=== PATIENT | female | born 1950 | race Caucasian/White ===

== ENCOUNTER 2017-06-18 09:59 | Day surgery (SDC) | payer MEDICARE, MEDICAID ==
[~2017-06-18 09:59] MED LIST: Acetaminophen TAB* 325 MG PO PRN; Buffered Lidocaine 0.9% SYRIN* 5 ML/SYR SYRINGE INTRADERM ONE
[2017-06-18] MEDS ORDERED: Metoprolol Tartrate TAB* 25 MG ONE (10:41)
[2017-06-18] MEDS ORDERED: Buffered Lidocaine 0.9% SYRIN* 5 ML/SYR SYRINGE ONE (10:52)
[2017-06-18] MEDS ORDERED: Midazolam* 1 MG/ML 2 ML VIAL (2 MG) ONE (11:06)
[2017-06-18 11:38] VITALS: BP 106/79
--- NOTE | 2017-06-18 12:00 | OP ---
DATE OF OPERATION/DATE OF DICTATION: 06/18/2017 - [facility] DATE OF : 1950. SURGEON: Dr. Ang Weber. DIETARY MANAGER: None. ANESTHESIA: Topical with intravenous sedation. PRE-OP DIAGNOSIS: Cataract, right eye. POST-OP DIAGNOSIS: Cataract, right eye. OPERATIVE PROCEDURE: Phacoemulsification and cataract extraction with posterior chamber intraocular lens implant, right eye. COMPLICATIONS: None. BLOOD LOSS: None. DESCRIPTION OF PROCEDURE: The patient was brought to the operating room and received a small amount of intra-venous sedation. A drop of Tetracaine was placed in her right eye. She was prepped and draped in the usual sterile fashion for ophthalmic surgery and attention was directed to the right eye where a speculum was placed. A paracentesis was created at the 11 o'clock position and 0.1 cc of 1 percent preservative-free Lidocaine was injected into the anterior chamber followed by DisCoVisc. The eye was digitally stabilized while a 2.75 mm keratome was used to create a triplanar clear corneal incision at the 9 o'clock position. A continuous curvilinear capsulorrhexis was created with a cystotome and Utrata forceps. BSS on a cannula was used to hydrodissect the lens from the capsule. Phacoemulsification was performed in a divide-and- conquer technique to create four fragments which were removed. Residual cortical material was removed with irrigation and aspiration. DisCoVisc was used to inflate the capsular bag and an AUOOTO 23.0 diopter lens was folded and inserted into the capsular bag. DisCoVisc was removed using irrigation and aspiration. BSS on a cannula was used to hydrate the corneal stroma and seal the wound. At the end of the case the pupil was round and the lens was centered. The eye was of normal pressure and the wound was water tight. The speculum was removed and topical Maxitrol ointment was placed on the surface of the eye. The eye was closed, patched and shielded and the patient was sent to the recovery room in stable condition with post operative instructions and follow-up appointment given. [id number]/CPS #: [id number] MTDD
[2017-06-18] MEDS ORDERED: Neomycin/Polymy/Dex OPHTH.OIN* 3.5 GM ONE (12:09)
[2017-06-18] MEDS ORDERED: Lidocaine 1% MPF* 2 ML VIAL ONE (12:09)
[2017-06-18] MEDS ORDERED: Cyclopentolate 1% OPTH.SOL* 2 ML BTL ONE (12:09)
[2017-06-18] MEDS ORDERED: Ketorolac 0.5% OPHTH (NF) 0.5 % 5 ML BTL ONE (12:09)
[2017-06-18] MEDS ORDERED: Phenylephrine 2.5% OPTH.SOL* 2 ML BTL ONE (12:09)
[2017-06-18] MEDS ORDERED: Tetracaine 0.5% OPTH.SOL 4 ML* 1 DROP BTL ONE (12:09)
[2017-06-18] MEDS ORDERED: Tropicamide 1% OPTH.SOL* BTL ONE (12:09)
== END 2017-06-18 11:39 | disposition home or self-care (01) ==
LOC: OREAST 09:59
PROVIDERS: ATTEND Ophthalmology
DX: H25.041 Posterior subcapsular polar age-related cataract, right eye (principal); E11.9 Type 2 diabetes mellitus without complications; Z79.84 Long term (current) use of oral hypoglycemic drugs; J45.909 Unspecified asthma, uncomplicated; J44.9 Chronic obstructive pulmonary disease, unspecified; F32.9 Major depressive disorder, single episode, unspecified; Z86.73 Personal history of transient ischemic attack (TIA), and cerebral infarction without residual deficits
CPT/HCPCS: A9270-GY; J2250; V2632

== ENCOUNTER 2017-06-25 09:24 | Day surgery (SDC) | payer MEDICARE, MEDICAID ==
[2017-06-25] MEDS ORDERED: fentaNYL* 50 MCG/ML 2 ML VIAL (100 MCG VIAL) ONE (09:33)
[2017-06-25] MEDS ORDERED: Midazolam* 1 MG/ML 2 ML VIAL (2 MG) ONE (09:33)
[2017-06-25] MEDS ORDERED: Insulin LISPRO* 1 UNITS UNIT SUBCUT ONE ×3 (09:57→10:02)
[2017-06-25] MEDS ORDERED: Dextrose 50% Syringe 50 ML* 25 GM/50 ML SYRINGE IV PUSH PRN (09:57)
[2017-06-25 10:44] VITALS: BP 158/90
--- NOTE | 2017-06-25 13:10 | OP ---
DATE OF OPERATION/DATE OF DICTATION: 06/25/2017 - [facility] DATE OF : 1950. SURGEON: Dr. Ang Weber. BEHAVIORAL HEALTH CARE COORDINATOR: None. ANESTHESIA: Topical with intravenous sedation. PRE-OP DIAGNOSIS: Cataract, left eye. POST-OP DIAGNOSIS: Cataract, left eye. OPERATIVE PROCEDURE: Phacoemulsification and cataract extraction with posterior chamber intraocular lens implant, left eye. COMPLICATIONS: None. BLOOD LOSS: None. DESCRIPTION OF PROCEDURE: The patient was brought to the operating room and received a small amount of intravenous sedation. A drop of Tetracaine was placed in her left eye. She was prepped and draped in the usual sterile fashion for ophthalmic surgery and attention was directed to the left eye where a speculum was placed. A paracentesis was created at the 5 o'clock position and 0.1 cc of 1 percent preservative-free Lidocaine was injected into the anterior chamber followed by DisCoVisc. The eye was digitally stabilized while a 2.75 mm keratome was used to create a triplanar clear corneal incision at the 3 o'clock position. A continuous curvilinear capsulorrhexis was created with a cystotome and Utrata forceps. BSS on a cannula was used to hydrodissect the lens from the capsule. Phacoemulsification was performed in a divide-and- conquer technique to create four fragments which were removed. Residual cortical material was removed with irrigation and aspiration. DisCoVisc was used to inflate the capsular bag and an AUOOTO 23.5 diopter lens was folded and inserted into the capsular bag. DisCoVisc was removed using irrigation and aspiration. BSS on a cannula was used to hydrate the corneal stroma and seal the wound. At the end of the case the pupil was round and the lens was centered. The eye was of normal pressure and the wound was water tight. The speculum was removed and topical Maxitrol ointment was placed on the surface of the eye. The eye was closed, patched and shielded and the patient was sent to the recovery room in stable condition with post operative instructions and follow-up appointment given. [id number]/CPS #: [id number] MTDD
[2017-06-25] MEDS ORDERED: Lidocaine 1% MPF* 2 ML VIAL ONE (13:55)
[2017-06-25] MEDS ORDERED: Tropicamide 1% OPTH.SOL* BTL ONE (13:55)
[2017-06-25] MEDS ORDERED: Cyclopentolate 1% OPTH.SOL* 2 ML BTL ONE (13:55)
[2017-06-25] MEDS ORDERED: Ketorolac 0.5% OPHTH (NF) 0.5 % 5 ML BTL ONE (13:55)
[2017-06-25] MEDS ORDERED: Neomycin/Polymy/Dex OPHTH.OIN* 3.5 GM ONE (13:55)
[2017-06-25] MEDS ORDERED: Phenylephrine 2.5% OPTH.SOL* 2 ML BTL ONE (13:55)
[2017-06-25] MEDS ORDERED: Tetracaine 0.5% OPTH.SOL 4 ML* 1 DROP BTL ONE (13:55)
== END 2017-06-25 11:05 | disposition home or self-care (01) ==
LOC: OREAST 09:24
PROVIDERS: ATTEND Ophthalmology
DX: H25.12 Age-related nuclear cataract, left eye (principal); E11.9 Type 2 diabetes mellitus without complications; Z79.84 Long term (current) use of oral hypoglycemic drugs; J44.9 Chronic obstructive pulmonary disease, unspecified; I10 Essential (primary) hypertension; E78.00 Pure hypercholesterolemia, unspecified; D50.9 Iron deficiency anemia, unspecified; E87.5 Hyperkalemia; Z87.891 Personal history of nicotine dependence; Z79.4 Long term (current) use of insulin
CPT/HCPCS: A9270-GY; J2250; J3010; V2632

== ENCOUNTER 2018-03-27 15:41 | Inpatient (IN) | payer MEDICARE, MEDICAID ==
[2018-03-27] MEDS ORDERED: Albuterol/Ipratropium NEB.SOL* Albuterol 2.5 MG/Ipratropium 0.5 MG 3 ML INH ONE (16:12)
[2018-03-27] MEDS ORDERED: Dexamethasone IV* 4 MG/ML 5 ML VIAL (20 MG) IVPB ONE (16:12)
[2018-03-27] MEDS ORDERED: NS 0.9% 1000 ML* 1,000 ML IV ONE (16:14)
--- NOTE | 2018-03-27 16:54 | ED ---
Shortness of Breath - HPI Summary HPI Summary: A 67 y/o female presents to the ED c/o dyspnea since 03/13/2018. She has a Hx of osteoporosis and COPD. She usually wears O2 at home when sleeping. She states that Ambien is not helping her anymore. She states that she feels like she is not breathing. Pt complains of chronic pain "from head to toe". - History of Current Complaint Chief Complaint: EDShortnessOfBreath Time Seen by Provider: 03/27/18 15:48 Hx Obtained From: Patient Onset/Duration: Gradual Onset, Lasting Weeks, Still Present Current Severity: Moderate - Allergy/Home Medications Allergies/Adverse Reactions: Allergies Allergy/AdvReac Type Severity Reaction Status Date / Time Adhesive Tape [Plastic Tape] Allergy Mild Rash Verified 06/25/17 09:47 theophylline Allergy Palpitation Verified 03/27/18 17:20 s [employer] baby products Allergy Mild Rash Uncoded 06/25/17 09:47 All Contrasts Allergy Unknown Uncoded 06/25/17 09:47 Reaction Details Home Medications: Home Medications Atorvastatin* [Lipitor*] 10 mg PO DAILY 03/27/18 [History Confirmed 03/27/18] Ergocalciferol (Vitamin D2) [Vitamin D2] 50,000 unit PO WEEKLY 03/27/18 [ History Confirmed 03/27/18] Torsemide TAB* [Demadex*] 20 mg PO DAILY 03/27/18 [History Confirmed 03/27/18] oxyCODONE/Acetamin 10/325(NF) [Percocet 10/325 (NF)] 1 tab PO Q6HR PRN 03/27/18 [History Confirmed 03/27/18] PMH/Surg Hx/FS Hx/Imm Hx Endocrine/Hematology History: Reports: Hx Diabetes - Type 2 diabetes, ON ORAL MEDS & INSULI AT BEDTIME, Hx Anemia - ON DAILY Denies: Hx Thyroid Disease Cardiovascular History: Reports: Hx Congestive Heart Failure, Hx Hypotension, Hx Hypertension - ON DAILY MEDS, Other Cardiovascular Problems/Disorders - Cardiomyopathy /c EF of 15% Denies: Hx Pacemaker/ICD Respiratory History: Reports: Hx Asthma - HAS PRN INHALER, USES ONLY WHEN COLD, ANXIOUS, Hx Chronic Bronchitis, Hx Chronic Obstructive Pulmonary Disease (COPD) , Hx Pneumonia, Hx Seasonal Allergies, Hx Sleep Apnea, Other Respiratory Problems/Disorders - USES OXYGEN AT NIGHT Denies: Hx Lung Cancer GI History: Reports: Hx Gastroesophageal Reflux Disease - ON DAILY MEDS, STATES NO Sx IN LONG TIME Musculoskeletal History: Reports: Hx Arthritis - OA, Hx Back Problems - Pain ( arthropyosis), Hx Bursitis - SCHOULDERS, Hx Congenital Bone Abnormalities - Club foot, Hx Osteoporosis, Other Musculoskeletal History - CLUB FOOT, WEARS LEG BRACES UP TO KNEES Sensory History: Reports: Hx Cataracts - BILATERAL, Hx Contacts or Glasses - GLASSES Denies: Hx Hearing Aid Opthamlomology History: Reports: Hx Cataracts - BILATERAL, Hx Contacts or Glasses - GLASSES Psychiatric History: Reports: Hx Anxiety - HAS MEDS AVAILABLE, Hx Depression, Hx Panic Disorder - CLAUSTROPHOBIA Denies: Hx Bipolar Disorder, Hx of Violent Episodes Against Others - Surgical History Surgery Procedure, Year, and Place: MANY ON KNEES AND FEET,. C SECTIONS x3,. Cardiac cath in 2009. multiple orthopedic surgeries. 1988 HYSTERECTOMY, STATES THIS WAS HER LAST SURGERY. 2013 COLONOSCCOPY/ENDOSCOPY Hx Anesthesia Reactions: No - Immunization History Date of Tetanus Vaccine: Unk Date of Influenza Vaccine: Fall 2014 Infectious Disease History: No Infectious Disease History: Denies: Hx Tuberculosis, Traveled Outside the [place] in Last 30 Days - Family History Known Family History: Positive: Cardiac Disease, Hypertension, Diabetes - Social History Alcohol Use: None Substance Use Type: Reports: None Smoking Status (MU): Former Smoker Type: Cigarettes Amount Used/How Often: 1.5 PPD Length of Time of Smoking/Using Tobacco: Since age 15, except quit once for 5years and once for 2years. Have You Smoked in the Last Year: No Review of Systems Negative: Fever Positive: Other - Positive: dyspnea All Other Systems Reviewed And Are Negative: Yes Physical Exam - Summary Physical Exam Summary: GENERAL: Patient is a well-developed and nourished Female who is lying comfortable in the stretcher. Patient is not in any acute respiratory distress. HEAD AND FACE: Normocephalic EYES: PERRLA, EOMI x 2. EARS: Hearing grossly intact. MOUTH: Dry mucous membranes NECK: Supple, trachea is midline, no adenopathy, no JVD, no carotid bruit. CHEST: Symmetric, no tenderness at palpation LUNGS: Very poor air entry bilaterally. CVS: Regular rate and rhythm, S1 and S2 present, no murmurs or gallops appreciated. ABDOMEN: Soft, non-tender. Bowel sounds are normal. No abdominal abnormal pulsations. EXTREMITIES: Full ROM in all major joints, no edema, no cyanosis or clubbing. NEURO: Alert and oriented x 3. No acute neurological deficits. Speech is normal and follows commands. SKIN: Dry and warm Triage Information Reviewed: Yes Vital Signs On Initial Exam: Initial Vitals Temp Pulse Resp BP Pulse Ox 98.0 F 57 25 153/59 99 03/27/18 15:45 03/27/18 15:45 03/27/18 15:45 03/27/18 15:45 03/27/18 15:45 Vital Signs Reviewed: Yes Diagnostics - Vital Signs Vital Signs Temp Pulse Resp BP Pulse Ox 03/27/18 16:04 55 16 161/94 97 03/27/18 16:00 15 03/27/18 15:51 53 16 98 03/27/18 15:45 98.0 F 57 25 153/59 99 - Laboratory Result Diagrams: 03/28/18 04:23 03/28/18 04:23 Lab Statement: Any lab studies that have been ordered have been reviewed, and results considered in the medical decision making process. - Radiology CXR Radiology Interpretation Completed By: Radiologist Summary of Radiographic Findings: 1. CARDIOMEGALY INCREASED IN SIZE. 2. SMALL LEFT PLEURAL EFFUSION. This report has been reviewed by the ED physician. - EKG 1617 Cardiac Rate: NL - 51 bpm Summary of EKG Findings: Junctional rhythm, LVH, incomplete LBBB on EKG. Course/Dx - Course Course Of Treatment: A 67 y/o female presents to the ED c/o dyspnea since 2017. Remarkable for a chest x-ray that shows cardiomegaly and pleural effusion , BNP elevated. Patient treated with steroids, breathing treatments, Lasix and will be admitted to the hospital for COPD and CHF exacerbation. Case Discussed with hospitalist. Results discussed with patient. - Diagnoses Provider Diagnoses: COPD with exacerbation, CHF (congestive heart failure) - Physician Notifications Discussed Care of Patient With: Joe Up - hospitalist Time Discussed With Above Provider: 17:30 Instructed by Provider To: Admit As Inpatient Discharge - Sign-Out/Discharge Documenting (check all that apply): Patient Departure - ADM - Discharge Plan Condition: Improved Disposition: ADMITTED TO [facility] - Billing Disposition and Condition Condition: IMPROVED Disposition: Admitted to [facility] - Attestation Statements Document Initiated by Scribe: Yes Documenting Scribe: Aleksandr Palomo Provider For Whom Scribe is Documenting (Include Credential): Fiordaliza Colon MD Scribe Attestation: IAleksandr, scribed for Fiordaliza Colon MD on 03/28/18 at 2001. Scribe Documentation Reviewed: Yes Provider Attestation: The documentation as recorded by the Aleksandr booker accurately reflects the service I personally performed and the decisions made by me, Julia Colon MD
[2018-03-27] MEDS ORDERED: Ondansetron INJ* 2 MG/ML VIAL IV ONE (17:04)
--- NOTE | 2018-03-27 17:05 | RAD ---
INDICATION: Cough. COMPARISON: Comparison is made with a prior study from August 01, 2015. TECHNIQUE: AP and lateral views of the chest were obtained. FINDINGS: The heart is moderately enlarged and appears to have increased in size from the prior study. The lungs appear clear. There is a small left pleural effusion. IMPRESSION: 1. CARDIOMEGALY INCREASED IN SIZE. 2. SMALL LEFT PLEURAL EFFUSION.
[2018-03-27 17:57] LABS: ABS Basophils 0.1 10^3/ul (0-0.2); ABS Eosinophils 0.1 10^3/ul (0-0.6); ABS Lymphocytes 0.9 10^3/ul (1.0-4.8); ABS Monocytes 0.6 10^3/ul (0-0.8); ABS Neutrophils 4.9 10^3/ul (1.5-7.7); ABS Nucleated RBC 0 10^3/ul; Eosinophil % 1.9 % (0-6); Hematocrit 32 % (35-47); Hemoglobin 9.9 g/dl (12.0-16.0); Lymphocyte % 13.7 % (25-47); Mean Corpuscular HGB Conc 31 g/dl (31-36); Mean Corpuscular Hemoglobin 25 pg (27-31); Mean Corpuscular Volume 81 fL (80-97); Nucleated Red Blood Cells % 0.1; Platelet Count 193 10^3/ul (150-450); Red Blood Count 3.95 10^6/ul (4.00-5.40); Red Cell Distribution Width 16 % (10.5-15); White Blood Count 6.5 10^3/ul (3.5-10.8)
[2018-03-27 18:07] LABS: INR 1.17 (0.77-1.02)
[2018-03-27 18:11] LABS: EGFR Non-African American 46.3 (>60)
[2018-03-27] MEDS ORDERED: Furosemide IV* 10 MG/ML VIAL (40 MG) IV ONE (18:17)
[2018-03-27] MEDS ORDERED: oxyCODONE/Acetamin 10/325(NF) TAB PO PRN (18:18)
[2018-03-27] MEDS ORDERED: oxyCODONE/Acetamin 5/325 MG* TAB PO ONE (18:31)
--- NOTE | 2018-03-27 19:32 | ADMNOTE ---
Subjective Date of Service: 03/27/18 Interval History: pt is full code this is admission h/p this blog writer spent 60 min to eval pt for admission hpi this is a 67 yr old wf with multiple medical comorbidities presented to er with increase sob for 2-3 weeks ago ---> came in today because she could bear with this sob. initial chest x ray showed small lll pleural effusion + cardiomegaly. initial bnp was 3100 ( baseline bnp since 2015 was around 2000). pt was given lasix in the er. pt has hx of chf with clean coronary ---> echo done 2013 showed ef 20 percent ---> more of non ischemic cardiomyopathy. no recent echo in chart ordered for am. intial ekg showed junctional rthyhm at rate of 51 with neg trop pt was given a sandwich and was found choking afterwards phx type ii dm morbid obesity bedbound can walk to commode with walker at home hx of leginellla/strep pna bacteremia 06/2015 hx of cva with left hemiparesis chronic leg edema miladis on nocturnal oxygen noncompliance prob copd depression vit d def pxhs s/p knee surgery with pins s/p hysterectomy s/p sewing needle trauma in the r leg since age 9 social hx quit cig smoking 7 yrs ago no etoh bedbound could only walk with a walker for distance to commode lives with son fhx mom + ra dm htn Family History: Findings - as above Social History: Findings - as above Past Medical History: Findings - as above Review of Systems - Measurements Intake and Output: Intake and Output Last 24 Hours 03/25/18 03/26/18 03/27/18 03/28/18 06:59 06:59 06:59 06:59 Intake Total 1000 Balance 1000 Weight 285 lb Intake: IV Fluids 1000 Objective Vital Signs - 8 hr 03/27/18 03/27/18 03/27/18 15:45 15:51 16:00 Temperature 98.0 F Pulse Rate 57 53 Respiratory 25 16 15 Rate Blood Pressure 153/59 (mmHg) O2 Sat by Pulse 99 98 Oximetry 03/27/18 03/27/18 03/27/18 16:04 17:00 17:03 Temperature Pulse Rate 55 53 55 Respiratory 16 19 16 Rate Blood Pressure 161/94 (mmHg) O2 Sat by Pulse 97 100 98 Oximetry 03/27/18 03/27/18 03/27/18 18:01 18:18 18:33 Temperature Pulse Rate 97 85 Respiratory 14 32 16 Rate Blood Pressure 164/124 (mmHg) O2 Sat by Pulse 94 89 Oximetry 03/27/18 03/27/18 03/27/18 18:35 19:03 19:07 Temperature Pulse Rate 87 89 86 Respiratory 20 13 23 Rate Blood Pressure 159/102 165/112 (mmHg) O2 Sat by Pulse 86 93 97 Oximetry Oxygen Devices in Use Now: Nasal Cannula Appearance: nad Eyes: No Scleral Icterus, PERRLA Ears/Nose/Mouth/Throat: - - + denture no oral thrush oral mucosa dry Neck: NL Appearance and Movements; NL JVP, Trachea Midline, No Thyroid Enlargement, Masses Respiratory: Symmetrical Chest Expansion and Respiratory Effort Cardiovascular: NL Sounds; No Murmurs; No JVD, RRR Abdominal: NL Sounds; No Tenderness; No Distention Extremities: - - + 3 pedal edema unable to raise le aginst gravity at all Skin: - - venous stasis scar Neurological: Alert and Oriented x 3, - - cranial n 2-12 wnl motor upper 5/5 le 3/5 sensory b/l ue 2/2 le 1/2 plantar reflex downards Result Diagrams: 03/28/18 04:23 03/28/18 04:23 Diagnostic Imaging: chest x ray small pleural effusion cardiomegaly EKG Data: ekg junctional rhytym at rate 51 Assess/Plan/Problems-Billing Assessment: 67 yr old wf with hx of cva bed bound copd nonischemic cardiomyopathy with ef 20 percent 2013 ( clean coronary 2009 ) presented to er with c/o worsening sob for 2 weeks pt's bnp is elevated compared to her baseline bnp back in --> dx acute systolic hf as a cause of sob - Patient Problems (1) Acute systolic HF (heart failure) Current Visit: Yes Status: Acute Code(s): I50.21 - ACUTE SYSTOLIC ( CONGESTIVE) HEART FAILURE SNOMED Code(s): 132697356 Comment: tele with sharon echo in am since last echo was 2013 lasix given from er lung sounds clear when ausculated ---> very low dose lasix may be needed to go home with (2) Type II diabetes mellitus Current Visit: Yes Status: Acute Comment: -Continue ISS -Hold PO meds -Check HBA1c in AM (3) MILADIS (obstructive sleep apnea) Current Visit: Yes Status: Acute Code(s): G47.33 - OBSTRUCTIVE SLEEP APNEA ( ADULT) (PEDIATRIC) SNOMED Code(s): 37211950 Comment: noncompliant with cpap group captain oxygen support at night when sleep (4) Noncompliance Current Visit: Yes Status: Acute Code(s): Z91.19 - PATIENT'S NONCOMPLIANCE W OTH MEDICAL TREATMENT AND REGIMEN SNOMED Code(s): 1487982 Comment: supportive care (5) Nonischemic cardiomyopathy Current Visit: Yes Status: Acute Code(s): I42.8 - OTHER CARDIOMYOPATHIES SNOMED Code(s): 46004489 Comment: -Continue Metoprolol and statins (6) Debility, unspecified Current Visit: Yes Status: Acute Code(s): R53.81 - OTHER MALAISE SNOMED Code(s): 53864067 Comment: unable to move leg against gravity --->? pt vs placement since pt says it is a chronic problem (7) Depression Current Visit: Yes Status: Acute Code(s): F32.9 - MAJOR DEPRESSIVE DISORDER , SINGLE EPISODE, UNSPECIFIED SNOMED Code(s): 68639439 Comment: continue outpt meds (8) Vitamin D deficiency Current Visit: Yes Status: Acute Code(s): E55.9 - VITAMIN D DEFICIENCY, UNSPECIFIED SNOMED Code(s): 94371978 Comment: continue outpt meds (9) Cerebrovascular accident (CVA) with left hemiparesis Current Visit: Yes Status: Acute Code(s): IPT3934 - SNOMED Code(s): 494600007 Comment: ? placement pt is unable to lift her lower ext at all
[2018-03-27] MEDS ORDERED: Albuterol HFA INHALER* 8 gm MDI INH PRN (21:50)
[2018-03-27] MEDS ORDERED: Dextrose 50% Syringe 50 ML* 25 GM/50 ML SYRINGE IV PUSH PRN (21:52)
[2018-03-27] MEDS ORDERED: Ergocalciferol CAP* 50000 UNIT PO SCH (22:00)
[2018-03-27] MEDS: Enoxaparin(*) 40 MG/0.4 ML SYR SUBCUT SCH (23:18)
[2018-03-28] MEDS: oxyCODONE/Acetamin 5/325 MG* TAB PO PRN ×3 (00:24→16:29)
[2018-03-28] MEDS: oxyCODONE TAB* 5 MG TAB PO PRN ×3 (00:25→16:29)
[2018-03-28 04:31] LABS: ABS Basophils 0 10^3/ul (0-0.2); ABS Eosinophils 0 10^3/ul (0-0.6); ABS Lymphocytes 0.4 10^3/ul (1.0-4.8); ABS Monocytes 0.1 10^3/ul (0-0.8); ABS Neutrophils 4.6 10^3/ul (1.5-7.7); ABS Nucleated RBC 0 10^3/ul; Eosinophil % 0.1 % (0-6); Hematocrit 31 % (35-47); Hemoglobin 9.6 g/dl (12.0-16.0); Lymphocyte % 7.8 % (25-47); Mean Corpuscular HGB Conc 31 g/dl (31-36); Mean Corpuscular Hemoglobin 25 pg (27-31); Mean Corpuscular Volume 81 fL (80-97); Mean Platelet Volume 7.7 um3 (7.4-10.4); Nucleated Red Blood Cells % 0.1; Platelet Count 174 10^3/ul (150-450); Red Blood Count 3.84 10^6/ul (4.00-5.40); Red Cell Distribution Width 16 % (10.5-15); White Blood Count 5.2 10^3/ul (3.5-10.8)
[2018-03-28] MEDS ORDERED: Dextrose 50% Syringe 50 ML* 25 GM/50 ML SYRINGE IV PUSH PRN (05:27)
[2018-03-28] MEDS ORDERED: Tiotropium CAP.INH* CAP.INH/18 MCG (USE ORDER SET !) INH ONE (06:54)
[2018-03-28] MEDS ORDERED: Insulin LISPRO* 1 UNITS UNIT SUBCUT SCH (07:30)
[2018-03-28] MEDS: Tiotropium CAP.INH* CAP.INH/18 MCG (USE ORDER SET !) INH SCH (07:44)
[2018-03-28] MEDS: Atorvastatin* 10 MG TAB PO SCH (07:47)
[2018-03-28] MEDS: DULoxetine DR CAP* 60 MG CAP.DR PO SCH (07:47)
[2018-03-28] MEDS: Omeprazole CAP* 20 MG PO SCH (07:47)
[2018-03-28] MEDS: Montelukast Sodium TAB* 10 MG PO SCH (07:47)
[2018-03-28] MEDS: Metoprolol Tartrate TAB* 25 MG PO SCH ×3 (07:48→21:23)
[2018-03-28] MEDS ORDERED: Furosemide IV* 10 MG/ML 2 ML VIAL (20 MG) IV ONE (08:00)
[2018-03-28] MEDS: Insulin LISPRO* 1 UNITS UNIT SUBCUT SCH ×4 (08:47→21:24)
[2018-03-28] MEDS ORDERED: Spiriva Inhaler DEVICE* 1 EACH DEVICE INH ONE (09:00)
[2018-03-28] MEDS ORDERED: glipiZIDE TAB* 5 MG PO SCH ×2 (09:00→21:00)
[2018-03-28] MEDS ORDERED: Perflutren Lipid Microsphere* 3 ML VIAL ONE (13:03)
--- NOTE | 2018-03-28 17:41 | ECHO ---
Patient: RICARDO MISTRY [facility] Rec#: [id number] : 1950 Date: 03/28/2018 Age: 67y Height: 150 cm / 59.1 in Weight: 108.7 kg / 239.6 lbs Sex: F BSA: 1.99 Room#: 432 Admit Date#: 03/27/2018 Type: Inpatient Referring: Kristi Vilchis Reading: Ryan Obrien MD Train Clerk: Cary Elias RN RDCS CC: Antony Omer MD Transthoracic Echocardiogram Indication: CHF BP: 185/124 HR: 72 Rhythm: NSR with PVCs Findings History: Non-ischemic cardiomyopathy, HTN, DM, smoker, COPD, sleep apnea, obesity Technical Comments: The study is technically limited due to patient body habitus. The study was technically limited due to the patient's inability to lay in the left lateral decubitus position. Left Ventricle: The left ventricular chamber size is moderately dilated. There is no left ventricular hypertrophy. There is global hypokinesis of the left ventricle with minor regional variation. There is severely decreased left ventricular systolic function. The estimated ejection fraction is less than 20%. Abnormal left ventricular diastolic function is observed. The patient was unable to perform a Valsalva maneuver. Left Atrium: The left atrium is mild to moderately dilated. Right Ventricle: The right ventricle is mildly dilated. The right ventricular global systolic function is mildly reduced. Right Atrium: The right atrium is mild to moderately dilated. Aortic Valve: The aortic valve is trileaflet. The aortic valve leaflets are mildly thickened. There is aortic annular calcification. There is a trace of aortic regurgitation. There is no evidence of aortic stenosis. Mitral Valve: The mitral valve leaflets are mildly thickened. There is mild to moderate mitral regurgitation. There is no evidence of mitral stenosis. Tricuspid Valve: The tricuspid valve leaflets are normal. There is moderate to severe tricuspid regurgitation. The tricuspid regurgitant jet is wall impinging. There is evidence of moderate to severe pulmonary hypertension. There is no tricuspid stenosis. Pulmonic Valve: The pulmonic valve appears normal. There is mild pulmonic regurgitation. There is no pulmonic stenosis. Pericardium: There is no significant pericardial effusion. A pericardial fat pad is visualized. Aorta: There is no dilatation of the ascending aorta. There is no dilatation of the aortic arch. There is no dilation of the aortic root. Pulmonary Artery: The main pulmonary artery appears normal. Venous: The inferior vena cava is dilated. There is less than 50% respiratory change in the inferior vena cava dimension. Contrast: Definity was used to optimize study. A total of 3 ml of diluted Definity was given IV. Summary: There are changes noted when compared to the previous study done on 01/07/2014, LV EF still severely reduced. There is increase in MR and TR severity from trace for both then. Conclusions The left ventricular chamber size is moderately dilated. There is no left ventricular hypertrophy. There is global hypokinesis of the left ventricle with minor regional variation. There is severely decreased left ventricular systolic function. The estimated ejection fraction is less than 20%. Abnormal left ventricular diastolic function is observed. The patient was unable to perform a Valsalva maneuver. The left atrium is mild to moderately dilated. The right ventricular global systolic function is mildly reduced. There is a trace of aortic regurgitation. There is mild to moderate mitral regurgitation. There is moderate to severe tricuspid regurgitation. There is evidence of moderate to severe pulmonary hypertension. There is mild pulmonic regurgitation. There are changes noted when compared to the previous study done on 01/07/2014, LV EF still severely reduced. There is increase in MR and TR severity from trace for both then. Measurements Name Value Normal Range RVIDd (AP) 2D 3.3 cm (0.9 - 2.6) RVDdMajor (2D) 3.5 cm (2.2 - 4.4) RAd ISD 4CH 5.5 cm (3.4 - 4.9) RA (A4C)W 3.6 cm (2.9 - 4.6) IVSd (2D) 0.7 cm (0.6 - 1) LVPWd (2D) 0.9 cm (0.6 - 1) LVIDd (2D) 6.7 cm (3.6 - 5.4) LVIDs (2D) 6.5 cm - LV FS (2D) 3 % (25 - 45) Aortic Annulus 2.1 cm (1.4 - 2.6) Ao root diameter (2D) 2.9 cm (2.1 - 3.5) Ascending Ao 3 cm (2.1 - 3.4) Aortic arch 1.9 cm (1.8 - 3.4) LA dimension (AP) 2D 4.2 cm (2.3 - 3.8) LAd ISD 4CH 6.5 cm (2.9 - 5.3) LA ISD 4CH W 3.7 cm (2.5 - 4.5) Name Value Normal Range LA ESV BP (A/L) index 35 ml/m2 - Name Value Normal Range MV E-wave Vmax 0.93 m/sec - MV deceleration time 211 msec - MV A-wave Vmax 0.79 m/sec - MV E:A ratio 1.2 ratio - LV septal e' Vmax 0.03 m/sec - LV lateral e' Vmax 0.05 m/sec - LV E:e' septal ratio 31 ratio - LV E:e' lateral ratio 18.6 ratio - Name Value Normal Range AV Vmax 1.5 m/sec - AV VTI 31.1 cm - AV peak gradient 9 mmHg - AV mean gradient 4 mmHg - LVOT Vmax 0.79 m/sec - LVOT VTI 17.3 cm - LVOT peak gradient 3 mmHg - LVOT mean gradient 1 mmHg - KIRK Vmax 0.48 m/sec - Name Value Normal Range TR Vmax 3.3 m/sec - TR peak gradient 44 mmHg - RAP 15 mmHg - RVSP 59 mmHg - IVC diameter 2.2 cm - Name Value Normal Range PV Vmax 0.73 m/sec -
--- NOTE | 2018-03-28 17:47 | PN ---
Subjective Date of Service: 03/28/18 Interval History: Pt seen and examined. Meds and labs reviewed. CC: SOB improved since admission ROS: Denied VALENCIA/dizziness, F/C, N/V, CP, increased cough, sputum production, abd pain, diarrhea, constipation, dysuria, myalgias, arthralgias, throat pain, and new skin lesions. The rest of the 14 point ROS are unremarkable. PHYSICAL EXAM: GEN APPEARANCE: Awake, not in acute distress HEENT: NC/AT, PERRLA, moist oral mucosa, (-) throat erythema NECK: Soft, supple, (-) cervical LAD, (-)JVD HEART: S1S2 WNL, RRR, No MRG CHEST: CTA, BL, GAE, No W/R/R ABD: Soft, ND/NT, NABS 4x Q EXT: No C/C/+1 BLLE SKIN: Warm to touch PSYCH: No active psychosis, hallucinations, depression, SI/HI Family History: Findings - as above Social History: Findings - as above Past Medical History: Findings - as above Objective Active Medications: Albuterol (Ventolin Hfa Inhaler*) 1 puff INH Q6H PRN PRN Reason: SOB/WHEEZING Atorvastatin Calcium (Lipitor*) 10 mg PO DAILY [facility] Last Admin: 03/28/18 07:47 Dose: 10 mg Dextrose (D50w Syringe 50 Ml*) 12.5 gm IV PUSH .FOR FS < 60 - SS PRN PRN Reason: FS < 60 Duloxetine HCl (Cymbalta Cap*) 60 mg PO QAM [facility] Last Admin: 03/28/18 07:47 Dose: 60 mg Enoxaparin Sodium (Lovenox(*)) 40 mg SUBCUT Q24HR@2100 [facility] Last Admin: 03/27/18 23:18 Dose: 40 mg Ergocalciferol (Drisdol Cap*) 50,000 unit PO WEEKLY [facility] Insulin Human Lispro (Humalog*) 0 units SUBCUT [facility]; Protocol Last Admin: 03/28/18 13:05 Dose: 6 unit Metoprolol Tartrate (Lopressor Tab*) 25 mg PO TID [facility] Last Admin: 03/28/18 13:06 Dose: 25 mg Montelukast Sodium (Singulair Tab*) 10 mg PO QAM [facility] Last Admin: 03/28/18 07:47 Dose: 10 mg Omeprazole (Prilosec Cap*) 20 mg PO QAM@0730 [facility] Last Admin: 03/28/18 07:47 Dose: 20 mg Oxycodone HCl (Roxycodone Tab*) 5 mg PO Q6H PRN PRN Reason: PAIN Last Admin: 03/28/18 16:29 Dose: 5 mg Oxycodone/Acetaminophen (Percocet 5/325 Tab*) 1 tab PO Q6H PRN PRN Reason: PAIN Last Admin: 03/28/18 16:29 Dose: 1 tab Tiotropium [place] (Spiriva Cap.Inh*) 1 cap INH DAILY [facility] Last Admin: 03/28/18 07:44 Dose: Not Given Vital Signs - 8 hr 03/28/18 03/28/18 03/28/18 11:10 11:16 15:31 Temperature 97.1 F Pulse Rate Respiratory 18 Rate Blood Pressure 136/98 (mmHg) O2 Sat by Pulse 100 100 Oximetry 03/28/18 03/28/18 15:40 16:29 Temperature Pulse Rate 70 Respiratory 16 18 Rate Blood Pressure 126/54 (mmHg) O2 Sat by Pulse 99 Oximetry Oxygen Devices in Use Now: Nasal Cannula Result Diagrams: 03/28/18 04:23 03/28/18 04:23 Diagnostic Imaging: chest x ray small pleural effusion cardiomegaly EKG Data: ekg junctional rhytym at rate 51 Assess/Plan/Problems-Billing Assessment: 67 yr old wf with hx of cva bed bound copd nonischemic cardiomyopathy with ef 20 percent 2013 ( clean coronary 2009 ) presented to er with c/o worsening sob for 2 weeks pt's bnp is elevated compared to her baseline bnp back in --> dx acute systolic hf as a cause of sob - Patient Problems (1) CHF exacerbation Current Visit: No Status: Acute Code(s): I50.9 - HEART FAILURE, UNSPECIFIED SNOMED Code(s): 23611973 Comment: -Continue with IV diuresis -Will await 2D echo result -Pt mentions shes at 2L NC at home and currently at 2L on exam -Will perform ambulatory sats in AM (2) Type II diabetes mellitus Current Visit: Yes Status: Acute Comment: -Continue ISS -Hold PO meds -Check HBA1c in AM (3) GHADA (obstructive sleep apnea) Current Visit: Yes Status: Acute Code(s): G47.33 - OBSTRUCTIVE SLEEP APNEA ( ADULT) (PEDIATRIC) SNOMED Code(s): 53147782 Comment: -Continue CPAP qHS (4) Nonischemic cardiomyopathy Current Visit: Yes Status: Acute Code(s): I42.8 - OTHER CARDIOMYOPATHIES SNOMED Code(s): 22664897 Comment: -Continue Metoprolol and statins (5) DVT prophylaxis Current Visit: No Status: Acute Code(s): WAI2427 - SNOMED Code(s): 201092416 Comment: -Continue Lovenox Status and Disposition: -For PT eval -For ambulatory sats in AM
[2018-03-28] MEDS: Enoxaparin(*) 40 MG/0.4 ML SYR SUBCUT SCH (21:24)
[2018-03-29 05:23] LABS: Hematocrit 31 % (35-47); Hemoglobin 9.5 g/dl (12.0-16.0); Mean Corpuscular HGB Conc 31 g/dl (31-36); Mean Corpuscular Hemoglobin 25 pg (27-31); Mean Corpuscular Volume 81 fL (80-97); Mean Platelet Volume 7.7 um3 (7.4-10.4); Platelet Count 221 10^3/ul (150-450); Red Blood Count 3.81 10^6/ul (4.00-5.40); Red Cell Distribution Width 16 % (10.5-15); White Blood Count 6.3 10^3/ul (3.5-10.8)
[2018-03-29 06:01] LABS: EGFR Non-African American 35.8 (>60)
[2018-03-29] MEDS: Montelukast Sodium TAB* 10 MG PO SCH (08:03)
[2018-03-29] MEDS: Insulin LISPRO* 1 UNITS UNIT SUBCUT SCH ×4 (08:03→21:25)
[2018-03-29] MEDS: DULoxetine DR CAP* 60 MG CAP.DR PO SCH (08:03)
[2018-03-29] MEDS: Metoprolol Tartrate TAB* 25 MG PO SCH ×3 (08:03→21:28)
[2018-03-29] MEDS: Atorvastatin* 10 MG TAB PO SCH (08:03)
[2018-03-29] MEDS: Tiotropium CAP.INH* CAP.INH/18 MCG (USE ORDER SET !) INH SCH (08:15)
[2018-03-29] MEDS: Omeprazole CAP* 20 MG PO SCH (08:16)
[2018-03-29] MEDS ORDERED: Magnesium Sulf 4 GM/100 ML IV* 4,000 MG/100 ML BAG IVPB ONE (09:04)
[2018-03-29] MEDS: oxyCODONE TAB* 5 MG TAB PO PRN (13:05)
[2018-03-29] MEDS: oxyCODONE/Acetamin 5/325 MG* TAB PO PRN (13:06)
[2018-03-29] MEDS: Nystatin TOP POWDER* 15 GM BTL TOPICAL SCH ×3 (15:05→21:28)
--- NOTE | 2018-03-29 16:20 | PN ---
Subjective Date of Service: 03/29/18 Interval History: Pt seen and examined. Meds and labs reviewed. CC: Feels weak ROS: Denied VALENCIA/dizziness, F/C, N/V, CP, SOB, increased cough, sputum production , abd pain, diarrhea, constipation, dysuria, myalgias, arthralgias, throat pain , and new skin lesions. The rest of the 14 point ROS are unremarkable. PHYSICAL EXAM: GEN APPEARANCE: Asleep, pt kept on falling asleep during interaction, however, with appropriate response, not in acute distress HEENT: NC/AT, PERRLA, moist oral mucosa, (-) throat erythema NECK: Soft, supple, (-) cervical LAD, (-)JVD HEART: S1S2 WNL, RRR, No MRG CHEST: CTA, BL, GAE, No W/R/R ABD: Soft, ND/NT, NABS 4x Q EXT: No C/C/E SKIN: Warm to touch PSYCH: No active psychosis, hallucinations, depression, SI/HI Family History: Findings - as above Social History: Findings - as above Past Medical History: Findings - as above Objective Active Medications: Albuterol (Ventolin Hfa Inhaler*) 1 puff INH Q6H PRN PRN Reason: SOB/WHEEZING Atorvastatin Calcium (Lipitor*) 10 mg PO DAILY [facility] Last Admin: 03/29/18 08:03 Dose: 10 mg Dextrose (D50w Syringe 50 Ml*) 12.5 gm IV PUSH .FOR FS < 60 - SS PRN PRN Reason: FS < 60 Duloxetine HCl (Cymbalta Cap*) 60 mg PO [facility] Last Admin: 03/29/18 08:03 Dose: 60 mg Enoxaparin Sodium (Lovenox(*)) 40 mg SUBCUT Q24HR@2100 [facility] Last Admin: 03/28/18 21:24 Dose: 40 mg Ergocalciferol (Drisdol Cap*) 50,000 unit PO WEEKLY [facility] Insulin Human Lispro (Humalog*) 0 units [facility]UT [facility]; Protocol Last Admin: 03/29/18 13:05 Dose: 6 unit Metoprolol Tartrate (Lopressor Tab*) 25 mg PO TID [facility] Last Admin: 03/29/18 13:06 Dose: 25 mg Montelukast Sodium (Singulair Tab*) 10 mg PO QAM [facility] Last Admin: 03/29/18 08:03 Dose: 10 mg Nystatin (Nystatin Top Powder*) 1 applic TOPICAL TID [facility] Last Admin: 03/29/18 16:05 Dose: 1 applic Omeprazole (Prilosec Cap*) 20 mg PO QAM@0730 [facility] Last Admin: 03/29/18 08:16 Dose: 20 mg Oxycodone HCl (Roxycodone Tab*) 5 mg PO Q6H PRN PRN Reason: PAIN Last Admin: 03/29/18 13:05 Dose: 5 mg Oxycodone/Acetaminophen (Percocet 5/325 Tab*) 1 tab PO Q6H PRN PRN Reason: PAIN Last Admin: 03/29/18 13:06 Dose: 1 tab Tiotropium [place] (Spiriva Cap.Inh*) 1 cap INH DAILY [facility] Last Admin: 03/29/18 08:15 Dose: 1 cap Vital Signs - 8 hr 03/29/18 03/29/18 03/29/18 11:22 13:05 13:06 Temperature 97.4 F Pulse Rate 69 Respiratory 20 20 20 Rate Blood Pressure 121/76 (mmHg) O2 Sat by Pulse 100 Oximetry 03/29/18 03/29/18 15:05 15:06 Temperature Pulse Rate Respiratory 16 20 Rate Blood Pressure (mmHg) O2 Sat by Pulse Oximetry Oxygen Devices in Use Now: Nasal Cannula Result Diagrams: 03/29/18 05:02 03/29/18 05:02 Diagnostic Imaging: chest x ray small pleural effusion cardiomegaly EKG Data: ekg junctional rhytym at rate 51 Assess/Plan/Problems-Billing Assessment: 67 yr old wf with hx of cva bed bound copd nonischemic cardiomyopathy with ef 20 percent 2013 ( clean coronary 2009 ) presented to er with c/o worsening sob for 2 weeks pt's bnp is elevated compared to her baseline bnp back in --> dx acute systolic hf as a cause of sob - Patient Problems (1) CHF exacerbation Current Visit: No Status: Acute Code(s): I50.9 - HEART FAILURE, UNSPECIFIED SNOMED Code(s): 64049329 Comment: -Hold IV diuretics, but may restart in AM given increasing BUN/Crea, maybe overdiuresed, hence making pt weak given she mentions she slept well last night. -Continue low salt diet - 2D echo: No change from previous 2D echo back in 2013; shows LV size moderately dilated, with global hypokinesis of LV with minor regional variation. Severely decreased LVSF, w/EF <20% -Discussed above with Dr. Butler since pt mentions she does not get followed by a pad assembler and has seen a pad assembler somewhere in [facility] many years ago; she cannot remember the details of the plan nor the physician that saw her, nor the specific year she was seen; -Will discuss with pt whether she is amenable for possible defibrillator placement and if so, she will need to be discharged on Life vest then F/U as outpt with Cards---will re-discuss with Dr. Butler in AM -Pt mentions shes at 2L NC at home and currently at 2L on exam -Will perform ambulatory sats in AM (2) Type II diabetes mellitus Current Visit: Yes Status: Acute Comment: -Continue ISS -Hold PO meds -Check HBA1c in AM (3) GHADA (obstructive sleep apnea) Current Visit: Yes Status: Acute Code(s): G47.33 - OBSTRUCTIVE SLEEP APNEA ( ADULT) (PEDIATRIC) SNOMED Code(s): 73810460 Comment: -Continue CPAP qHS (4) Nonischemic cardiomyopathy Current Visit: Yes Status: Acute Code(s): I42.8 - OTHER CARDIOMYOPATHIES SNOMED Code(s): 26177745 Comment: -Continue Metoprolol and statins (5) DVT prophylaxis Current Visit: No Status: Acute Code(s): [id number] - SNOMED Code(s): 302663592 Comment: -Continue Lovenox Status and Disposition: -No identified needs per PT -For ambulatory sats in AM -Possible D/C in 1-2 days
[2018-03-29] MEDS: Enoxaparin(*) 40 MG/0.4 ML SYR SUBCUT SCH (21:25)
[2018-03-30 05:39] LABS: Hematocrit 29 % (35-47); Hemoglobin 9.1 g/dl (12.0-16.0); Mean Corpuscular HGB Conc 31 g/dl (31-36); Mean Corpuscular Hemoglobin 25 pg (27-31); Mean Corpuscular Volume 80 fL (80-97); Mean Platelet Volume 7.7 um3 (7.4-10.4); Platelet Count 202 10^3/ul (150-450); Red Blood Count 3.64 10^6/ul (4.00-5.40); Red Cell Distribution Width 16 % (10.5-15)
[2018-03-30 06:02] LABS: EGFR Non-African American 36.4 (>60)
[2018-03-30] MEDS: Tiotropium CAP.INH* CAP.INH/18 MCG (USE ORDER SET !) INH SCH (07:19)
--- NOTE | 2018-03-30 07:45 | PN ---
Subjective Date of Service: 03/30/18 Interval History: Spoke with pt, reviewed telemetry, which suggests that pt has bigeminy. Informed pt that there is a high likelihood that this abberant rhythm might progress, and if her PVCs become sustained, this is usually incompatible with life. A 12 lead EKG done confirms the telemetry findings. The pt was offered a cardiology consult so she can ask any other questions she can think of. She mentions that she will speak to her son about the matter and would like more time to think about her options. We will readress today and re-discuss with Dr. Butler/Cardiology. Family History: Findings - as above Social History: Findings - as above Past Medical History: Findings - as above Objective Active Medications: Albuterol (Ventolin Hfa Inhaler*) 1 puff INH Q6H PRN PRN Reason: SOB/WHEEZING Last Admin: 03/29/18 20:14 Dose: 1 puff Atorvastatin Calcium (Lipitor*) 10 mg PO DAILY [facility] Last Admin: 03/29/18 08:03 Dose: 10 mg Dextrose (D50w Syringe 50 Ml*) 12.5 gm IV PUSH .FOR FS < 60 - SS PRN PRN Reason: FS < 60 Duloxetine HCl (Cymbalta Cap*) 60 mg PO QAM [facility] Last Admin: 03/29/18 08:03 Dose: 60 mg Enoxaparin Sodium (Lovenox(*)) 40 mg SUBCUT Q24HR@2100 [facility] Last Admin: 03/29/18 21:25 Dose: 40 mg Ergocalciferol (Drisdol Cap*) 50,000 unit PO WEEKLY [facility] Insulin Human Lispro (Humalog*) 0 units SUBCUT [facility]; Protocol Last Admin: 03/29/18 21:25 Dose: 3 unit Metoprolol Tartrate (Lopressor Tab*) 25 mg PO TID [facility] Last Admin: 03/29/18 21:28 Dose: Not Given Montelukast Sodium (Singulair Tab*) 10 mg PO QAM [facility] Last Admin: 03/29/18 08:03 Dose: 10 mg Nystatin (Nystatin Top Powder*) 1 applic TOPICAL TID [facility] Last Admin: 03/29/18 21:28 Dose: Not Given Omeprazole (Prilosec Cap*) 20 mg PO QAM@0730 [facility] Last Admin: 03/29/18 08:16 Dose: 20 mg Oxycodone HCl (Roxycodone Tab*) 5 mg PO Q6H PRN PRN Reason: PAIN Last Admin: 03/29/18 13:05 Dose: 5 mg Oxycodone/Acetaminophen (Percocet 5/325 Tab*) 1 tab PO Q6H PRN PRN Reason: PAIN Last Admin: 03/29/18 13:06 Dose: 1 tab Tiotropium [place] (Spiriva Cap.Inh*) 1 cap INH DAILY [facility] Last Admin: 03/30/18 07:19 Dose: 1 cap Vital Signs - 8 hr 03/30/18 03/30/18 03/30/18 03:25 03:56 07:20 Temperature 97.4 F 97.4 F Pulse Rate 67 67 90 Respiratory 20 20 Rate Blood Pressure 129/76 129/76 (mmHg) O2 Sat by Pulse 100 100 Oximetry Oxygen Devices in Use Now: Nasal Cannula Result Diagrams: 03/30/18 04:55 03/30/18 04:55 Diagnostic Imaging: chest x ray small pleural effusion cardiomegaly EKG Data: ekg junctional rhytym at rate 51 Assess/Plan/Problems-Billing Assessment: 67 yr old wf with hx of cva bed bound copd nonischemic cardiomyopathy with ef 20 percent 2013 ( clean coronary 2009 ) presented to er with c/o worsening sob for 2 weeks pt's bnp is elevated compared to her baseline bnp back in --> dx acute systolic hf as a cause of sob - Patient Problems (1) CHF exacerbation Current Visit: No Status: Acute Code(s): I50.9 - HEART FAILURE, UNSPECIFIED SNOMED Code(s): 58819095 Comment: -Hold IV diuretics, but may restart in AM given increasing BUN/Crea, maybe overdiuresed, hence making pt weak given she mentions she slept well last night. -Continue low salt diet - 2D echo: No change from previous 2D echo back in 2013; shows LV size moderately dilated, with global hypokinesis of LV with minor regional variation. Severely decreased LVSF, w/EF <20% -Discussed above with Dr. Butler since pt mentions she does not get followed by a psychology associate and has seen a psychology associate somewhere in [facility] many years ago; she cannot remember the details of the plan nor the physician that saw her, nor the specific year she was seen; -Will discuss with pt whether she is amenable for possible defibrillator placement and if so, she will need to be discharged on Life vest then F/U as outpt with Cards---will re-discuss with Dr. Butler in AM -Pt mentions shes at 2L NC at home and currently at 2L on exam -Will perform ambulatory sats in AM (2) Type II diabetes mellitus Current Visit: Yes Status: Acute Comment: -Continue ISS -Hold PO meds -Check HBA1c in AM (3) GHADA (obstructive sleep apnea) Current Visit: Yes Status: Acute Code(s): G47.33 - OBSTRUCTIVE SLEEP APNEA ( ADULT) (PEDIATRIC) SNOMED Code(s): 83332961 Comment: -Continue CPAP qHS (4) Nonischemic cardiomyopathy Current Visit: Yes Status: Acute Code(s): I42.8 - OTHER CARDIOMYOPATHIES SNOMED Code(s): 56851962 Comment: -Continue Metoprolol and statins (5) DVT prophylaxis Current Visit: No Status: Acute Code(s): FVM6119 - SNOMED Code(s): 384097601 Comment: -Continue Lovenox Status and Disposition: -No identified needs per PT -For ambulatory sats in AM -Possible D/C in 1-2 days
[2018-03-30] MEDS: Insulin LISPRO* 1 UNITS UNIT SUBCUT SCH ×4 (08:13→21:19)
[2018-03-30] MEDS: DULoxetine DR CAP* 60 MG CAP.DR PO SCH (08:14)
[2018-03-30] MEDS: Atorvastatin* 10 MG TAB PO SCH (08:14)
[2018-03-30] MEDS: Montelukast Sodium TAB* 10 MG PO SCH (08:14)
[2018-03-30] MEDS: Nystatin TOP POWDER* 15 GM BTL TOPICAL SCH ×3 (08:14→20:37)
[2018-03-30] MEDS: Omeprazole CAP* 20 MG PO SCH (08:14)
[2018-03-30] MEDS ORDERED: Senna/Docusate (NF) TAB PO SCH (09:00)
[2018-03-30] MEDS: Metoprolol Tartrate TAB* 25 MG PO SCH ×3 (09:48→20:44)
[2018-03-30] MEDS: Senna TAB PO SCH (09:51)
[2018-03-30] MEDS: Docusate CAP* 100 MG PO SCH (09:55)
[2018-03-30] MEDS: oxyCODONE TAB* 5 MG TAB PO PRN (09:58)
[2018-03-30] MEDS: oxyCODONE/Acetamin 5/325 MG* TAB PO PRN (09:58)
[2018-03-30] MEDS: Lisinopril TAB* 5 MG PO SCH (11:54)
[2018-03-30 14:03] LABS: Urine Appearance Turbid; Urine Blood 3+ (Negative); Urine Color Amber; Urine Ketones Negative (Negative); Urine Protein 1+(30 mg/dL) (Negative); Urine Red Blood Cell 3+(>10/hpf) (Absent); Urine Urobilinogen Negative (Negative); Urine White Blood Cell 3+(>20/hpf) (Absent)
[2018-03-30] MEDS: cefTRIAXone(*) 1 GM in NS 0.9% 50 ML* 50 ML IVPB SCH (15:06)
--- NOTE | 2018-03-30 16:19 | PN ---
Subjective Date of Service: 03/30/18 Interval History: Pt seen and examined. Meds and labs reviewed. CC: N/A ROS: Denied VALENCIA/dizziness, F/C, N/V, CP, SOB, increased cough, sputum production , abd pain, diarrhea, constipation, dysuria, myalgias, arthralgias, throat pain , and new skin lesions. The rest of the 14 point ROS are unremarkable. PHYSICAL EXAM: GEN APPEARANCE: Awake, not in acute distress HEENT: NC/AT, PERRLA, moist oral mucosa, (-) throat erythema NECK: Soft, supple, (-) cervical LAD, (-)JVD HEART: S1S2 WNL, RRR, No MRG CHEST: CTA, BL, GAE, No W/R/R ABD: Soft, ND/NT, NABS 4x Q EXT: No C/C/E SKIN: Warm to touch PSYCH: No active psychosis, hallucinations, depression, SI/HI Family History: Findings - as above Social History: Findings - as above Past Medical History: Findings - as above Objective Active Medications: Albuterol (Ventolin Hfa Inhaler*) 1 puff INH Q6H PRN PRN Reason: SOB/WHEEZING Last Admin: 03/29/18 20:14 Dose: 1 puff Atorvastatin Calcium (Lipitor*) 10 mg PO DAILY [facility] Last Admin: 03/30/18 08:14 Dose: 10 mg Dextrose (D50w Syringe 50 Ml*) 12.5 gm IV PUSH .FOR FS < 60 - SS PRN PRN Reason: FS < 60 Docusate Sodium (Colace Cap*) 100 mg PO DAILY [facility] Last Admin: 03/30/18 09:55 Dose: Not Given Duloxetine HCl (Cymbalta Cap*) 60 mg PO QAM [facility] Last Admin: 03/30/18 08:14 Dose: 60 mg Enoxaparin Sodium (Lovenox(*)) 40 mg SUBCUT Q24HR@2100 [facility] Last Admin: 03/29/18 21:25 Dose: 40 mg Ergocalciferol (Drisdol Cap*) 50,000 unit PO WEEKLY [facility] Ceftriaxone Sodium 1 gm/ (Sodium Chloride) 50 mls @ 200 mls/hr IVPB Q24H [facility] Last Admin: 03/30/18 15:06 Dose: 200 mls/hr Insulin Human Lispro (Humalog*) [address] [facility]; Protocol Last Admin: 03/30/18 11:54 Dose: 3 unit Lisinopril (Prinivil Tab*) 2.5 mg PO DAILY [facility] Last Admin: 03/30/18 11:54 Dose: 2.5 mg Metoprolol Tartrate (Lopressor Tab*) 25 mg PO TID [facility] Last Admin: 03/30/18 13:14 Dose: 25 mg Montelukast Sodium (Singulair Tab*) 10 mg PO QAM [facility] Last Admin: 03/30/18 08:14 Dose: 10 mg Nystatin (Nystatin Top Powder*) 1 applic TOPICAL TID [facility] Last Admin: 03/30/18 13:14 Dose: 1 applic Omeprazole (Prilosec Cap*) 20 mg PO QA@0730 [facility] Last Admin: 03/30/18 08:14 Dose: 20 mg Oxycodone HCl (Roxycodone Tab*) 5 mg PO Q6H PRN PRN Reason: PAIN Last Admin: 03/30/18 09:58 Dose: 5 mg Oxycodone/Acetaminophen (Percocet 5/325 Tab*) 1 tab PO Q6H PRN PRN Reason: PAIN Last Admin: 03/30/18 09:58 Dose: 1 tab Polyethylene Glycol/Electrolytes (Miralax*) 17 gm PO 0800,2100 [facility] Stop: 03/31/18 08:01 Senna (Senokot Tab*) 2 tab PO DAILY [facility] Last Admin: 03/30/18 09:51 Dose: 2 tab Tiotropium [place] (Spiriva Cap.Inh*) 1 cap INH DAILY [facility] Last Admin: 03/30/18 07:19 Dose: 1 cap Torsemide (Demadex*) 20 mg PO ONCE ONE Stop: 03/31/18 08:01 Vital Signs - 8 hr 03/30/18 03/30/18 03/30/18 09:58 11:23 11:30 Temperature 97.8 F Pulse Rate 36 Respiratory 20 20 20 Rate Blood Pressure 133/70 (mmHg) O2 Sat by Pulse 100 Oximetry 03/30/18 03/30/18 03/30/18 11:42 11:58 15:18 Temperature 97.0 F Pulse Rate 61 56 Respiratory 20 20 Rate Blood Pressure 122/51 (mmHg) O2 Sat by Pulse 100 Oximetry Oxygen Devices in Use Now: Nasal Cannula Result Diagrams: 03/30/18 04:55 03/30/18 04:55 Diagnostic Imaging: chest x ray small pleural effusion cardiomegaly EKG Data: ekg junctional rhytym at rate 51 Assess/Plan/Problems-Billing Assessment: 67 yr old wf with hx of cva bed bound copd nonischemic cardiomyopathy with ef 20 percent 2013 ( clean coronary 2009 ) presented to er with c/o worsening sob for 2 weeks pt's bnp is elevated compared to her baseline bnp back in --> dx acute systolic hf as a cause of sob - Patient Problems (1) CHF exacerbation Current Visit: No Status: Acute Code(s): I50.9 - HEART FAILURE, UNSPECIFIED SNOMED Code(s): 12336750 Comment: -Creatinine improved but given ACEI has been recently added, would expect some baseline elevation in renal function test independent of volume status -Will continue to hold diuretics today, but may restart on home dose of Torsemide in AM -Continue low salt diet - 2D echo: No change from previous 2D echo back in 2013; shows LV size moderately dilated, with global hypokinesis of LV with minor regional variation. Severely decreased LVSF, w/EF <20% -Discussed above with Dr. Butler since pt mentions she does not get followed by a wet finisher and has seen a wet finisher somewhere in [facility] many years ago; she cannot remember the details of the plan nor the physician that saw her, nor the specific year she was seen; -As previously mentioned, pt remembered that Dr. Cason previously saw her many years back. A discussion also transpired yesterday regarding her bigeminies and risk for VTach; Per Dr. Butler, she has had bigeminies before as well -Pt mentions she has not spoken with her son yet regarding possible AICD placement; encouraged her to call him today so we can re-discuss her plan of care prior to her anticipated D/C tomorrow -Pt mentions shes at 2L NC at home and currently at 2L on exam (2) Type II diabetes mellitus Current Visit: Yes Status: Acute Comment: -Appropriate FS values -Continue ISS -Hold PO meds -Awaiting HBa1c result (3) GHADA (obstructive sleep apnea) Current Visit: Yes Status: Acute Code(s): G47.33 - OBSTRUCTIVE SLEEP APNEA ( ADULT) (PEDIATRIC) SNOMED Code(s): 20642800 Comment: -Continue CPAP qHS (4) Nonischemic cardiomyopathy Current Visit: Yes Status: Acute Code(s): I42.8 - OTHER CARDIOMYOPATHIES SNOMED Code(s): 86078452 Comment: -Continue Metoprolol and statins (5) DVT prophylaxis Current Visit: No Status: Acute Code(s): [id number] - SNOMED Code(s): 976657866 Comment: -Continue Lovenox Status and Disposition: -No identified needs per PT -For ambulatory sats in AM -Possible D/C in am
[2018-03-30] MEDS: Polyethylene Glycol 3350* 17 GM PACKET PO SCH (20:37)
[2018-03-30] MEDS: Enoxaparin(*) 40 MG/0.4 ML SYR SUBCUT SCH (21:20)
--- NOTE | 2018-03-30 21:40 | CONS ---
CC: Hospitalist Service; Dr. Cason; Dr. Obrien * CARDIOLOGY CONSULT: DATE OF CONSULT: 03/30/18 HISTORY OF PRESENT ILLNESS: I was asked by hospitalist service to see this 67- year- old female patient who presented to the hospital with progressive symptoms of shortness of breath. On reviewing the patient's medical record, she has known severe nonischemic cardiomyopathy. She was followed up by Dr. Cason from cardiology standpoint. Last in 2013, she was recommended to have an ICD, but apparently she was still thinking about it at that time. She had symptoms of progressive shortness of breath. Her initial BNP was 3100 and baseline was about 2000. She was hospitalized for treatment of congestive heart failure. She had significant comorbidities including morbid obesity, diabetes mellitus, type 2, severe cardiomyopathy, chronic swelling of the lower extremities, and history of depression. Her echocardiogram done during this hospitalization showed her left ventricular systolic function globally of 20% or less. There is mild to moderate mitral insufficiency, moderate to severe tricuspid insufficiency. Cardiology consult was further requested for a followup on her previous cardiology evaluation. She gives no symptoms of chest pain. No dizziness. No syncope. No fever. No chills. No nausea. No vomiting. No hematochezia. No skin rash. No abdominal pain. No palpitations. No tachycardia is appreciated. She is in sinus rhythm. There are some PVCs and bigeminy. PAST MEDICAL HISTORY: Her past medical history is complex includin. Severe nonischemic cardiomyopathy. 2. History of diabetes mellitus. 3. Obesity. 4. History of CVA with left hemiparesis. 5. History of systemic arterial hypertension. 6. History of depression. 7. Vitamin D deficiency. 8. History of long use of tobacco consumption, although she quit. 9. History of COPD. PAST SURGICAL HISTORY: 1. Status post hysterectomy. 2. Status post knee surgery in the past. MEDICATIONS: Her medications as an inpatient include: 1. Ventolin inhaler. 2. Lipitor 10 mg daily. 3. Lovenox 40 mg subcutaneously q.24 hours. 4. She is on Humalog. 5. She is on lisinopril 2.5 mg once daily, I just started it. 6. She is on metoprolol 25 mg 3 times a day. 7. Omeprazole 20 mg daily. 8. Oxycodone for pain. SOCIAL HISTORY: She used to smoke. She quit 7 years ago. No history of illicit drug use or alcohol abuse. FAMILY HISTORY: No family history of premature CAD. REVIEW OF SYSTEMS: Her review of all other systems essentially is negative. PHYSICAL EXAMINATION: On exam, she is morbidly obese. She is not in acute distress. She had no symptoms of chest pain. Vitals: Blood pressure 157/75, her pulse is 65, she is in sinus rhythm, respiratory rate 20, temperature 97.3. Head Exam: Normocephalic, atraumatic head. Ears, Nose, and Throat: Essentially benign. Neck: Supple. JVP is not elevated. No carotid bruits. No masses in the neck is appreciated. Chest: Diminished air entry bilaterally with rhonchi at the bases. Heart: Normal. S1, S2. No added sounds. No gallops, no rubs are appreciated. Abdomen: Benign. Positive bowel sounds. Extremities: +1 edema. No cyanosis. No clubbing. Skin exam is normal. Psych : Normal affect and mood. SECURITY FLEX OFFICER: No focal deficit appreciated. DIAGNOSTIC STUDIES/LAB DATA: Her labs showed the following: White blood cell 5 , hemoglobin 9.1, hematocrit 29, and platelet count 202. Her chemistry showed the following: Sodium 133, potassium 4.9, chloride 99, total CO2 28, BUN 38, creatinine 1.43 and LFTs: AST 11, ALT 10. Her chest x-ray done on 03/27/18, cardiomegaly and small left pleural effusion. Her echocardiogram, which was done on 03/28/18, EF 20% or less globally, dilated left ventricle, mild to moderate mitral insufficiency, moderate to severe tricuspid insufficiency, moderate to severe pulmonary hypertension, mild pulmonic insufficiency. IMPRESSION: The patient is a 67-year-old with: 1. Known history of severe nonischemic cardiomyopathy. She declined ICD in the past, which was recommended with her from Cardiology, Dr. Cason, back in 2013. 2. Mild acute on chronic systolic congestive heart failure. 3. Diabetes mellitus, type 2. 4. Systemic arterial hypertension. 5. Morbid obesity. 6. Long use of tobacco consumption; she quit a few years ago. 7. Some PVCs and bigeminy. 8. Abnormal EKG, which showed normal sinus rhythm. There are some T wave inversions in V1, V2, V3; some PVCs are appreciated. 9. Cannot rule out sleep apnea. 10. Mild to moderate mitral insufficiency. 11. Moderate to severe tricuspid insufficiency. 12. Moderate to severe pulmonary hypertension. PLAN: Currently, I do recommend actually proceeding with implantable cardioverter defibrillator. The patient is seriously thinking about at this time. Benefits, risks were explained to the patient including significant and fatal ventricular arrhythmia and sudden ; made aware of this. I answered all her concerns and questions up to her satisfaction. I agree with beta eli treatment. I added low dose ADALID inhibitor, lisinopril 2.5 mg, and definitely titrate up as blood pressure allows. Follow up very closely her BUN and creatinine. Her baseline is low normal. I discussed this with Dr. Blunt from the hospitalist services. TIME SPENT: More than half of at least 60 to 65+ minutes was in the face-to- face education and counseling mode explaining the above and making further recommendations. [id number]/CPS #: [id number] MTDD
[2018-03-31 05:53] LABS: ABS Basophils 0.1 10^3/ul (0-0.2); ABS Eosinophils 0.2 10^3/ul (0-0.6); ABS Lymphocytes 0.8 10^3/ul (1.0-4.8); ABS Monocytes 0.5 10^3/ul (0-0.8); ABS Neutrophils 3.8 10^3/ul (1.5-7.7); ABS Nucleated RBC 0 10^3/ul; Eosinophil % 4.1 % (0-6); Hematocrit 31 % (35-47); Hemoglobin 9.4 g/dl (12.0-16.0); Lymphocyte % 15.1 % (25-47); Mean Corpuscular HGB Conc 30 g/dl (31-36); Mean Corpuscular Hemoglobin 24 pg (27-31); Mean Corpuscular Volume 81 fL (80-97); Mean Platelet Volume 7.5 um3 (7.4-10.4); Nucleated Red Blood Cells % 0; Platelet Count 198 10^3/ul (150-450); Red Blood Count 3.86 10^6/ul (4.00-5.40); Red Cell Distribution Width 17 % (10.5-15); White Blood Count 5.5 10^3/ul (3.5-10.8)
[2018-03-31 06:06] LABS: EGFR Non-African American 40.3 (>60)
[2018-03-31] MEDS: Tiotropium CAP.INH* CAP.INH/18 MCG (USE ORDER SET !) INH SCH (07:45)
[2018-03-31] MEDS ORDERED: Torsemide TAB* 20 MG PO ONE (08:00)
[2018-03-31] MEDS ORDERED: Sodium Polystyrene ORAL.SOL* 15 GM/60 ML BTL PO STA (08:46)
[2018-03-31] MEDS: Metoprolol Tartrate TAB* 25 MG PO SCH (08:50)
[2018-03-31] MEDS: DULoxetine DR CAP* 60 MG CAP.DR PO SCH (08:50)
[2018-03-31] MEDS: Senna TAB PO SCH (08:50)
[2018-03-31] MEDS: Montelukast Sodium TAB* 10 MG PO SCH (08:50)
[2018-03-31] MEDS: Insulin LISPRO* 1 UNITS UNIT SUBCUT SCH ×4 (08:51→20:52)
[2018-03-31] MEDS: Lisinopril TAB* 5 MG PO SCH (08:51)
[2018-03-31] MEDS: Polyethylene Glycol 3350* 17 GM PACKET PO SCH (08:51)
[2018-03-31] MEDS: Docusate CAP* 100 MG PO SCH (08:51)
[2018-03-31] MEDS: Atorvastatin* 10 MG TAB PO SCH (08:52)
[2018-03-31] MEDS: Nystatin TOP POWDER* 15 GM BTL TOPICAL SCH ×3 (08:56→20:52)
[2018-03-31] MEDS: Omeprazole CAP* 20 MG PO SCH (09:28)
[2018-03-31] MEDS: oxyCODONE/Acetamin 5/325 MG* TAB PO PRN ×2 (09:35→20:51)
[2018-03-31] MEDS: oxyCODONE TAB* 5 MG TAB PO PRN ×2 (09:35→20:51)
[2018-03-31 11:49] LABS: EGFR Non-African American 44.1 (>60)
[2018-03-31] MEDS: cefTRIAXone(*) 1 GM in NS 0.9% 50 ML* 50 ML IVPB SCH (13:22)
--- NOTE | 2018-03-31 17:56 | PN ---
Subjective Date of Service: 03/31/18 Interval History: Pt seen and examined. Meds and labs reviewed. CC: N/A ROS: Denied VALENCIA/dizziness, F/C, N/V, CP, SOB, increased cough, sputum production , abd pain, diarrhea, constipation, dysuria, myalgias, arthralgias, throat pain , and new skin lesions. The rest of the 14 point ROS are unremarkable. PHYSICAL EXAM: GEN APPEARANCE: Awake, not in acute distress HEENT: NC/AT, PERRLA, moist oral mucosa, (-) throat erythema, obese and difficult to examine JVD NECK: Soft, supple, (-) cervical LAD, HEART: S1S2 WNL, RRR, No MRG CHEST: CTA, BL, GAE, No W/R/R ABD: Soft, ND/NT, NABS 4x Q EXT: No C/C/Eunclear if legs are edematous or due to adipose, non-pitting SKIN: Warm to touch PSYCH: No active psychosis, hallucinations, depression, SI/HI Family History: Findings - as above Social History: Findings - as above Past Medical History: Findings - as above Objective Active Medications: Albuterol (Ventolin Hfa Inhaler*) 1 puff INH Q6H PRN PRN Reason: SOB/WHEEZING Last Admin: 03/29/18 20:14 Dose: 1 puff Atorvastatin Calcium (Lipitor*) 10 mg PO DAILY [facility] Last Admin: 03/31/18 08:52 Dose: 10 mg Carvedilol (Coreg Tab*) 6.25 mg PO BID [facility] Dextrose (D50w Syringe 50 Ml*) 12.5 gm IV PUSH .FOR FS < 60 - SS PRN PRN Reason: FS < 60 Docusate Sodium (Colace Cap*) 100 mg PO DAILY [facility] Last Admin: 03/31/18 08:51 Dose: 100 mg Duloxetine HCl (Cymbalta Cap*) 60 mg PO QAM [facility] Last Admin: 03/31/18 08:50 Dose: 60 mg Enoxaparin Sodium (Lovenox(*)) 40 mg SUBCUT Q24HR@2100 [facility] Last Admin: 03/30/18 21:20 Dose: 40 mg Ergocalciferol (Drisdol Cap*) 50,000 unit PO WEEKLY [facility] Ceftriaxone Sodium 1 gm/ (Sodium Chloride) 50 mls @ 200 mls/hr IVPB Q24H [facility] Last Admin: 03/31/18 13:22 Dose: 200 mls/hr Insulin Human Lispro (Humalog*) 0 units SUBCUT ACHS [facility]; Protocol Last Admin: 03/31/18 17:06 Dose: 3 unit Lisinopril (Prinivil Tab*) 5 mg PO DAILY [facility] Montelukast Sodium (Singulair Tab*) 10 mg PO QAM [facility] Last Admin: 03/31/18 08:50 Dose: 10 mg Nystatin (Nystatin Top Powder*) 1 applic TOPICAL TID [facility] Last Admin: 03/31/18 13:25 Dose: 1 applic Omeprazole (Prilosec Cap*) 20 mg PO QAM@0730 [facility] Last Admin: 03/31/18 09:28 Dose: 20 mg Oxycodone HCl (Roxycodone Tab*) 5 mg PO Q6H PRN PRN Reason: PAIN Last Admin: 03/31/18 09:35 Dose: 5 mg Oxycodone/Acetaminophen (Percocet 5/325 Tab*) 1 tab PO Q6H PRN PRN Reason: PAIN Last Admin: 03/31/18 09:35 Dose: 1 tab Senna (Senokot Tab*) 2 tab PO DAILY [facility] Last Admin: 03/31/18 08:50 Dose: 2 tab Tiotropium [place] (Spiriva Cap.Inh*) 1 cap INH DAILY [facility] Last Admin: 03/31/18 07:45 Dose: 1 cap Torsemide (Demadex*) 20 mg PO DAILY [facility] Vital Signs - 8 hr 03/31/18 03/31/18 03/31/18 11:04 11:23 16:00 Temperature 97.1 F Pulse Rate 72 Respiratory 20 20 Rate Blood Pressure 154/72 (mmHg) O2 Sat by Pulse 100 100 Oximetry 03/31/18 17:14 Temperature 97.2 F Pulse Rate 79 Respiratory 20 Rate Blood Pressure 145/84 (mmHg) O2 Sat by Pulse 100 Oximetry Oxygen Devices in Use Now: Nasal Cannula Result Diagrams: 03/31/18 05:24 03/31/18 11:18 Microbiology and Other Data: Microbiology 03/30/18 13:40 Urine Culture - Preliminary Urine Klebsiella Pneumoniae Diagnostic Imaging: chest x ray small pleural effusion cardiomegaly EKG Data: ekg junctional rhytym at rate 51 Assess/Plan/Problems-Billing Assessment: 67 yr old wf with hx of cva bed bound copd nonischemic cardiomyopathy with ef 20 percent 2013 ( clean coronary 2009 ) presented to er with c/o worsening sob for 2 weeks pt's bnp is elevated compared to her baseline bnp back in --> dx acute systolic hf as a cause of sob - Patient Problems (1) CHF exacerbation Current Visit: No Status: Acute Code(s): I50.9 - HEART FAILURE, UNSPECIFIED SNOMED Code(s): 84201745 Comment: -Creatinine improved but given ACEI has been recently added, would expect some baseline elevation in renal function test independent of volume status -Will continue to hold diuretics today, but may restart on home dose of Torsemide in AM -Continue low salt diet - 2D echo: No change from previous 2D echo back in 2013; shows LV size moderately dilated, with global hypokinesis of LV with minor regional variation. Severely decreased LVSF, w/EF <20% -Discussed above with Dr. Butler since pt mentions she does not get followed by a locks tender and has seen a locks tender somewhere in [facility] many years ago; she cannot remember the details of the plan nor the physician that saw her, nor the specific year she was seen; -As previously mentioned, pt remembered that Dr. Cason previously saw her many years back. A discussion also transpired yesterday regarding her bigeminies and risk for VTach; Per Dr. Butler, she has had bigeminies before as well -Pt agrees with AICD placement; per Dr. Cason Lifevest is not necessary given she has had bigeminies and low EF for many years and was lost to F/U -Restarted diureses today on Torsemide; held for 2 days given worsening renal function from baseline -Pt mentions shes at 2L NC at home and currently at 2L on exam (2) Type II diabetes mellitus Current Visit: Yes Status: Acute Comment: -Appropriate FS values -Continue ISS -Hold PO meds -Awaiting HBa1c result (3) GHADA (obstructive sleep apnea) Current Visit: Yes Status: Acute Code(s): G47.33 - OBSTRUCTIVE SLEEP APNEA ( ADULT) (PEDIATRIC) SNOMED Code(s): 62747263 Comment: -Continue CPAP qHS (4) Nonischemic cardiomyopathy Current Visit: Yes Status: Acute Code(s): I42.8 - OTHER CARDIOMYOPATHIES SNOMED Code(s): 76382716 Comment: -Continue and statins -Metoprolol changed to Carvedilol -Lisinopril added -Appreciate Dr. Cason's input (5) DVT prophylaxis Current Visit: No Status: Acute Code(s): MZN1911 - SNOMED Code(s): 751536800 Comment: -Continue Lovenox Status and Disposition: -For ambulatory sats in AM---only ambulate pt when she has her leg braces on please -Possible D/C in 1-2 days
[2018-03-31] MEDS: Carvedilol TAB* 6.25 MG PO SCH (20:51)
[2018-03-31] MEDS: Enoxaparin(*) 40 MG/0.4 ML SYR SUBCUT SCH (20:52)
[2018-04-01 06:19] LABS: ABS Basophils 0 10^3/ul (0-0.2); ABS Eosinophils 0.2 10^3/ul (0-0.6); ABS Lymphocytes 0.8 10^3/ul (1.0-4.8); ABS Monocytes 0.4 10^3/ul (0-0.8); ABS Neutrophils 3.1 10^3/ul (1.5-7.7); ABS Nucleated RBC 0 10^3/ul; Eosinophil % 4.3 % (0-6); Hematocrit 28 % (35-47); Hemoglobin 8.7 g/dl (12.0-16.0); Lymphocyte % 18.2 % (25-47); Mean Corpuscular HGB Conc 31 g/dl (31-36); Mean Corpuscular Hemoglobin 25 pg (27-31); Mean Corpuscular Volume 80 fL (80-97); Mean Platelet Volume 7.6 um3 (7.4-10.4); Nucleated Red Blood Cells % 0; Platelet Count 190 10^3/ul (150-450); Red Blood Count 3.51 10^6/ul (4.00-5.40); Red Cell Distribution Width 16 % (10.5-15); White Blood Count 4.6 10^3/ul (3.5-10.8)
[2018-04-01 06:32] LABS: EGFR Non-African American 39.9 (>60)
[2018-04-01] MEDS: Tiotropium CAP.INH* CAP.INH/18 MCG (USE ORDER SET !) INH SCH (08:28)
[2018-04-01] MEDS ORDERED: Torsemide TAB* 20 MG PO SCH (09:00)
[2018-04-01] MEDS: Torsemide TAB* 20 MG PO SCH (09:13)
[2018-04-01] MEDS: Carvedilol TAB* 6.25 MG PO SCH ×2 (09:13→21:12)
[2018-04-01] MEDS: Lisinopril TAB* 5 MG PO SCH (09:13)
[2018-04-01] MEDS: Senna TAB PO SCH (09:13)
[2018-04-01] MEDS: Docusate CAP* 100 MG PO SCH (09:13)
[2018-04-01] MEDS: Atorvastatin* 10 MG TAB PO SCH (09:13)
[2018-04-01] MEDS: Nystatin TOP POWDER* 15 GM BTL TOPICAL SCH ×3 (09:13→21:51)
[2018-04-01] MEDS: Omeprazole CAP* 20 MG PO SCH (09:13)
[2018-04-01] MEDS: DULoxetine DR CAP* 60 MG CAP.DR PO SCH (09:13)
[2018-04-01] MEDS: oxyCODONE TAB* 5 MG TAB PO PRN ×2 (09:13→21:12)
[2018-04-01] MEDS: Montelukast Sodium TAB* 10 MG PO SCH (09:13)
[2018-04-01] MEDS: oxyCODONE/Acetamin 5/325 MG* TAB PO PRN ×2 (09:14→21:11)
[2018-04-01] MEDS: Insulin LISPRO* 1 UNITS UNIT SUBCUT SCH ×4 (09:22→21:11)
[2018-04-01] MEDS: cefTRIAXone(*) 1 GM in NS 0.9% 50 ML* 50 ML IVPB SCH (13:28)
--- NOTE | 2018-04-01 17:31 | PN ---
Subjective Date of Service: 04/01/18 Interval History: Patient reports that her breathing is improved. does report increased fatigue today. Denies chest pain or shortness of breath. reports that leg swelling is improving. Denies abd pain n/v/d. Family History: Findings - as above Social History: Findings - as above Past Medical History: Findings - as above Objective Active Medications: Albuterol (Ventolin Hfa Inhaler*) 1 puff INH Q6H PRN PRN Reason: SOB/WHEEZING Last Admin: 03/29/18 20:14 Dose: 1 puff Atorvastatin Calcium (Lipitor*) 10 mg PO DAILY [facility] Last Admin: 04/01/18 09:13 Dose: 10 mg Carvedilol (Coreg Tab*) 6.25 mg PO BID [facility] Last Admin: 04/01/18 09:13 Dose: 6.25 mg Dextrose (D50w Syringe 50 Ml*) 12.5 gm IV PUSH .FOR FS < 60 - SS PRN PRN Reason: FS < 60 Docusate Sodium (Colace Cap*) 100 mg PO DAILY [facility] Last Admin: 04/01/18 09:13 Dose: 100 mg Duloxetine HCl (Cymbalta Cap*) 60 mg PO QAM [facility] Last Admin: 04/01/18 09:13 Dose: 60 mg Enoxaparin Sodium (Lovenox(*)) 40 mg SUBCUT Q24HR@2100 [facility] Last Admin: 03/31/18 20:52 Dose: 40 mg Ergocalciferol (Drisdol Cap*) 50,000 unit PO WEEKLY [facility] Ceftriaxone Sodium 1 gm/ (Sodium Chloride) 50 mls @ 200 mls/hr IVPB Q24H [facility] Last Admin: 04/01/18 13:28 Dose: 200 mls/hr Insulin Human Lispro (Humalog*) 0 units SUBCUT ACHS [facility]; Protocol Last Admin: 04/01/18 17:01 Dose: 6 unit Lisinopril (Prinivil Tab*) 5 mg PO DAILY [facility] Last Admin: 04/01/18 09:13 Dose: 5 mg Montelukast Sodium (Singulair Tab*) 10 mg PO QAM [facility] Last Admin: 04/01/18 09:13 Dose: 10 mg Nystatin (Nystatin Top Powder*) 1 applic TOPICAL TID [facility] Last Admin: 04/01/18 13:28 Dose: 1 applic Omeprazole (Prilosec Cap*) 20 mg PO QAM@0730 [facility] Last Admin: 04/01/18 09:13 Dose: 20 mg Oxycodone HCl (Roxycodone Tab*) 5 mg PO Q6H PRN PRN Reason: PAIN Last Admin: 04/01/18 09:13 Dose: 5 mg Oxycodone/Acetaminophen (Percocet 5/325 Tab*) 1 tab PO Q6H PRN PRN Reason: PAIN Last Admin: 04/01/18 09:14 Dose: 1 tab Senna (Senokot Tab*) 2 tab PO DAILY [facility] Last Admin: 04/01/18 09:13 Dose: 2 tab Tiotropium [place] (Spiriva Cap.Inh*) 1 cap INH DAILY [facility] Last Admin: 04/01/18 08:28 Dose: 1 cap Torsemide (Demadex*) 20 mg PO DAILY [facility] Last Admin: 04/01/18 09:13 Dose: 20 mg Vital Signs - 8 hr 04/01/18 04/01/18 04/01/18 09:50 11:11 11:54 Temperature 97.7 F Pulse Rate 88 Respiratory 20 20 Rate Blood Pressure 150/79 (mmHg) O2 Sat by Pulse 100 89 Oximetry 04/01/18 04/01/18 15:28 15:34 Temperature 99.6 F Pulse Rate 85 Respiratory 18 Rate Blood Pressure 157/103 (mmHg) O2 Sat by Pulse 98 98 Oximetry Oxygen Devices in Use Now: Nasal Cannula Appearance: appears fatigued resting in the bed, no acute distress Eyes: No Scleral Icterus Ears/Nose/Mouth/Throat: Clear Oropharnyx, Mucous Membranes Moist Neck: NL Appearance and Movements; NL JVP, Trachea Midline Respiratory: Symmetrical Chest Expansion and Respiratory Effort, Clear to Auscultation, - - diminished in the bases bilat. Cardiovascular: NL Sounds; No Murmurs; No JVD, No Edema Abdominal: NL Sounds; No Tenderness; No Distention Extremities: No Edema, No Clubbing, Cyanosis Skin: No Rash or Ulcers Neurological: Alert and Oriented x 3 Nutrition: Taking PO's Result Diagrams: 04/01/18 05:38 04/01/18 05:37 Microbiology and Other Data: Microbiology 03/30/18 13:40 Urine Culture - Preliminary Urine Klebsiella Pneumoniae Diagnostic Imaging: chest x ray small pleural effusion cardiomegaly EKG Data: ekg junctional rhytym at rate 51 Assess/Plan/Problems-Billing Assessment: 67 yr old wf with hx of cva bed bound copd nonischemic cardiomyopathy with ef 20 percent 2013 ( clean coronary 2009 ) presented to er with c/o worsening sob for 2 weeks pt's bnp is elevated compared to her baseline bnp back in --> dx acute systolic hf as a cause of sob - Patient Problems (1) CHF exacerbation Current Visit: No Status: Acute Code(s): I50.9 - HEART FAILURE, UNSPECIFIED SNOMED Code(s): 84530485 Comment: -Acute systolic HF improving -Continue ACEI- will monitor creatinine -Continue low salt diet - 2D echo: No change from previous 2D echo back in 2013; shows LV size moderately dilated, with global hypokinesis of LV with minor regional variation. Severely decreased LVSF, w/EF <20% -Discussed above with Dr. Butler - regarding her bigeminies and risk for VTach; Per Dr. Butler, she has had bigeminies before as well -Pt agrees with AICD placement; per Dr. Cason Lifevest is not necessary given she has had bigeminies and low EF for many years -continue Torsemide -Pt mentions shes at 2L NC at home at night and currently at 2L on exam- walking o2 sats decrease to 89% (2) Nonischemic cardiomyopathy Current Visit: Yes Status: Acute Code(s): I42.8 - OTHER CARDIOMYOPATHIES SNOMED Code(s): 31042654 Comment: -Continue and statins -Metoprolol changed to Carvedilol -Lisinopril added -Appreciate Dr. Cason's input (3) GHADA (obstructive sleep apnea) Current Visit: Yes Status: Acute Code(s): G47.33 - OBSTRUCTIVE SLEEP APNEA ( ADULT) (PEDIATRIC) SNOMED Code(s): 01217672 Comment: noncompliant with cpap mine captain oxygen support at night - wear 2 liters NC at night at home (4) Type II diabetes mellitus Current Visit: Yes Status: Acute Comment: -Appropriate FS values -Continue SS -Hold PO meds - HBa1c 7.8 (5) COPD (chronic obstructive pulmonary disease) Current Visit: No Status: Acute Code(s): J44.9 - CHRONIC OBSTRUCTIVE PULMONARY DISEASE, UNSPECIFIED SNOMED Code(s): 76363388 Comment: Not in exacerbation. - continue home medications (6) GERD (gastroesophageal reflux disease) Current Visit: No Status: Acute Code(s): K21.9 - GASTRO-ESOPHAGEAL REFLUX DISEASE WITHOUT ESOPHAGITIS SNOMED Code(s): 881953759 Comment: Continue omeprazole (7) HTN (hypertension) Current Visit: No Status: Acute Code(s): I10 - ESSENTIAL (PRIMARY) HYPERTENSION SNOMED Code(s): 27895376 Comment: Now better controlled. Continue Metoprolol and Lisinopril. (8) Full code status Current Visit: No Status: Acute Code(s): Z78.9 - OTHER SPECIFIED HEALTH STATUS SNOMED Code(s): 196661393 Status and Disposition: -possible discharge tomorrow
[2018-04-01] MEDS: Enoxaparin(*) 40 MG/0.4 ML SYR SUBCUT SCH (21:11)
[2018-04-02 05:44] LABS: ABS Basophils 0 10^3/ul (0-0.2); ABS Eosinophils 0.3 10^3/ul (0-0.6); ABS Monocytes 0.5 10^3/ul (0-0.8); ABS Neutrophils 3.2 10^3/ul (1.5-7.7); ABS Nucleated RBC 0 10^3/ul; Eosinophil % 5.2 % (0-6); Hematocrit 27 % (35-47); Hemoglobin 8.2 g/dl (12.0-16.0); Lymphocyte % 20.1 % (25-47); Mean Corpuscular HGB Conc 31 g/dl (31-36); Mean Corpuscular Hemoglobin 25 pg (27-31); Mean Corpuscular Volume 80 fL (80-97); Mean Platelet Volume 7.2 um3 (7.4-10.4); Nucleated Red Blood Cells % 0.1; Platelet Count 201 10^3/ul (150-450); Red Blood Count 3.34 10^6/ul (4.00-5.40); Red Cell Distribution Width 16 % (10.5-15)
[2018-04-02 06:07] LABS: EGFR Non-African American 39.2 (>60)
[2018-04-02] MEDS: Tiotropium CAP.INH* CAP.INH/18 MCG (USE ORDER SET !) INH SCH (07:29)
[2018-04-02] MEDS: Docusate CAP* 100 MG PO SCH (07:49)
[2018-04-02] MEDS: Carvedilol TAB* 6.25 MG PO SCH (07:49)
[2018-04-02] MEDS: Atorvastatin* 10 MG TAB PO SCH (07:50)
[2018-04-02] MEDS: Montelukast Sodium TAB* 10 MG PO SCH (07:50)
[2018-04-02] MEDS: oxyCODONE TAB* 5 MG TAB PO PRN (07:50)
[2018-04-02] MEDS: Torsemide TAB* 20 MG PO SCH (07:50)
[2018-04-02] MEDS: Senna TAB PO SCH (07:50)
[2018-04-02] MEDS: DULoxetine DR CAP* 60 MG CAP.DR PO SCH (07:50)
[2018-04-02] MEDS: Lisinopril TAB* 5 MG PO SCH (07:50)
[2018-04-02] MEDS: oxyCODONE/Acetamin 5/325 MG* TAB PO PRN (07:50)
[2018-04-02] MEDS: Omeprazole CAP* 20 MG PO SCH (07:56)
[2018-04-02] MEDS: Nystatin TOP POWDER* 15 GM BTL TOPICAL SCH (08:24)
[2018-04-02] MEDS: Insulin LISPRO* 1 UNITS UNIT SUBCUT SCH ×2 (08:29→12:45)
[2018-04-02 12:06] VITALS: BP 150/82
--- NOTE | 2018-04-03 10:54 | DS ---
CC: Antony Omer MD; Jani Cason MD * DISCHARGE SUMMARY: DATE OF ADMISSION: 03/27/18 DATE OF DISCHARGE: 04/02/18 PRIMARY CARE PROVIDER: Antony Omer MD OUTPATIENT CONFERENCE PLANNER: Jani Cason MD MY ATTENDING WHILE IN THE HOSPITAL: Josue Merino MD * (DICTATED BY MISTY MEZA) PRIMARY DISCHARGE DIAGNOSES: 1. Acute on chronic systolic congestive heart failure exacerbation. 2. Hypertension. SECONDARY DISCHARGE DIAGNOSES: 1. Type 2 diabetes mellitus. 2. Morbid obesity. 3. History of cerebrovascular accident. 4. Chronic leg edema. 5. Obstructive sleep apnea. 6. Chronic obstructive pulmonary disease. 7. Depression. 8. Vitamin D deficiency. STUDIES DONE WHILE IN THE HOSPITAL: Chest x-ray from 03/27/18 read as cardiomegaly increased in size, small left pleural effusion. Transthoracic echocardiogram from 03/28/18 read as left ventricular chamber size is moderately dilated. There is no left ventricular hypertrophy. There is global hypokinesis of the left ventricle with minor regional variation. There is severely decreased left ventricular systolic function. Ejection fraction less than 20%. Abnormal left ventricular diastolic function is observed. The patient was unable to perform Valsalva maneuver. Left atrium is mild to moderately dilated. Right ventricular global systolic function is mildly reduced. There is trace aortic regurgitation. There is mild to moderate mitral regurgitation. There is moderate to severe tricuspid regurgitation. There is evidence of moderate to severe pulmonary hypertension. There is evidence of pulmonic regurgitation. There are changes noted when compared to the previous study done on 01/07/14. The left ventricular ejection fraction is still severely reduced with an increase in mitral regurgitation and tricuspid regurgitation from trace. MEDICATIONS AT DISCHARGE: 1. Singulair 10 mg p.o. q.a.m. 2. Glipizide 10 mg p.o. q.a.m. 3. Cymbalta 60 mg p.o. q.a.m. 4. Glipizide 5 mg p.o. at bedtime. 5. Tiotropium 1 cap inhalation daily. 6. Pantoprazole 40 mg p.o. q.a.m. 7. Albuterol 1 puff inhalation q.6 hours as needed. 8. Percocet 1 tab p.o. q.6 hours as needed. 9. Vitamin D2 3000 units p.o. weekly. 10. Lipitor 10 mg p.o. daily. 11. Torsemide 20 mg p.o. daily. 12. Nystatin powder 1 application topical t.i.d. 13. Senna-S 2 tabs p.o. daily. 14. Carvedilol 6.25 mg p.o. b.i.d. 15. Ferrous sulfate 325 mg p.o. daily. 16. Lisinopril 5 mg p.o. daily. Medication discontinued at discharge: 1. Metoprolol tartrate 25 mg p.o. t.i.d. HOSPITAL COURSE: This is a brief summary of the patient's presentation. For more details, please see the admission notes from Dr. Kristi Vilchis on 03/27/18. In brief, the patient is a 67-year-old female with past medical history significant for the above, who presented to the emergency department with increased shortness of breath with an increased BNP and a known history of CHF. The patient was found to be in junctional rhythm when she was in the emergency department. The patient was admitted to the hospital, given IV Lasix. The patient improved on IV Lasix. The patient had an echocardiogram as above. The patient had high blood pressure while in the hospital. The patient was anemic. The patient had iron deficiency anemia previously evaluated at this institution with hemoglobin slightly elevated from that. The patient had creatinine around 1.2 which is elevated from her baseline which was most recently tested in 2016. The patient had poor glucose control while in the hospital. The patient had negative troponins. The patient was seen in consultation by Dr. Obrien of Cardiology who recommended an ICD placement which was previously recommended in 2013. The patient was started on low dose ADALID inhibitor, lisinopril 2.5 mg which was titrated up to 5 mg. The patient's potassium was initially elevated upon her admission, but then decreased without intervention despite being started on lisinopril. The patient's creatinine as above was stable. The patient was transitioned from metoprolol to carvedilol at the recommendation of Dr. Jani Cason with improved control in her blood pressure. The patient had frequent ectopy on her telemetry monitoring which was consistent with her hospitalization in 2013. The patient had no other obvious cause of her CHF exacerbation. The patient was stable enough for discharge on 04/02/18. PHYSICAL EXAM ON THE DAY OF DISCHARGE: General: The patient is a 67-year-old female who appears stated age and sitting comfortably in the bed, in no acute distress. Vital Signs: At the time of discharge, temperature 98.3, pulse rate 72, respiratory rate 20, oxygen saturation 98% on room air, blood pressure 150/ 82. HEENT: Head: Normocephalic, atraumatic. Sclerae anicteric. No conjunctival injection. Nasal mucosa is moist. Oral mucosa is moist. No pharyngeal erythema, discharge, or exudate. Neck: Supple, nontender. No lymphadenopathy. No carotid bruits auscultated. No JVD. Cardiac: Regular rate and rhythm. No clicks, murmurs, gallops, or rubs. Pulses are 2+ in the bilateral dorsalis pedis, posterior tibialis, and radial areas. 2+ bilateral lower extremity edema. No calf tenderness noted bilaterally. Respiratory: Clear to auscultation bilaterally. No wheezes, rales, or rhonchi. Good air exchange bilaterally. Abdomen: Soft, nontender, nondistended. Bowel sounds present. Normoactive in all 4 quadrants. No hepatospleno-megaly. No abdominal bruits auscultated. No hepatojugular reflux. Genitourinary: No suprapubic or CVA tenderness. Skin: Clean, dry, intact. No rash. Neuro: Cranial nerves II through XII intact. Alert and oriented x3. Psychiatric: Pleasant and cooperative. LABORATORY DATA ON DAY OF DISCHARGE: White blood cell count 5.0, hemoglobin 8.2 , platelet count 201,000. Potassium 4.6, chloride 103, carbon dioxide 30, anion gap 5, BUN 36, creatinine 1.34, glucose 210, calcium 8.5. DISCHARGE PLAN: The patient will be discharged to home. The patient should follow up closely with her primary care provider for repeat CBC and BMP. The patient was previously on iron therapy, but is no longer on it. The patient had a low hemoglobin while in the hospital. The patient will be restarted on iron therapy. The patient had repeat iron studies and CBC as indicated. The patient was started on carvedilol and lisinopril while in the hospital. The patient should have a repeat BMP to assess her expected decrease in creatinine with her ADALID inhibitor as well as possible increase in potassium. If the patient's potassium stays normal, the patient should be considered to be started on spironolactone. The patient should follow up with Dr. Jani Cason within 2 weeks to discuss ICD placement. The patient should at that time also discuss other advanced therapies for CHF such as Entresto or biventricular pacemaker. The patient should have a heart healthy diet, low sodium, without caffeine as well as consistent carbohydrate diet. The patient should follow up with her primary care doctor to discuss the management of her diabetes with a hemoglobin A1c of 7.8. This may be appropriate given the patient's life expectancy. The patient had a path referral and VNS services established which the patient should follow up with. The patient should return to the hospital for alarming symptoms such as severe shortness of breath, chest pain, passing out, or other alarming symptoms. TIME SPENT: Approximately 60 minutes were spent on the discharge of this patient, 30 of which was spent [id number] with the patient obtaining history and physical and discussing treatment plan. MISTY MEZA [id number]/[facility] #: [id number] JESSICA
== END 2018-04-02 13:15 | disposition home or self-care (01) | DRG 292 ==
LOC: ED 15:41 → MEDTELE 19:18
PROVIDERS: ADMIT Internal Medicine; ATTEND Internal Medicine
DX: I11.0 Hypertensive heart disease with heart failure (principal); Z68.42 Body mass index [BMI] 45.0-49.9, adult; I69.354 Hemiplegia and hemiparesis following cerebral infarction affecting left non-dominant side; I50.23 Acute on chronic systolic (congestive) heart failure; E11.9 Type 2 diabetes mellitus without complications; E66.01 Morbid (severe) obesity due to excess calories; G47.33 Obstructive sleep apnea (adult) (pediatric); J44.9 Chronic obstructive pulmonary disease, unspecified; F32.9 Major depressive disorder, single episode, unspecified; E55.9 Vitamin D deficiency, unspecified; R60.0 Localized edema; I08.1 Rheumatic disorders of both mitral and tricuspid valves; I42.8 Other cardiomyopathies; I27.20 Pulmonary hypertension, unspecified; Z74.01 Bed confinement status; Z87.891 Personal history of nicotine dependence; Z83.3 Family history of diabetes mellitus; Z82.49 Family history of ischemic heart disease and other diseases of the circulatory system; Z91.19 Patient's noncompliance with other medical treatment and regimen; Z91.041 Radiographic dye allergy status; Z88.8 Allergy status to other drugs, medicaments and biological substances; Z91.048 Other nonmedicinal substance allergy status; Z79.4 Long term (current) use of insulin; Z79.891 Long term (current) use of opiate analgesic; Z79.899 Other long term (current) drug therapy
CPT/HCPCS: 36415; 71046; 80048; 80053; 81003; 81015; 82553; 83036; 83605; 83735; 83880; 84100; 84443; 84484; 85025; 85027; 85379; 85610; 85730; 87077; 87086; 87186; 90686; 93005; 93306; 94640; 99284; A9270-GY; C8929; G8978-GP-CL; G8979-GP-CL; G8980-GP-CL; J0696; J1100; J1650; J1940; J2405; J3475

== ENCOUNTER 2018-06-16 09:39 | Observation (INO) | payer MEDICARE, MEDICAID ==
[2018-06-16] MEDS ORDERED: Diazepam TAB(*) 5 MG ONE (10:39)
[2018-06-16] MEDS ORDERED: Lidocaine 1% INJ* 10 MG/ML 30 ML SDV ONE (10:57)
[2018-06-16] MEDS ORDERED: Midazolam* 1 MG/ML 5 ML VIAL (5 MG) ONE (10:57)
[2018-06-16] MEDS ORDERED: fentaNYL* 50 MCG/ML 2 ML VIAL (100 MCG VIAL) ONE (10:57)
[2018-06-16] MEDS ORDERED: ceFAZolin* 2 GM* ONE DOSE (Duplex) IVPB (11:00)
[2018-06-16] MEDS ORDERED: ceFAZolin VIAL 1 GM in NS *SYRINGE * * 10 ML ONE (11:00)
[2018-06-16] MEDS ORDERED: Acetaminophen TAB* 325 MG PO PRN (11:55)
[2018-06-16] MEDS ORDERED: Albuterol HFA INHALER* 8 gm MDI INH PRN (14:00)
[2018-06-16] MEDS ORDERED: Senna TAB PO PRN (14:00)
[2018-06-16] MEDS: oxyCODONE/Acetamin 5/325 MG* TAB PO PRN ×3 (14:07→23:42)
[2018-06-16] MEDS ORDERED: Docusate CAP* 100 MG PO PRN (14:12)
[2018-06-16] MEDS ORDERED: Dextrose 50% Syringe 50 ML* 25 GM/50 ML SYRINGE IV PUSH PRN (14:26)
[2018-06-16] MEDS: tiZANidine TAB* 2 MG PO SCH ×2 (15:55→21:19)
[2018-06-16] MEDS: Nystatin TOP POWDER* 15 GM BTL TOPICAL SCH ×2 (15:56→21:25)
[2018-06-16] MEDS: Insulin LISPRO* 1 UNITS UNIT SUBCUT SCH ×2 (18:12→21:19)
[2018-06-16] MEDS: ceFAZolin 1 GM VIAL(*) 1 GM in NS 0.9% 50 ML* 50 ML IVPB SCH (19:36)
--- NOTE | 2018-06-16 20:39 | OP ---
DATE OF OPERATION: 06/16/18 - ROOM #435 DATE OF : 46 SURGEON: Jani Cason MD ANESTHESIA: Local anesthesia with conscious sedation. PRE-OP DIAGNOSIS: Nonischemic cardiomyopathy, ejection fraction less than 30%. POST-OP DIAGNOSIS: Nonischemic cardiomyopathy, ejection fraction less than 30%. OPERATIVE PROCEDURE: Single chamber ICD implantation. ESTIMATED BLOOD LOSS: Nil. COMPLICATIONS: None. INDICATIONS: The patient is a 68-year-old female who has had an ischemic cardiomyopathy for quite sometime. The patient was in the hospital in March for congestive heart failure. Her medications were adjusted. I had seen the patient in followup and suggested ICD implantation, which she agreed to. The risks, benefits were described in detail. Alternatives were discussed. DESCRIPTION OF PROCEDURE: The patient was brought to the procedure room in a fasting state. Informed consent had been obtained prior to the procedure. All labs were reviewed. The patient was placed supine on the procedure table. Her left deltopectoral area was cleaned and draped in the usual fashion. A 1% lidocaine was used for local anesthesia. The axillary vein was entered by a Seldinger technique using ultrasound guidance. A guidewire was placed. Over the guidewire, a 9-British sheath introducer was placed through which a right ventricular lead was advanced to the RV apex. The right ventricular ICD lead is a [employer], model ZRZ423N, serial number [id number], and had a R-wave sensitivity of 20 impendence 590 ohms, threshold 0.5 volts at 0.5 msec. The ventricular lead was sutured to the pectoral fascia. A pocket was fashioned for the ICD. The ICD was attached to the ventricular lead. The ICD is a [employer], model UG0560, serial number [id number]. The device was placed in the pocket. The surgical incision was closed in three layers. The patient tolerated the procedure well with no complications. [id number]/[facility] #: [id number] [facility] HOSPITALGarrick
[2018-06-16] MEDS ORDERED: glipiZIDE TAB* 5 MG PO SCH (21:00)
[2018-06-16] MEDS ORDERED: Insulin GLARGINE(*) 1 UNITS UNIT SUBCUT SCH (21:00)
[2018-06-16] MEDS: Carvedilol TAB* 6.25 MG PO SCH (21:19)
[2018-06-17] MEDS: ceFAZolin 1 GM VIAL(*) 1 GM in NS 0.9% 50 ML* 50 ML IVPB SCH ×2 (03:31→12:49)
[2018-06-17] MEDS: oxyCODONE/Acetamin 5/325 MG* TAB PO PRN ×2 (06:17→10:11)
[2018-06-17 07:43] VITALS: BP 152/43
[2018-06-17] MEDS ORDERED: Torsemide TAB* 20 MG PO SCH (09:00)
[2018-06-17] MEDS ORDERED: Lisinopril TAB* 5 MG PO SCH (09:00)
[2018-06-17] MEDS ORDERED: Ergocalciferol CAP* 50000 UNIT PO SCH (09:00)
[2018-06-17] MEDS ORDERED: DULoxetine DR CAP* 60 MG CAP.DR PO SCH (09:00)
[2018-06-17] MEDS ORDERED: Tiotropium CAP.INH* CAP.INH/18 MCG (USE ORDER SET !) INH SCH (09:00)
[2018-06-17] MEDS ORDERED: Atorvastatin* 10 MG TAB PO SCH (09:00)
[2018-06-17] MEDS ORDERED: Pantoprazole TAB * 40 MG TAB PO SCH (09:00)
[2018-06-17] MEDS ORDERED: Spiriva Inhaler DEVICE* 1 EACH DEVICE INH ONE (09:00)
[2018-06-17] MEDS ORDERED: glipiZIDE TAB* 5 MG PO SCH (09:00)
[2018-06-17] MEDS ORDERED: Ferrous Sulfate TAB* 325 MG PO SCH (09:00)
[2018-06-17] MEDS ORDERED: Montelukast Sodium TAB* 10 MG PO SCH (09:00)
[2018-06-17] MEDS: tiZANidine TAB* 2 MG PO SCH (09:31)
[2018-06-17] MEDS: Insulin LISPRO* 1 UNITS UNIT SUBCUT SCH ×2 (09:32→12:49)
[2018-06-17] MEDS: Carvedilol TAB* 6.25 MG PO SCH (09:32)
[2018-06-17] MEDS: Nystatin TOP POWDER* 15 GM BTL TOPICAL SCH (09:34)
--- NOTE | 2018-06-17 16:06 | DS ---
DISCHARGE SUMMARY: DATE OF ADMISSION: 06/16/18 DATE OF DISCHARGE: Tentative date of discharge pending no complications, . ATTENDING PROVIDER: Dr. Jani Cason, Cardiology * (dictated by Lexi Son NP). Discharge DIAGNOSES: 1. Nonischemic cardiomyopathy, severe left ventricular dysfunction, status post implantable cardioverter defibrillator implantation, on appropriate medical therapy for many years. 2. Systolic heart failure, left ventricular ejection fraction on 03/28/18 via transthoracic echocardiogram less than 20%, compensated on physical examination. Will continue medications which include carvedilol 6.25 mg p.o. b.i.d., lisinopril 5 mg a day, torsemide 20 mg a day. 3. History of ventricular bigeminy, asymptomatic, on Coreg therapy. 4. Status post single-chamber implantable cardioverter defibrillator due to nonischemic cardiomyopathy. Incisional site is clean and intact. Will follow up with device clinic in 4 weeks' time. 5. History of hypertension. We will continue medical therapy. PROCEDURES PERFORMED: The patient presented to [facility] on 06/16/18 for elective single- chamber ICD. Prior to having procedure performed, basic blood work was obtained in March 2018. Dr. Jani Cason performed a single-chamber ICD implantation. [employer] model #[id number], serial #[id number]. Complications, none thus far. COURSE OF HOSPITAL STAY: This is a pleasant 68-year-old female, patient of Dr. Jani Cason, who has a longstanding history of nonischemic cardiomyopathy with severe LV dysfunction despite medical therapy. She is recently hospitalized for decompensated systolic heart failure. Historically, she was not interested in undergoing ICD implantation; however, recently, she was agreeable to having ICD implanted. Subsequently, she presented to [facility] on for elective single-chamber ICD implant. This procedure was performed by Dr. Jani Cason. Postprocedure, she was transferred to telemetry where she has been monitored overnight. There has been no events. According to the nursing staff, the patient offers no complaints. She is worried about ambulation given left upper extremity limitation. However, upon further enquiry , it appears that she is able to ambulate at the typical level prior to presenting to [facility] for ICD implantation. She is aware of that. She is not able to lift left arm above shoulder, which she states she normally does not do for ambulating or transferring. Thus, this should not be a limitation to being discharged home today with her son. Vital signs have been stable. The most recent temperature was 98.1, pulse was 70, blood pressure 152/43, oxygenation 95 % on room air. I reviewed telemetry. She has frequent PVCs with ventricular bigeminy rate of 80s. She is asymptomatic. She appears in stable condition. There is no blood work to review from this morning except [id number] glucose which was 157. Chest x-ray this morning was negative for pneumothorax. She had device interrogated, which was reviewed by Dr. Jani Cason. Thresholds are appropriate. Pending no complications, she is to be discharged home today with her son who is her primary vocational rehabilitation consultant; on a low-cholesterol, sodium- restricted, fluid-restricted diet. No driving for approximately 2 weeks, although, the patient does not drive. She is to follow up with Dr. Jani Cason on 06/24/18 at 1:45 p.m. She is to follow up with the device clinic in 4 weeks. She is to follow up with PCP, Dr. Antony Omer, in 7 to 10 days. RESTRICTIONS: The patient was instructed to use arm sling as directed. Do not lift left arm above shoulder for 8 to 10 weeks. Do not lift left arm above head for 12 weeks. No lifting more than 5 to 10 pounds until further directed. WOUND CARE: She is to not shower 48 hours. She is able to have a sponge bath. She states that her son usually washes her hair and is aware of limitations involving left upper extremity. She is to keep incision clean, dry, and intact for 2 weeks. She is to follow up for suture removal next week, 06/24/18, with Dr. Jani Cason. She is to change dressing daily. She is to call if any symptoms of infection occurs such as fever, chills, discharge from wound sites, inflammation. She verbalized an understanding. Tentative date of discharge is later today. Dr. Jani Cason agrees with the above assessment and plan. I will phone in prescription to her pharmacy for Keflex 250 mg p.o. t.i.d. for 3 days. Otherwise, no medication changes have been made. LEXI SON, BALANCE RECESSER [id number]/[facility] #: [id number] JESSICA
== END 2018-06-17 12:45 | disposition home or self-care (01) ==
LOC: CHICATH 09:39 → MEDTELE 11:55
PROVIDERS: ADMIT Specialist; ATTEND Specialist
DX: I42.9 Cardiomyopathy, unspecified (principal); I50.20 Unspecified systolic (congestive) heart failure; I10 Essential (primary) hypertension; J44.9 Chronic obstructive pulmonary disease, unspecified; G47.33 Obstructive sleep apnea (adult) (pediatric); E66.01 Morbid (severe) obesity due to excess calories; J90 Pleural effusion, not elsewhere classified; E11.9 Type 2 diabetes mellitus without complications; Z87.891 Personal history of nicotine dependence
CPT/HCPCS: 33249; 71045; 71046; 94640; 96372; 96374; 96375; 99156; 99157; A9270-GY; C1722; C1895; G0378; J0690; J2250; J3010

== ENCOUNTER 2019-03-28 06:16 | Emergency (ER) | payer MEDICARE, MEDICAID ==
--- NOTE | 2019-03-28 07:33 | ED ---
Lower Extremity - HPI Summary HPI Summary: The pt is a 68 yr old female presenting to [facility] c/o right foot and calf pain beginning 0800 on 03/27/19. The pt mentions that when she was sitting she felt some pain/cramping in her right hip that radiated down into her leg. She notes that pain can be described a cramping and she rates her current pain severity a 9/10. No aggravating or alleviating factors noted. 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 She also denies any fever. The pt has Hx of club foot and foot surgeries. - History of Current Complaint Chief Complaint: EDExtremityLower Stated Complaint: LEG PAIN PER EMS Time Seen by Provider: 03/28/19 07:15 Hx Obtained From: Patient Onset of Pain: Hours, Prior to Arrival Onset/Duration: Still Present Severity Initially: Severe Severity Currently: Severe Pain Intensity: 9 Pain Scale Used: 0-10 Numeric Timing: Constant, Lasting Hours Location: Is Discrete @ - right leg Associated Signs And Symptoms: Positive: Other - pos - right calf and foot pain/ cramping. Negative: Fever Aggravating Factor(s): Nothing Alleviating Factor(s): Nothing - Allergies/Home Medications Allergies/Adverse Reactions: Allergies Allergy/AdvReac Type Severity Reaction Status Date / Time Adhesive Tape [Plastic Tape] Allergy Mild Rash Verified 03/28/19 06:28 Iodinated Contrast Media Allergy Unknown Verified 03/28/19 06:28 [Iodinated Contrast- Oral Reaction and IV Dye] Details theophylline Allergy Palpitation Verified 03/28/19 06:28 s [employer] baby products Allergy Mild Rash Uncoded 03/28/19 06:28 Home Medications: Home Medications Montelukast Sodium TAB* [Singulair 10 MG TAB*] 10 mg PO DAILY 03/28/19 [History Confirmed 03/28/19] Tizanidine HCl 8 mg PO TID 03/28/19 [History Confirmed 03/28/19] PMH/Surg Hx/FS Hx/Imm Hx Endocrine/Hematology History: Reports: Hx Diabetes - Type 2 diabetes, ON ORAL MEDS & INSULI AT BEDTIME, Hx Anemia - ON DAILY Denies: Hx Thyroid Disease Cardiovascular History: Reports: Hx Congestive Heart Failure, Hx Hypotension, Hx Hypertension - ON DAILY MEDS, Hx Pacemaker/ICD - 06/16/2018, Other Cardiovascular Problems/Disorders - Cardiomyopathy /c EF of 15% Respiratory History: Reports: Hx Asthma - HAS PRN INHALER, USES ONLY WHEN COLD, ANXIOUS, Hx Chronic Bronchitis, Hx Pneumonia, Hx Seasonal Allergies, Hx Sleep Apnea, Other Respiratory Problems/Disorders - USES OXYGEN AT NIGHT Denies: Hx Chronic Obstructive Pulmonary Disease (COPD), Hx Lung Cancer GI History: Reports: Hx Gastroesophageal Reflux Disease - ON DAILY MEDS, STATES NO Sx IN LONG TIME Musculoskeletal History: Reports: Hx Arthritis - OA, Hx Back Problems - Pain ( arthropyosis), Hx Bursitis - SCHOULDERS, Hx Congenital Bone Abnormalities - Club foot, Hx Osteoporosis, Other Musculoskeletal History - CLUB FOOT, WEARS LEG BRACES UP TO KNEES Sensory History: Reports: Hx Cataracts - BILATERAL, Hx Contacts or Glasses - GLASSES Denies: Hx Hearing Aid Opthamlomology History: Reports: Hx Cataracts - BILATERAL, Hx Contacts or Glasses - GLASSES Psychiatric History: Reports: Hx Anxiety - HAS MEDS AVAILABLE, Hx Depression, Hx Panic Disorder - CLAUSTROPHOBIA Denies: Hx Bipolar Disorder, Hx of Violent Episodes Against Others - Surgical History Surgery Procedure, Year, and Place: MANY ON KNEES AND FEET,. C SECTIONS x3,. Cardiac cath in 2009. multiple orthopedic surgeries. 1988 HYSTERECTOMY, STATES THIS WAS HER LAST SURGERY. 2013 COLONOSCCOPY/ENDOSCOPY Hx Anesthesia Reactions: No - Immunization History Date of Tetanus Vaccine: Unk Date of Influenza Vaccine: Fall 2014 Infectious Disease History: No Infectious Disease History: Denies: Hx Tuberculosis, Traveled Outside the [place] in Last 30 Days - Family History Known Family History: Positive: Cardiac Disease, Hypertension, Diabetes - Social History Alcohol Use: Rare Substance Use Type: Reports: None Smoking Status (MU): Former Smoker Type: Cigarettes Amount Used/How Often: 1.5 PPD Length of Time of Smoking/Using Tobacco: Since age 15, except quit once for 5years and once for 2years. Have You Smoked in the Last Year: No Review of Systems Negative: Fever Musculoskeletal: Other - pos - right foot and calf pain All Other Systems Reviewed And Are Negative: Yes Physical Exam - Summary Physical Exam Summary: VITAL SIGNS: Reviewed. GENERAL: Patient is a well-developed and nourished female who is lying comfortable in the stretcher. Patient is not in any acute respiratory distress. HEAD AND FACE: No signs of trauma. No ecchymosis, hematomas or skull depressions. No sinus tenderness. EYES: PERRLA, EOMI x 2, No injected conjunctiva, no nystagmus. EARS: Hearing grossly intact. Ear canals and tympanic membranes are within normal limits. MOUTH: Oropharynx within normal limits. NECK: Supple, trachea is midline, no adenopathy, no JVD, no carotid bruit, no c- spine tenderness, neck with full ROM. CHEST: Symmetric, no tenderness at palpation. LUNGS: Clear to auscultation bilaterally. No wheezing or crackles. CVS: Regular rate and rhythm, S1 and S2 present, no murmurs or gallops appreciated. ABDOMEN: Soft, non-tender. No signs of distention. No rebound, no guarding, and no masses palpated. Bowel sounds are normal. EXTREMITIES: FROM in all major joints, no edema, no cyanosis. Club foot. Calf tenderness. Good pulses and capillary feel. NEURO: Alert and oriented x 3. No acute neurological deficits. Speech is normal and follows commands. SKIN: Dry and warm. Triage Information Reviewed: Yes Vital Signs On Initial Exam: Initial Vitals Temp Pulse Resp BP Pulse Ox 96.0 F 69 18 198/161 98 03/28/19 06:19 03/28/19 06:19 03/28/19 06:19 03/28/19 06:19 03/28/19 06:19 Vital Signs Reviewed: Yes Procedures - Sedation Patient Received Moderate/Deep Sedation with Procedure: No Diagnostics - Vital Signs Vital Signs Temp Pulse Resp BP Pulse Ox 03/28/19 06:19 96.0 F 69 18 198/161 98 - Laboratory Result Diagrams: 03/28/19 07:33 03/28/19 11:54 Lab Statement: Any lab studies that have been ordered have been reviewed, and results considered in the medical decision making process. - Ultrasound Venous Doppler Ultrasound Interpretation Completed By: Radiologist Summary of Ultrasound Findings: IMPRESSION: LIMITED STUDY OF THE CALF, NO DEEP VENOUS THROMBOSIS SEEN. ED Physician has reviewed this report. Lower Extremity Course/Dx - Course Assessment/Plan: Patient is a 68-year-old female with a history of clubfoot presents to the ED with a chief complaint of right hip pain including the right calf. Blood work without any significant abnormality except for WBCs of 11.8, sodium 129, potassium 5.8, 396, BUN is 63 creatinine 1.81, glucose 272, AST 19, alkaline phosphatase 198, CRP 8.12, urinalysis is contaminated therefore well send for urine cultures. Right lower extremity ultrasound impression: Limited study. No DVT. In the ED the patient was given insulin and dextrose for hyperkalemia. Repeat potassium is 5.2. Excellent the patient took a Percocet before she came into the ED in the symptoms were significantly improved. He reassessment of the lower extremity: The patient does have any swelling, no redness, and she does good pulses and good capillary refill. Therefore the patient will be discharged home with follow-up with PCP. Patient is hemodynamically stable alert oriented 3. I discussed all the findings and test results with the patient. Patient was instructed to return to the emergency room immediately if any of the symptoms return worsens. Plan of care was discussed with the patient and understands and agrees. All questions were answered at patient satisfaction. There were no further complaints or concerns. Lung exam before discharge: CTA B/L. Good air exchange. No wheezing or crackles heard. CVS: S1 and S2 present. No murmurs appreciated. Patient is alert and oriented x 3. Patient is hemodynamically stable. Patient will be discharged home with follow up PCP in the next 2-3 days - Diagnoses Provider Diagnoses: Lower extremity pain, Hyperkalemia Discharge ED - Sign-Out/Discharge Documenting (check all that apply): Patient Departure - discharge - Discharge Plan Condition: Stable Disposition: HOME Patient Education Materials: Hyperkalemia (ED), Leg Pain (ED) Referrals: Antony Omer MD [Primary Care Provider] - 3 Days Additional Instructions: FOLLOW UP WITH YOUR PRIMARY CARE PROVIDER WITHIN 3 DAYS. RETURN TO THE ED FOR ANY WORSENING OR NEW SYMPTOMS. - Billing Disposition and Condition Condition: STABLE Disposition: Home - Attestation Statements Document Initiated by Scribe: Yes Documenting Scribe: Santana Edwards Provider For Whom Tine is Documenting (Include Credential): Donte Carolina MD Scribe Attestation: Santana Lockwood, scribed for Donte Carolina MD on 03/28/19 at 1825. Scribe Documentation Reviewed: Yes Provider Attestation: The documentation as recorded by the scribeSantana accurately reflects the service I personally performed and the decisions made by me, Donte Carolina MD Status of Scribe Document: Viewed
[2019-03-28 07:48] LABS: ABS Basophils 0.1 10^3/ul (0-0.2); ABS Eosinophils 0.1 10^3/ul (0-0.6); ABS Monocytes 0.6 10^3/ul (0-0.8); Eosinophil % 1.2 %; Hematocrit 40 % (35-47); Hemoglobin 13.1 g/dL (12.0-16.0); Lymphocyte % 8.8 %; Mean Corpuscular HGB Conc 33 g/dL (31-36); Mean Corpuscular Hemoglobin 29 pg (27-31); Mean Corpuscular Volume 88 fL (80-97); Mean Platelet Volume 8.5 fL (7.4-10.4); Platelet Count 234 10^3/uL (150-450); Red Blood Count 4.52 10^6 /uL (3.70-4.87); Red Cell Distribution Width 13 % (10-15); White Blood Count 11.8 10^3/uL (3.5-10.8)
[2019-03-28 07:57] LABS: Albumin 4.5 g/dL (3.2-5.2); Albumin/Globulin Ratio 1.6 (1-3); BUN/Creatinine Ratio 34.8 (8-20); C Reactive Protein 8.12 mg/L (<8.01); EGFR African American 33.4 (>60); EGFR Non-African American 27.6 (>60); Globulin 2.9 g/dL (2-4); Total Bilirubin 0.5 mg/dL (0.2-1.0); Total Protein 7.4 g/dL (6.4-8.9)
[2019-03-28] MEDS ORDERED: NS 0.9% 1000 ML** 1,000 ML IV ONE (08:22)
[2019-03-28 08:34] LABS: Potassium 5.8 mmol/L (3.5-5.0)
--- OUTSIDE RECORDS SUMMARY | 2019-03-28 08:52 | XMS REPORT | Summary of Care ---
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 Reason for Referral Refer to Department Only (Routine) Status Reason Specialty Diagnoses / Referred By Referred To Procedures Contact Contact Pending Review RHEUMATOLOGY Diagnoses Arthralgia, unspecified joint Arthrogryposis Antony Omer MD [address] [place] [address] Reason for Visit Reason Comments Follow Up Encounter Details Date Type Department Care Team Description 02/16/2019 Office Visit [facility] Antony Omer MD Arthrogryposis (Primary Dx); Practice [address] [facility] Arthralgia, unspecified joint; [address] [place] [address] Malaise and fatigue; [place] [address] Flu vaccine need; [phone] Acute on chronic systolic congestive heart failure (HCC); (Fax) BMI 40.0-44.9, adult ([facility]); Screening for breast cancer; 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 Patient ORDER) needs new pair of braces/shoes for her club feet /arthrogryposis Pen Nome /" Inject 1 Device 100 Each 1 09/06/19 Active 30G X 8 MM Does beneath the skin 16 not apply Misc EVERY BEDTIME. ICD E11.9 Insulin dependent Spacer/Aero-Holdin 1 Each by Does not 1 Each 0 10/19/19 Active g Chambers Does apply route 16 not apply Device DIRECTED. Incontinence 1 Act by Does not 100 Each 2 02/08/20 Active Supply Disposable apply route 18 (ATTENDS NEEDED (for BREATHABLE BRIEFS incontinence). XXL) Does not apply MiscIndications: Incontinence of urine in female PROAIR HFA 108 (90 inhale 1 puff by 8.5 g 1 03/10/20 Active Base) MCG/ACT mouth every 6 18 Inhalation Aero hours if needed Soln for shortness of breath or wheezing sennosides-docusat Take 2 Tabs by 60 Tab 5 04/10/20 Active e sodium mouth DAILY. 18 (SENOKOT-S, SENNA S) 8.6-50 MG Oral Tab Blood Glucose 1 Device by Does 1 Device 0 04/11/20 Active Monitor Software not apply route 18 Does not apply DIRECTED. E11.9 Device last OV 04/10/18 Brand: Insurance preferred Lancets Does not 1 Each by Does not 100 Each 3 04/11/20 Active apply Misc apply route DAILY. 18 Dx:E11.9 last OV 04/10/18 Nystatin 938820 by Apply 0 Active UNIT/GM Apply externally route. externally Powder Incontinence 1 Each by Does not 96 Each 5 05/07/20 Active Supply Disposable apply route FOUR 18 (CERTAINTY TIMES DAILY. T4535 LINERS/WOMEN) Does not apply Misc triamcinolone Apply 2 x a day to 45 g 0 05/08/20 Active (KENALOG,ARISTOCOR the leg til healed 18 T) 0.1 % Apply externally Cream LANTUS SOLOSTAR inject 15 unit 15 mL 0 05/21/20 Active 100 UNIT/ML subcutaneously 18 Subcutaneous once daily at Solution bedtime Pen-injector torsemide take 1 tablet by 90 Tab 0 08/06/19 Active (DEMADEX) 20 MG mouth once daily 19 Oral Tab lisinopril take 1 tablet by 90 Tab 3 08/23/19 Active (PRINIVIL, mouth once daily 19 ZESTRIL) 5 MG Oral Tab carvedilol (COREG) take 1 tablet by 180 Tab 3 08/23/19 Active 6.25 MG Oral Tab mouth twice a day 19 montelukast take 1 tablet by 90 Tab 3 08/23/19 Active (SINGULAIR) 10 MG mouth once daily 19 Oral Tab albuterol 3 mL by 360 Ampule 0 09/10/19 Active (ACCUNEB) 1.25 Inhalation-SVN 19 MG/3ML Inhalation route EVERY FOUR Nebu Soln HOURS NEEDED (SOB). ergocalciferol take 1 capsule by 12 Cap 3 09/25/19 Active (DRISDOL, mouth EVERY 7 DAYS 19 CALCIFEROL, VITAMIN D) 65312 units Oral Cap atorvastatin take 1 tablet by 90 Tab 1 10/21/19 Active (LIPITOR) 10 MG mouth once daily 19 Oral Tab Glucose Blood In 1 Each by In Vitro 100 Each 3 11/06/19 Active Vitro DISK route DAILY. E11.9 19 last OV 07/29/18 SPIRIVA HANDIHALER inhale the 30 Cap 5 12/16/19 Active 18 MCG Inhalation contents of one 19 Cap capsule in the handihaler once daily Ferrous Sulfate take 1 tablet by 30 Tab 2 12/31/19 Active 325 (65 Fe) MG mouth once daily 19 Oral Tab EC tizanidine take 2 tablets by 180 Tab 1 02/06/20 Active (ZANAFLEX) 4 MG mouth three times 19 Oral Tab a day metoprolol take 1 tablet by 270 Tab 1 02/06/20 Active (LOPRESSOR) 25 MG mouth three times 19 Oral Tab a day glipiZIDE take 1 tablet by 90 Tab 1 02/06/20 Active (GLUCOTROL) 10 MG mouth every 19 Oral morning TabIndications: Type 2 diabetes mellitus without complication, with long-term current use of insulin (HCC) pantoprazole take 1 tablet by 90 Tab 1 02/06/20 Active (PROTONIX) 40 MG mouth once daily 19 Oral Tab EC duloxetine take 1 capsule by 90 Cap 1 02/06/20 Active (CYMBALTA) 60 MG mouth once daily 19 Oral CAPSULE ENTERIC COATED PARTICLES glipiZIDE Take 1 Tab by 90 Tab 1 02/17/20 Active (GLUCOTROL) 5 MG mouth DAILY. 19 Oral Tab OXYcodone-acetamin Take 1 Tab by 180 Tab 0 02/17/20 Active ophen (PERCOCET) mouth EVERY FOUR 19 10-325 MG Oral Tab HOURS NEEDED (pain). Max Daily Amount: 6 Tabs. Please fill 09/25/18 metFORMIN take 1 tablet by 180 Tab 0 07/01/19 Discontinued (GLUCOPHAGE) 500 mouth twice a day 18 019 MG Oral Tab with food lisinopril take 1 tablet by 30 Tab 2 07/07/19 Discontinued (PRINIVIL, mouth once daily 19 019 ZESTRIL) 5 MG Oral Tab carvedilol (COREG) take 1 tablet by 60 Tab 2 07/07/19 Discontinued 6.25 MG Oral Tab mouth twice a day 019 ergocalciferol take 1 capsule by 4 Cap 5 07/11/19 Discontinued (DRISDOL, mouth EVERY 7 DAYS CALCIFEROL, VITAMIN D) 32861 units Oral Cap glipiZIDE take 1 tablet by 90 Tab 1 08/06/19 Discontinued (GLUCOTROL) 5 MG mouth once daily 19 019 (Reorder) Oral Tab montelukast Take 1 Tab by 30 Tab 5 08/07/19 Discontinued (SINGULAIR) 10 MG mouth DAILY. 19 019 Oral Tab OXYcodone-acetamin Take 1 Tab by 180 Tab 0 01/21/20 Discontinued ophen (PERCOCET) mouth EVERY FOUR 19 019 (Reorder) 10-325 MG Oral Tab HOURS NEEDED (pain). Max Daily Amount: 6 Tabs. 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 COPD (chronic obstructive pulmonary disease) Depression BMI 40.0-44.9, adult Hypertension Cardiomyopathy Overview: 15% Diabetic retinopathy documented as of this encounter (statuses as of 02/16/2019) Resolved Problems Problem Noted Date Resolved Date Tobacco user 09/13/2014 Type 2 diabetes mellitus without complication 04/13/2018 documented as of this encounter (statuses as of 02/16/2019) Immunizations Name Administration Dates Next Due Influenza (IM) Preservative Free 03/30/2018, 03/30/2013, 01/16/2012 Influenza Vaccine 65 Yrs + 02/16/2019 Influenza Vaccine High Dose 03/06/2017, 04/25/2016, 03/22/2014 PNEUMOCOCCAL POLYSACCHARIDE VACCINE 06/22/2013 Pneumococcal Conjugate(13 Valent) 04/25/2016 Vitamin B12 (1,000 mcg) 02/02/2015, 12/30/2014, 12/29/2014 documented as of this encounter Social History Tobacco Use Types Packs/Day Years Used Date Former Smoker Cigarettes 1 Smokeless Tobacco: Former User Quit: 12/07/2013 Alcohol Use Drinks/Week oz/Week Comments No 0 Standard drinks or equivalent 0.0 Sex Assigned at Date Recorded Not on file Job Start Date Occupation Industry Not on file Not on file Not on file Travel History Travel Start Travel End No recent travel history available. documented as of this encounter Last Filed Vital Signs Vital Sign Reading Time Taken Comments Blood Pressure 138/72 02/16/2019 4:04 PM EDT Pulse 66 02/16/2019 4:04 PM EDT Temperature - - Respiratory Rate - - Oxygen Saturation 96% 02/16/2019 4:04 PM EDT Inhaled Oxygen Concentration - - Weight 93 kg (205 lb) 02/16/2019 4:04 PM EDT Height 151.8 cm (4' 11.75") 02/16/2019 4:04 PM EDT Body Mass Index 40.37 02/16/2019 4:04 PM EDT documented in this encounter Progress Notes Antony Omer MD - 02/16/2019 3:40 PM EDT PATIENT: Naomi Bazzi : 1950 DATE OF SERVICE: 02/16/2019 CHIEF COMPLAINT: Chief Complaint Patient presents with Follow Up Subjective HISTORY OF PRESENT ILLNESS: Naomi Bazzi is a 68-y.o. female. Has lot of pain in her joints, hand shoulder , elbow. She has a diagnosis of arthrgryposis and has been limited in unction since Magi known her. Has motorized scooter and chronic narcotics but she seems to be worse Having a hard time picking up the leg on the right which makes hard to transfer The stroke affected her left leg Last did PT a year ago-mostly legs but also arms and she said it helped In addition to hands ache she drops things She has also been more tired for the last month , only occasional lightheaded. She has a hx of anemia and had transfusions and has been on iron . No recent cbc Last appointment with Cardiology before the fatigue told everything ok but she thinks her defibrillator is moving in for follow up of diabetes mellitus. She has not taken the insulin since November 01 when she moved andlost the pen She not call back . She also stopped metformin due to intolerance . Her a1c only jumped a little to mid 7s /She /denies hypoglycemic symptoms. She said she takes torsemide but that no match with pill count Past Medical History: Diagnosis Date Arthrogryposis Bilateral club feet arthrogryposis BMI 40.0-44.9, adult ([facility]) Bradycardia on oxygen at night 2 liter Cardiomyopathy ([facility]) 15% Chronic pain COPD (chronic obstructive pulmonary disease) ([facility]) CVA (cerebral vascular accident) ([facility]) 01/2014 right thalamic. 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 Depression Diabetic retinopathy ([facility]) Hyperkalemia 2011 aldactone and ADALID but also dye Hypertension Iron deficiency anemia Osteoporosis Pericardial effusion Dr Villafuerte Pneumonia Postmenopausal Pulmonary hypertension ([facility]) severe Short stature Tobacco user Type II or unspecified type diabetes mellitus without mention of complication, not stated as uncontrolled Family History Problem Relation Age of Onset Arthritis Mother Cancer Father Heart Son Heart Unknown Diabetes Unknown Current Outpatient Medications Medication Sig albuterol (ACCUNEB) 1.25 MG/3ML Inhalation Nebu Soln 3 mL by Inhalation- SVN route EVERY FOURHOURS NEEDED (SOB). atorvastatin (LIPITOR) 10 MG Oral Tab take 1 tablet by mouth once daily Blood Glucose Monitor Software Does not apply Device 1 Device by Does not apply route DIRECTED. E11.9 last OV 04/10/18 Brand: Insurance preferred carvedilol (COREG) 6.25 MG Oral Tab take 1 tablet by mouth twice a day duloxetine (CYMBALTA) 60 MG Oral CAPSULE ENTERIC COATED PARTICLES take 1 capsule by mouth once daily ergocalciferol (DRISDOL, CALCIFEROL, VITAMIN D) 29656 units Oral Cap take 1 capsule by mouth EVERY 7 DAYS Ferrous Sulfate 325 (65 Fe) MG Oral Tab EC take 1 tablet by mouth once daily glipiZIDE (GLUCOTROL) 10 MG Oral Tab take 1 tablet by mouth every morning glipiZIDE (GLUCOTROL) 5 MG Oral Tab Take 1 Tab by mouth DAILY. Glucose Blood In Vitro DISK 1 Each by In Vitro route DAILY. E11.9 last OV 07/29/18 Incontinence Supply Disposable (ATTENDS BREATHABLE BRIEFS XXL) Does not apply Misc 1 Act by Does not apply route NEEDED (for incontinence). Incontinence Supply Disposable (CERTAINTY LINERS/WOMEN) Does not apply Misc 1 Each by Does not apply route FOUR TIMES DAILY. T4535 Lancets Does not apply Misc 1 Each by Does not apply route DAILY. Dx: E11.9 last OV 04/10/18 LANTUS SOLOSTAR 100 UNIT/ML Subcutaneous Solution Pen-injector inject 15 unit subcutaneously once daily at bedtime lisinopril (PRINIVIL, ZESTRIL) 5 MG Oral Tab take 1 tablet by mouth once daily metoprolol (LOPRESSOR) 25 MG Oral Tab take 1 tablet by mouth three times a day montelukast (SINGULAIR) 10 MG Oral Tab take 1 tablet by mouth once daily Nystatin 842315 UNIT/GM Apply externally Powder by Apply externally route. OXYcodone-acetaminophen (PERCOCET) 10-325 MG Oral Tab Take 1 Tab by mouth EVERY FOUR HOURS NEEDED (pain). Max Daily Amount: 6 Tabs. Please fill 09/25/18 pantoprazole (PROTONIX) 40 MG Oral Tab EC take 1 tablet by mouth once daily Pen Nome 10/16" 30G X 8 MM Does not apply Misc Inject 1 Device beneath the skin EVERY BEDTIME. ICD E11.9 Insulin dependent PROAIR HFA 108 (90 Base) MCG/ACT Inhalation Aero Soln inhale 1 puff by mouth every 6 hours ifneeded for shortness of breath or wheezing PROCEDURE (MEDICATION COMMUNICATION ORDER) 1 Each by Apply externally route DAILY. Patient needs new pair of braces/shoes for her club feet / arthrogryposis sennosides-docusate sodium (SENOKOT-S, SENNA S) 8.6-50 MG Oral Tab Take 2 Tabs by mouth DAILY. Spacer/Aero-Holding Chambers Does not apply Device 1 Each by Does not apply route DIRECTED. SPIRIVA HANDIHALER 18 MCG Inhalation Cap inhale the contents of one capsule in the handihaleronce daily tizanidine (ZANAFLEX) 4 MG Oral Tab take 2 tablets by mouth three times a day torsemide (DEMADEX) 20 MG Oral Tab take 1 tablet by mouth once daily triamcinolone (KENALOG,ARISTOCORT) 0.1 % Apply externally Cream Apply 2 x a day to the leg til healed No current facility-administered medications for this visit. Allergies Allergen Reactions Morphine Rash Theophylline [Elixophyllin] Cardiac Reaction Increase pulse rate Social History Socioeconomic History Marital status: Spouse name: Not on file Number of children: Not on file Years of education: Not on file Highest education level: Not on file Occupational History Not on file Social Needs Financial resource strain: Not on file Food insecurity: Worry: Not on file Inability: Not on file Transportation needs: Medical: Not on file Non-medical: Not on file Tobacco Use Smoking status: Former Smoker Packs/day: 1.00 Types: Cigarettes Smokeless tobacco: Former User Quit date: 12/07/2013 Substance and Sexual Activity Alcohol use: No Alcohol/week: 0.0 standard drinks Drug use: No Sexual activity: Not on file Lifestyle Physical activity: Days per week: Not on file Minutes per session: Not on file Stress: Not on file Relationships Social connections: Talks on phone: Not on file Gets together: Not on file Attends confucianism service: Not on file Active member of club or organization: Not on file Attends meetings of clubs or organizations: Not on file Relationship status: Not on file Intimate partner violence: Fear of current or ex partner: Not on file Emotionally abused: Not on file Physically abused: Not on file Forced sexual activity: Not on file Other Topics Concern Not on file Social History Narrative Disability 25 years live with son REVIEW OF SYSTEMS: Review of Systems Respiratory: Use of albuterol 1 a day Cardiovascular: Negative for chest pain. Gastrointestinal: No need for senna Objective PHYSICAL EXAM: VITALS: BP 138/72 | Pulse 66 | Ht 4' 11.75" (1.518 m) | Wt 205 lb (93 kg) | SpO2 96% | BMI 40.37 kg/m Body mass index is 40.37 kg/m. Physical Exam Constitutional: No distress. Color ok Eyes: Conjunctivae are normal. Neck: No thyromegaly present. Cardiovascular: Normal rate and regular rhythm. Defibrillator site ok Pulmonary/Chest: Effort normal and breath sounds normal. No respiratory distress. Musculoskeletal: Braces on feet Hands look ok The elbows tender laterally , not able to fully extend. Not really worse with pronation Shoulder rom is painful Lymphadenopathy: She has no cervical adenopathy. Neurological: Negative tinels Vitals reviewed. ASSESSMENT / IMPRESSION: ICD-9-CM ICD-10-CM 1. Arthrogryposis consider more PT if it helped her last year Check for other etiologies of her pain I wont increase the percocet as morphine equivalents now at 90 756.9 Q68.8 2. Arthralgia, unspecified joint 719.40 M25.50 SEDIMENTATION RATE RHEUMATOID FACTOR CREATINE KINASE 3. Malaise and fatigue with some weight gain ? Thyroid or anemia again but she not look anemic 780.79 R53.81 THYROID STIMULATING HORMONE R53.83 CBC WITH DIFFERENTIAL 4. Flu vaccine need V04.81 Z23 VA FLU VACCINE 65 YRS + 5. Acute on chronic systolic congestive heart failure (HCC) can also play a role in fatigue but not fluid overloaded although weight up 428.23 I50.23 428.0 6. BMI 40.0-44.9, adult (HCC) V85.41 Z68.41 7. Screening for breast cancer she refuses V76.10 Z12.31 8. 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, macular edema presence unspecified (HCC) 250.50 E11.3393 362.05 Plan Author: Antony Omer MD 02/16/2019 16:21 documented in this encounter Plan of Treatment Date Type Specialty Care Team Description 02/23/2019 Lab Internal Medicine 06/22/2019 Office Visit [place] [address] [place] [address] [phone] Name Type Priority Associated Diagnoses Order Schedule THYROID STIMULATING Lab Routine Malaise and fatigue Expected: 02/16/2019 HORMONE (Approximate), Expires: 02/17/2020 CBC WITH DIFFERENTIAL Lab Routine Malaise and fatigue Expected: 02/16/2019 (Approximate), Expires: 02/17/2020 SEDIMENTATION RATE Lab Routine Arthralgia, unspecified Expected: 02/16/2019 joint (Approximate), Expires: 02/17/2020 RHEUMATOID FACTOR Lab Routine Arthralgia, unspecified Expected: 02/16/2019 joint (Approximate), Expires: 02/17/2020 CREATINE KINASE Lab Routine Arthralgia, unspecified Expected: 02/16/2019 joint (Approximate), Expires: 02/17/2020 Name Type Priority Associated Diagnoses Order Schedule REFER TO RHEUMATOLOGY Referral Routine Arthralgia, unspecified Expected: , joint Expires: 02/17/2020 Arthrogryposis Health Maintenance Due Date Last Done Comments MEDICARE ANNUAL WELLNESS 1950 VISIT ZOSTER IMMUNIZATION SERIES 1998 (1 of 2) MAMMOGRAM (SCREENING) 12/15/2015 12/14/2014, 07/21/2013 FOOT EXAM 10/22/2017 10/22/2016, 10/22/2016 DEPRESSION SCREENING 03/06/2018 03/06/2017 INFLUENZA VACCINE (#1) 2019 03/30/2018, 03/06/2017, 04/25/2016, Additional history exists HEMOGLOBIN A1C 04/09/2019 01/07/2019, 06/13/2018, 03/30/2018, Additional history exists FALL RISK ASSESSMENT 05/08/2019 05/08/2018, 05/08/2018 Diabetic Eye Exam 09/02/2019 09/01/2018, 04/21/2018, 04/21/2018, Additional history exists LIPID DISORDER SCREENING 10/21/2019 10/20/2018, 06/13/2018, 09/27/2017, Additional history exists OSTEOPOROSIS SCREENING 07/21/2023 07/21/2013 COLONOSCOPY SCREENING 05/03/2025 05/03/2015, 05/03/2015, 01/16/2012 (Declined) PNEUMOCOCCAL 65+YRS Completed 04/25/2016, 06/22/2013 HPV IMMUNIZATION SERIES Aged Out No longer eligible based on patient's age to complete this topic MENINGOCOCCAL VACCINE IMM Aged Out No longer eligible based on patient's age to complete this topic documented as of this encounter Goals Goal Patient Goal Associated Recent Patient-Stated? Author Type Problems Progress Blood Pressure Blood Pressure 138/72 No Kan, < 140/90 (02/16/2019 MD Antony 4:04 PM EDT) Note: This is an individualized treatment (blood pressure) goal for Naomi Bazzi: Displayed above (on the left) is your goal for blood pressure control. Your most recent blood pressure is also shown above, on the right. You should try to achieve blood pressures that are lower than your goal listed above (on the left). Weight increase vs. 18 mo min CHF 23 (02/16/2019 4:04 PM EDT) Antony Escamilla MD (lbs) < 5 Note: This is an individualized treatment (congestive heart failure, CHF) goal for Naomi Bazzi: Displayed above (on the right) is how many pounds you are in excess of your lowest weight over the past 18 months. Note that lower numbers are better. Excessive weight gain often indicates fluid reten tion and worsening heart failure. You should contact your doctor immediately if the above number is too high (above your goal, the number on the left). Depression screen (PHQ-9) total score < 5 Depression No Antony Omer MD Note: This is an individualized treatment (depression) goal for Naomi Bazzi: Displayed above is your goal for a depression screening (PHQ-9) score that would indicate good control of your depression. Diabetes < 7.0 Diabetes 7.6 (01/07/2019 1:12 PM EDT) Antony Escamilla MD Note: 1. Check Feet Daily. 2. See Eye Doctor Yearly. Yearly dilated eye exam helps prevent blindness. 3. Control of Diabetes by Glycohemoglobin. Should have glycohemoglobin check every six months if less than 7, and every 3 months if greater than 7. 4. Control of Diabetes 2 hour post prandial-<140. 5. Control of Diabetes by Fasting Glucose. Range of 80-120. 6. Prevent Kidney Failure. Yearly check for protein in urine, talk with doctor about medications to prevent Diabetic Kidney Disease. 7. Prevention of Kidney Disease. An ADALID inhibitor protects the kidneys. Diabetes < 7.0 Diabetes Type 2 diabetes 7.6 (01/07/2019 1:12 Antony Escamilla mellitus without PM EDT) complication Note: Diabetes Care Plan According to current 2014 ADA guidelines the patient A1C goal is less than 7. The patient's last A1C was Lab Results Lab Results Value Date/Time GLYCO 6.4 03/22/2014 1227 GLYCO 8.8 04/27/2013 1133 The patient is:at goal . As your provider, it is important that I advise you regarding: your current medications and help you with any challenges you may face taking your medications as directed (ex. instructions, cost, side effects, and interactions). Important lifestyle changes:diet your clinical goals and how you can achieve success:weight reduction and diet management medication management: adjusted medications as appropriate patient education/self-management tools provided: Current self-management tools adequate To successfully manage my Diabetes I will: have lab work every six months if my previous A1c was 7 or less. If my results were greater than 7, I will have lab work every three months. My goal is to control my diabetes by keeping A1c below 7.0 take medications every day as prescribed by my healthcare provider and if unable to take them I will discuss with my provider. exercise/walk not able day(s) per week. If I experience chest pain, chest tightness, or shortness of breath, I will seek medical attention immediately. check feet daily. If sores or irritation are noticed, will seek medical attention. follow a low carbohydrate and low fat diet. My goal is an LDL (bad cholesterol) number less than 100 when I have my routine lab work. check blood sugar as instructed and will call my healthcare provider if the results are consistently below 70 or above 300. I will monitor for symptoms of low blood sugar (feeling faint, dizzy, lig htheaded, jittery, sweaty, or hungry), if symptoms are noticed, I will eat or drink something (glucose tabs, orange juice, candy) to help raise sugar. record my blood sugar results (including dextrose sticks). [employer] is safe and secure way for you to do this in your medical record online. try to obtain an ideal body weight. My recent weight was Weight: 217 lb 3.2 oz (98.521 kg). My weight loss goal for my next office visit is 200. to prevent kidney problems common to people with diabetes I will complete a yearly Microalbumin to check for protein in urine. I will talk with my healthcare provider about medications to prevent diabetic renal disease. to prevent diabetic retinopathy I will see an eye doctor yearly. A yearly dilated eye exam helps prevent blindness. if currently smoking, will discuss how to quit smoking with my healthcare provider and work towards quitting. Glycohemoglobin A1c < 7.0 Diabetes 7.6 (01/07/2019 1:12 PM No Antony Omer MD EDT) Note: This is an individualized treatment (diabetes control, HgbA1C) goal for Naomi Bazzi: Displayed above is your progress towards your HgbA1C goal. Your goal is shown above (on the left); your most recent HgbA1C is shown on the right. Note that lower numbers are better. Keep a regular sleep schedule Lifestyle No Antony Omer MD Note: This is an individualized lifestyle goal for Naomi Bazzi: Please maintain a regular sleep schedule. This may help with some symptoms of depression. Keep immunizations current Lifestyle No Antony Omer MD Note: This is an individualized lifestyle goal for Naomi Bazzi: Please be sure to keep up-to-date on recommended immunizations. For example, this would include a yearly influenza vaccine. Immunization status can be seen by looking at the Health Maintenance sections of your e[facility], Plan of Care, and any After Visit Summaries. Consume a ma-eomrp-troq diet Lifestyle No Antony Omer MD Note: This is an individualized lifestyle goal for Naomi Bazzi: Please do not add additional salt to your food. Additional salt may lead to fluid retention and worsen your congestive heart failure. Take all prescribed medications as directed Self-management No Antony Omer MD Note: This is an individualized self-management goal for Naomi Bazzi: Please take all prescribed medications as directed. 1. Do not skip doses. If you cannot afford your medications, talk with your doctor. 2. Use a pill reminder system such as a pill box if needed. Your pharmacist can help you with this. 3. Contact your Pharmacy 5 days before your medication runs out. If you cannot take your medications for any reasons, talk with your doctor. 4. Please bring all of your medication bottles and inhalers (or a list of all your medications/inhalers) with you to every visit. Potential barriers to meeting all of your care plan goals will continue to be addressed on an ongoing basis. Check your weight daily Self-management No Antony Omer MD Note: This is an individualized self-management goal for Naomi Bazzi: Please check your weight daily. Refer to the accompanying CHF treatment goal and call your doctor immediately for further instructions on how to respond to unexpected weight gain. 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
--- OUTSIDE RECORDS SUMMARY | 2019-03-28 08:52 | XMS REPORT | Summary of Care ---
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 Patient would like an injection today. Encounter Details Date Type Department Care Team Description 03/20/2019 Office Visit [facility] Antony Perry, Chronic pain of right knee (Primary Dx); - Rhianna SANDERS Cerebrovascular accident (CVA), unspecified mechanism ([facility]) [facility] [address] [facility] [address] [place], [place] [id number] [place] [address] [phone] Allergies Active Allergy Reactions Severity Noted Date Comments Morphine Rash 09/12/2018 Elixophyllin Cardiac Reaction 01/16/2012 Increase pulse rate documented as of this encounter (statuses as of 03/20/2019) Medications Medication Sig Dispensed Refills Start Date End Date Status PROCEDURE 1 Each by Apply 1 Each 0 02/13/2015 Active (MEDICATION externally route COMMUNICATION ORDER) DAILY. Patient needs new pair of braces/shoes for her club feet /arthrogryposis [place] 10/16" Inject 1 Device 100 Each 1 09/06/2015 Active 30G X 8 MM Does not beneath the skin apply Misc EVERY BEDTIME. ICD E11.9 Insulin dependent Spacer/Aero-Holding 1 Each by Does not 1 Each 0 10/19/2015 Active Chambers Does not apply route apply Device DIRECTED. Incontinence Supply 1 Act by Does not 100 Each 2 02/07/2018 Active Disposable (ATTENDS apply route BREATHABLE BRIEFS NEEDED (for XXL) Does not apply incontinence). MiscIndications: Incontinence of urine in female PROAIR HFA 108 (90 inhale 1 puff by 8.5 g 1 03/10/2018 Active Base) MCG/ACT mouth every 6 hours Inhalation Aero Soln if needed for shortness of breath or wheezing sennosides-docusate Take 2 Tabs by mouth 60 Tab 5 04/10/2018 Active sodium (SENOKOT-S, DAILY. SENNA S) 8.6-50 MG Oral Tab Blood Glucose 1 Device by Does not 1 Device 0 04/11/2018 Active Monitor Software apply route Does not apply DIRECTED. E11.9 last Device OV 04/10/18 Brand: Insurance preferred Lancets Does not 1 Each by Does not 100 Each 3 04/11/2018 Active apply Misc apply route DAILY. Dx:E11.9 last OV 04/10/18 Nystatin [id number] by Apply externally 0 Active UNIT/GM Apply route. externally Powder Incontinence Supply 1 Each by Does not 96 Each 5 05/07/2018 Active Disposable apply route FOUR (CERTAINTY TIMES DAILY. T4535 LINERS/WOMEN) Does not apply Misc triamcinolone Apply 2 x a day to 45 g 0 05/08/2018 Active (KENALOG,ARISTOCORT) the leg til healed 0.1 % Apply externally Cream LANTUS SOLOSTAR 100 inject 15 unit 15 mL 0 05/21/2018 Active UNIT/ML Subcutaneous subcutaneously once Solution daily at bedtime Pen-injector lisinopril take 1 tablet by 90 Tab 3 08/22/2018 Active (PRINIVIL, ZESTRIL) mouth once daily 5 MG Oral Tab carvedilol (COREG) take 1 tablet by 180 Tab 3 08/22/2018 Active 6.25 MG Oral Tab mouth twice a day montelukast take 1 tablet by 90 Tab 3 08/22/2018 Active (SINGULAIR) 10 MG mouth once daily Oral Tab albuterol (ACCUNEB) 3 mL by 360 Ampule 0 09/09/2018 Active 1.25 MG/3ML Inhalation-SVN route Inhalation Nebu Soln EVERY FOUR HOURS NEEDED (SOB). ergocalciferol take 1 capsule by 12 Cap 3 09/24/2018 Active (DRISDOL, mouth EVERY 7 DAYS CALCIFEROL, VITAMIN D) 86146 units Oral Cap atorvastatin take 1 tablet by 90 Tab 1 10/20/2018 Active (LIPITOR) 10 MG Oral mouth once daily Tab Glucose Blood In 1 Each by In Vitro 100 Each 3 11/05/2018 Active Vitro DISK route DAILY. E11.9 last OV 07/29/18 SPIRIVA HANDIHALER inhale the contents 30 Cap 5 12/15/2018 Active 18 MCG Inhalation of one capsule in Cap the handihaler once daily Ferrous Sulfate 325 take 1 tablet by 30 Tab 2 12/30/2018 Active (65 Fe) MG Oral Tab mouth once daily EC tizanidine take 2 tablets by 180 Tab 1 02/05/2019 Active (ZANAFLEX) 4 MG Oral mouth three times a Tab day metoprolol take 1 tablet by 270 Tab 1 02/05/2019 Active (LOPRESSOR) 25 MG mouth three times a Oral Tab day glipiZIDE take 1 tablet by 90 Tab 1 02/05/2019 Active (GLUCOTROL) 10 MG mouth every morning Oral TabIndications: Type 2 diabetes mellitus without complication, with long-term current use of insulin (HCC) pantoprazole take 1 tablet by 90 Tab 1 02/05/2019 Active (PROTONIX) 40 MG mouth once daily Oral Tab EC duloxetine take 1 capsule by 90 Cap 1 02/05/2019 Active (CYMBALTA) 60 MG mouth once daily Oral CAPSULE ENTERIC COATED PARTICLES glipiZIDE Take 1 Tab by mouth 90 Tab 1 02/16/2019 Active (GLUCOTROL) 5 MG DAILY. Oral Tab OXYcodone-acetaminop Take 1 Tab by mouth 180 Tab 0 03/18/2019 Active hen (PERCOCET) EVERY FOUR HOURS 10-325 MG Oral Tab NEEDED (pain). Max Daily Amount: 6 Tabs. Please fill 09/25/18 torsemide (DEMADEX) take 1 tablet by 90 Tab 0 03/17/2019 Active 20 MG Oral Tab mouth once daily Hospital, Clinic, or Other Ordered Dose Route Frequency Start Date End Date Status Facility Administered Medication methylPREDNISolone acetate 80 mg IM X1 03/20/2019 03/20/2019 Ended (DEPO-MEDROL) injection 80 MG/MLIndications: Chronic pain of right knee documented as of this encounter (statuses as of 03/20/2019) Active Problems Problem Noted Date Acute on chronic systolic congestive heart failure 06/17/2015 Insomnia 02/14/2014 Osteoporosis 07/21/2013 Arthrogryposis 12/27/2012 CVA (cerebral vascular accident) Overview: right thalamic. 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 COPD (chronic obstructive pulmonary disease) Depression BMI 40.0-44.9, adult Hypertension Cardiomyopathy Overview: 15% Diabetic retinopathy documented as of this encounter (statuses as of 03/20/2019) Resolved Problems Problem Noted Date Resolved Date Tobacco user 09/13/2014 Type 2 diabetes mellitus without complication 04/13/2018 documented as of this encounter (statuses as of 03/20/2019) Immunizations Name Administration Dates Next Due Influenza [...] Sign Reading Time Taken Comments Blood Pressure 137/76 03/20/2019 10:57 AM EDT Pulse 88 03/20/2019 10:57 AM EDT Temperature - - Respiratory Rate - - Oxygen Saturation - - Inhaled Oxygen Concentration - - Weight 93 kg (205 lb) 03/20/2019 10:57 AM EDT Height 151.8 cm (4' 11.75") 03/20/2019 10:57 AM EDT Body Mass Index 40.37 03/20/2019 10:57 AM EDT documented in this encounter Progress Notes Antony Perry MD - 03/20/2019 10:45 AM EDT Name: Naomi Bazzi : 1950 Date of Service: 03/20/2019 Chief Complaint Patient presents with Follow Up Right knee pain. Patient would like an injection today. History of Present Illness: Naomi Bazzi is a 68-y.o. female. The above is noted. It is in today for evaluation and follow-up of right knee discomfort. Patient was last seen in the office on 09/12/2018 patient complained ofright knee discomfort. Patient has known history of degenerative arthritis involving her right knee. Spondee favorably to steroid injection which lasts approximately 6 months. Physical Examination: Well-developed well-nourished female in minimal discomfort at rest. BP 137/76 | Pulse 88 | Ht 4' 11.75" (1.518 m) | Wt 205 lb (93 kg) | BMI 40.37 kg/m Is essentially wheelchair-bound. The right knee range of motion reveals full extension, flexion is to 120 degrees after which she has discomfort no varus or valgus instability. Impression: 1. Cerebrovascular accident (CVA), unspecified mechanism (HCC) dJD right knee. Plan: Conditions the right knee medial portal was prepped with chlorhexidine and afterwards via 22-gauge needle 3 cc of Marcaine and 80 mg of Depo-Medrol were injected into the patient's right knee the patient tolerated the procedure well after which a Band-Aid was used to cover the puncture site. Plan is to follow-up with the patient in approximately 6 months or as needed of her questions and her caregivers questions were answered to her full satisfaction. All questions were answered. There are no Patient Instructions on file for this visit. Author: Antony Perry MD 03/20/2019 11:03 documented in this encounter Plan of Treatment Date Type Specialty Care Team Description 06/22/2019 Office Visit Family Practice Antony Omer MD [facility] [place] [address] [phone] 09/22/2019 Office Visit Orthopedics Antony Perry MD [address] [place] [address] [phone] Name Type Priority Associated Diagnoses Order Schedule XR KNEE 4 OR MORE Imaging Routine Chronic pain of right Expected: 2018, VIEWS RIGHT knee Expires: 03/19/2020 (STANDARD) INJECTION, JOINT Procedures Routine Chronic pain of right Ordered: 2018 SHOUDLER HIP KNEE OR knee [facility] Health Maintenance Due Date Last Done Comments MEDICARE ANNUAL WELLNESS 1950 VISIT [facility] IMMUNIZATION SERIES 1998 (1 of 2) MAMMOGRAM (SCREENING) 12/15/2015 12/14/2014, 07/21/2013 FOOT EXAM 10/22/2017 10/22/2016, 10/22/2016 DEPRESSION SCREENING 03/06/2018 03/06/2017 HEMOGLOBIN A1C 04/09/2019 01/07/2019, 06/13/2018, 03/30/2018, Additional history exists FALL RISK ASSESSMENT 05/08/2019 05/08/2018, 05/08/2018 Diabetic Eye Exam 09/02/2019 09/01/2018, 04/21/2018, 04/21/2018, Additional history exists LIPID DISORDER SCREENING 10/21/2019 10/20/2018, 06/13/2018, 09/27/2017, Additional history exists OSTEOPOROSIS SCREENING 07/21/2023 07/21/2013 COLONOSCOPY SCREENING 05/03/2025 05/03/2015, 05/03/2015, 01/16/2012 (Declined) PNEUMOCOCCAL 65+YRS Completed 04/25/2016, 06/22/2013 INFLUENZA VACCINE Completed 02/16/2019, 03/30/2018, 03/06/2017, Additional history exists HPV IMMUNIZATION SERIES Aged Out No longer eligible based on patient's age to complete this topic MENINGOCOCCAL VACCINE IMM Aged Out No longer eligible based on patient's age to complete this topic documented as of this encounter Goals Goal Patient Goal Associated Recent Patient-Stated? Author Type Problems Progress Blood Pressure Blood Pressure 137/76 No Kan, < 140/90 (03/20/2019 MD Antony 10:57 AM EDT) Note: This is an individualized treatment (blood pressure) goal for Naomi Luciamelanie: Displayed above (on the left) is your goal for blood pressure control. Your most recent blood pressure is also shown above, on the right. You should try to achieve blood pressures that are lower than your goal listed above (on the left). Weight increase vs. 18 mo min CHF 23 (03/20/2019 10:57 AM EDT) Antony Escamilla MD (lbs) < 5 [...] Disease. 7. Prevention of Kidney Disease. An ADAILD inhibitor protects the kidneys. Diabetes < 7.0 Diabetes Type 2 diabetes 7.6 (01/07/2019 1:12 No Antony Omer mellitus without PM EDT) complication Note: Diabetes [...] my blood sugar results (including dextrose sticks). [facility]lenee is safe and secure way for you [...] < 7.0 Diabetes 7.6 (01/07/2019 1:12 PM Antony Escamilla MD EDT) Note: This is an individualized treatment (diabetes control, HgbA1C) goal for Naomi Luciamelanie: Displayed above is your progress towards your [...] symptoms of depression. Keep immunizations current Lifestyle Antony Escamilla MD Note: This is an individualized lifestyle goal for Naomi Bazzi: Please be sure to keep up-to-date on recommended immunizations. For example, this would include a yearly influenza vaccine. Immunization status can be seen by looking at the Health Maintenance sections of your [facility], Plan of Care, and any After Visit Summaries. Consume a yf-lvfwc-hdbg diet Lifestyle No Antony Omer MD Note: [...] filedocumented in this encounter Visit Diagnoses Diagnosis Chronic pain of right knee - Primary Cerebrovascular accident (CVA), unspecified mechanism (HCC) documented in this encounter Administered Medications Medication Order MAR Action Action Date Dose Rate Site methylPREDNISolone acetate Given 03/20/2019 11:16 AM 80 mg Knee - Right (DEPO-MEDROL) injection 80 EDT MG/ML 80 mg, Intramuscular, X1, 1 dose, First dose on Sat03/20/19 at 1220 documented in this encounter Insurance Payer Benefit Plan / Subscriber ID Effective Dates Phone Address Type Group [place] xxxxxxxx 2018-Present [place] MEDIC[place] MEDICARE PART A xxxxxxxxxxx 2000-Present Medicare & B Guarantor Name Account Type Relation to Date of Phone Billing Patient Address Naomi Bazzi Personal/Family [address] (Home) [place], [place] [phone] (Work) documented as of this encounter
[2019-03-28] MEDS ORDERED: Dextrose 50% VIAL 50 ml IV PRN (09:22)
[2019-03-28] MEDS ORDERED: Insulin REGULAR(*) 1 UNITS UNIT IV PUSH ONE (09:22)
[2019-03-28 09:49] LABS: Urine Appearance Cloudy; Urine Bacteria Absent (Absent); Urine Bilirubin Negative (Negative); Urine Blood 1+ (Negative); Urine Color Yellow; Urine Glucose 2+(150 mg/dL) (Negative); Urine Ketones Negative (Negative); Urine Nitrite Negative (Negative); Urine Protein Negative (Negative); Urine Red Blood Cell 1+(3-5/hpf) (Absent); Urine Specific Gravity 1.012 (1.010-1.030); Urine Squamous Epithelial Cell Present (Absent); Urine Urobilinogen Negative (Negative); Urine White Blood Cell Trace(0-5/hpf) (Absent)
[2019-03-28] MEDS ORDERED: oxyCODONE/Acetamin 5/325 MG* TAB PO ONE (12:38)
[2019-03-28 13:17] VITALS: BP 181/99
== END 2019-03-28 12:41 | disposition home or self-care (01) ==
LOC: ED 06:16
DX: M25.551 Pain in right hip (principal); M79.661 Pain in right lower leg; M79.671 Pain in right foot; E87.5 Hyperkalemia; E11.9 Type 2 diabetes mellitus without complications; Z79.4 Long term (current) use of insulin; I10 Essential (primary) hypertension; Z79.84 Long term (current) use of oral hypoglycemic drugs; J45.909 Unspecified asthma, uncomplicated; Z99.81 Dependence on supplemental oxygen; K21.9 Gastro-esophageal reflux disease without esophagitis; F41.9 Anxiety disorder, unspecified; Z95.810 Presence of automatic (implantable) cardiac defibrillator; Z91.041 Radiographic dye allergy status; Z88.8 Allergy status to other drugs, medicaments and biological substances; Z91.048 Other nonmedicinal substance allergy status; Z87.891 Personal history of nicotine dependence
CPT/HCPCS: 36415; 80053; 81003; 81015; 84132; 85025; 86140; 87086; 96361; 96374; 96375; 99283; A9270-GY

== ENCOUNTER 2022-02-21 00:01 | Inpatient (IN) ==
[2022-02-21 01:42] LABS: Anion Gap 10 mmol/L (2-11); Blood Urea Nitrogen 74 mg/dL (6-24); CO2 Carbon Dioxide 17 mmol/L (22-32); Chloride 101 mmol/L (101-111); Glucose 284 mg/dL (70-100); Sodium 128 mmol/L (135-145); eGFR CKD-EPI 21.1 (>60)
[2022-02-21] MEDS ORDERED: oxyCODONE/Acetamin 10/325(NF) TAB PO ONE (03:30)
[2022-02-21] MEDS ORDERED: oxyCODONE/Acetamin 5/325 mg TAB PO ONE ×2 (04:00→09:39)
[2022-02-21 04:40] LABS: ABS Basophils 0.1 10^3/ul (0-0.2); ABS Eosinophils 0.2 10^3/ul (0-0.6); ABS Lymphocytes 1.4 10^3/ul (1.0-4.8); ABS Monocytes 0.4 10^3/ul (0-0.8); ABS Neutrophils 4.2 10^3/ul (1.5-7.7); Eosinophil % 2.8 %; Hematocrit 36 % (35-47); Hemoglobin 11.6 g/dL (12.0-16.0); Lymphocyte % 22.2 %; Mean Corpuscular HGB Conc 32 g/dL (31-36); Mean Corpuscular Hemoglobin 29 pg (27-31); Mean Corpuscular Volume 90 fL (80-97); Mean Platelet Volume 8.1 fL (7.4-10.4); Nucleated Red Blood Cells % 0.1; Platelet Count 199 10^3/uL (150-450); Red Blood Count 4.02 10^6 /uL (3.70-4.87); Red Cell Distribution Width 14 % (10-15); White Blood Count 6.1 10^3/uL (3.5-10.8)
[2022-02-21 05:26] LABS: Potassium, Whole Blood 5.1 mmol/L (3.4-4.5)
[2022-02-21 06:00] LABS: Urine Appearance Clear; Urine Bilirubin Negative (Negative); Urine Blood 1+ (Small) (Negative); Urine Color Yellow; Urine Glucose Negative (Negative); Urine Ketones Negative (Negative); Urine Nitrite Positive (Negative); Urine Protein Negative (Negative); Urine Urobilinogen 0.2 (Negative) (Negative)
[2022-02-21 06:27] LABS: Urine Bacteria 1+ (Absent); Urine Red Blood Cell Trace(0-2/hpf) (Absent); Urine Squamous Epithelial Cell Present (Absent); Urine White Blood Cell 3+(>20/hpf) (Absent)
[2022-02-21] MEDS ORDERED: ceFAZolin 1 GM ADVAN 1 GM in NS 0.9% 50 ML 50 ML IVPB ONE (06:40)
[2022-02-21 10:45] LABS: Magnesium 1.9 mg/dL (1.9-2.7)
[2022-02-21 12:30] LABS: Calcium 9.1 mg/dL (8.6-10.3); eGFR CKD-EPI 28.6 (>60)
[2022-02-21] MEDS ORDERED: Albuterol HFA INHALER 8 gm MDI INH PRN (12:37)
[2022-02-21] MEDS: cefTRIAXone 1 gm/50 mL D5W 1 GM/50 ML BAG IV SCH (13:47)
[2022-02-21] MEDS: Enoxaparin 30 MG/0.3 ML SYR SUBCUT SCH (14:16)
[2022-02-21 15:20] LABS: Calcium 9.5 mg/dL (8.6-10.3); eGFR CKD-EPI 30.2 (>60)
[2022-02-21 15:32] LABS: Potassium 5.6 mmol/L (3.5-5.0)
[2022-02-21] MEDS: oxyCODONE/Acetamin 5/325 mg TAB PO PRN (17:15)
[2022-02-21] MEDS ORDERED: Dextrose 50% Syringe 50 ml 25 GM/50 ML SYRINGE IV PUSH PRN (18:45)
[2022-02-21 19:48] LABS: C Reactive Protein 17.41 mg/L (<8.01)
[2022-02-21] MEDS: SODIUM ZIRCONIUM CYCLOSILICATE 10 GM PACKET PO ONE ×2 (22:08→23:41)
[2022-02-21] MEDS: Insulin GLARGINE 100 un/ml 10 ml VIAL SUBCUT SCH (22:09)
[2022-02-22 05:59] LABS: ABS Basophils 0.1 10^3/ul (0-0.2); ABS Eosinophils 0.2 10^3/ul (0-0.6); ABS Lymphocytes 1.2 10^3/ul (1.0-4.8); ABS Monocytes 0.6 10^3/ul (0-0.8); ABS Neutrophils 5.2 10^3/ul (1.5-7.7); Hematocrit 38 % (35-47); Hemoglobin 12.3 g/dL (12.0-16.0); Lymphocyte % 16.4 %; Mean Corpuscular HGB Conc 33 g/dL (31-36); Mean Corpuscular Hemoglobin 29 pg (27-31); Mean Corpuscular Volume 90 fL (80-97); Mean Platelet Volume 8.3 fL (7.4-10.4); Platelet Count 210 10^3/uL (150-450); Red Blood Count 4.23 10^6 /uL (3.70-4.87); Red Cell Distribution Width 14 % (10-15); White Blood Count 7.2 10^3/uL (3.5-10.8)
[2022-02-22 06:00] LABS: Eosinophil % 3.1 %; Nucleated Red Blood Cells % 0.3
[2022-02-22 06:09] LABS: Calcium 9.7 mg/dL (8.6-10.3); Potassium 4.9 mmol/L (3.5-5.0)
[2022-02-22] MEDS: DULoxetine DR 60 mg CAP PO SCH (08:07)
[2022-02-22] MEDS: SPIRIVA Respimat (tiotropium) 2.5 mcg/inh Inhaler INH SCH (09:20)
[2022-02-22] MEDS: oxyCODONE/Acetamin 5/325 mg TAB PO PRN (11:13)
[2022-02-22] MEDS: Enoxaparin 30 MG/0.3 ML SYR SUBCUT SCH (12:19)
[2022-02-22] MEDS: cefTRIAXone 1 gm/50 mL D5W 1 GM/50 ML BAG IV SCH (12:34)
[2022-02-22] MEDS: Insulin GLARGINE 100 un/ml 10 ml VIAL SUBCUT SCH (22:49)
[2022-02-23 06:47] LABS: ABS Eosinophils 0.2 10^3/ul (0-0.6); ABS Lymphocytes 1.1 10^3/ul (1.0-4.8); ABS Monocytes 0.4 10^3/ul (0-0.8); ABS Neutrophils 4.7 10^3/ul (1.5-7.7); Eosinophil % 2.8 %; Hematocrit 35 % (35-47); Hemoglobin 11.7 g/dL (12.0-16.0); Lymphocyte % 17.6 %; Mean Corpuscular HGB Conc 33 g/dL (31-36); Mean Corpuscular Hemoglobin 29 pg (27-31); Mean Corpuscular Volume 89 fL (80-97); Mean Platelet Volume 8.4 fL (7.4-10.4); Platelet Count 186 10^3/uL (150-450); Red Blood Count 3.98 10^6 /uL (3.70-4.87); Red Cell Distribution Width 15 % (10-15); White Blood Count 6.5 10^3/uL (3.5-10.8)
[2022-02-23 07:25] LABS: Calcium 9.5 mg/dL (8.6-10.3); eGFR CKD-EPI 41.1 (>60)
[2022-02-23 07:26] LABS: Potassium 5.6 mmol/L (3.5-5.0)
[2022-02-23] MEDS ORDERED: SODIUM ZIRCONIUM CYCLOSILICATE 10 GM PACKET PO ONE (07:27)
[2022-02-23] MEDS: SPIRIVA Respimat (tiotropium) 2.5 mcg/inh Inhaler INH SCH (08:08)
[2022-02-23] MEDS: DULoxetine DR 60 mg CAP PO SCH (09:44)
[2022-02-23] MEDS: oxyCODONE/Acetamin 5/325 mg TAB PO PRN (09:47)
[2022-02-23 12:43] LABS: Calcium 9.8 mg/dL (8.6-10.3); eGFR CKD-EPI 43.4 (>60)
[2022-02-23] MEDS: Enoxaparin 30 MG/0.3 ML SYR SUBCUT SCH (12:47)
[2022-02-23] MEDS: cefTRIAXone 1 gm/50 mL D5W 1 GM/50 ML BAG IV SCH (12:47)
[2022-02-23 13:00] LABS: Potassium 5.3 mmol/L (3.5-5.0)
[2022-02-23 16:28] VITALS: BP 147/102
== END 2022-02-23 18:50 | disposition home or self-care (01) | DRG 690 ==
LOC: ED 00:01 → EDHOLD 00:01 → MEDTELE 13:10 → SUATTDRO 02-23 11:00
PROVIDERS: ADMIT Internal Medicine; ATTEND Pediatrics

== ENCOUNTER 2023-05-22 11:58 | Inpatient (IN) ==
[2023-05-22 12:44] LABS: ABS Basophils 0.1 10^3/uL (0.0-0.1); ABS Eosinophils 0.1 10^3/uL (0.0-0.5); ABS Lymphocytes 0.5 10^3/uL (1.0-4.8); ABS Monocytes 0.6 10^3/uL (0.0-0.9); ABS Neutrophils 12.5 10^3/uL (1.5-7.6); Eosinophil % 0.7 %; Hematocrit 30.3 % (35-45); Lymphocyte % 3.9 %; Mean Corpuscular Hemoglobin 29.8 pg (27-33); Mean Corpuscular Hgb Conc 32.9 g/dL (31-36); Mean Corpuscular Volume 90.6 fL (80-97); Mean Platelet Volume 8.2 fL (7.5-11.2); Platelet Count 239 10^3/uL (150-450); Red Blood Count 3.34 10^6/uL (3.63-4.92); Red Cell Distribution Width 14.7 % (12-17); White Blood Count 13.7 10^3/uL (3.8-11.8)
[2023-05-22] MEDS ORDERED: NS 0.9% 1000 ml BAG 1,000 ML IV ONE (13:32)
[2023-05-22 13:44] LABS: C Reactive Protein 68.36 mg/L (<8.01); Magnesium 1.6 mg/dL (1.9-2.7)
[2023-05-22] MEDS ORDERED: oxyCODONE/Acetamin 10/325(NF) TAB PO PRN (13:55)
[2023-05-22] MEDS ORDERED: Magnesium Sulfate 2 gm BAG 2 GM/50 ML BAG IVPB ONE (13:55)
[2023-05-22 14:29] LABS: High Sens Troponin Baseline 21 pg/mL (<15)
[2023-05-22 14:41] LABS: ALT 8 U/L (7-52); Albumin 3.9 g/dL (3.2-5.2); Albumin/Globulin Ratio 1.4 (1-3); Alkaline Phosphatase 150 U/L (35-149); Anion Gap 13 mmol/L (2-16); Blood Urea Nitrogen 40 mg/dL (6-24); CO2 Carbon Dioxide 22 mmol/L (22-32); Calcium 9.2 mg/dL (8.6-10.3); Chloride 98 mmol/L (101-111); Creatinine, Serum 1.26 mg/dL (0.51-0.95); Globulin 2.7 g/dL (2-4); Glucose 245 mg/dL (70-100); Sodium 133 mmol/L (135-145); Total Bilirubin 0.9 mg/dL (0.2-1.0); Total Protein 6.6 g/dL (6.4-8.9); eGFR CKD-EPI 44.8 (>60)
[2023-05-22 14:50] LABS: INR 1.1 (0.83-1.13)
[2023-05-22 15:13] LABS: High Sensitivity Troponin 1 Hr 16 pg/mL (<15)
[2023-05-22] MEDS: oxyCODONE/Acetamin 5/325 mg TAB PO PRN ×2 (18:17→23:20)
[2023-05-22] MEDS ORDERED: Digoxin IV 0.5 MG/2 ML AMP (0.25 MG/ML) IV SLOW PU ONE (19:24)
[2023-05-22] MEDS ORDERED: Metoprolol Tartrate 5 mg VIAL 5 ml VIAL (1 mg/ml) IV ONE (19:53)
[2023-05-22] MEDS ORDERED: Dextrose 50% Syringe 50 ml 25 GM/50 ML SYRINGE IV PUSH PRN (21:18)
[2023-05-22] MEDS ORDERED: Insulin GLARGINE 100 un/ml 10 ml VIAL SUBCUT SCH (22:00)
[2023-05-22] MEDS: Insulin GLARGINE 100 un/ml 10 ml VIAL SUBCUT SCH (22:52)
[2023-05-22] MEDS: Albuterol 2.5mg/3 ml (0.083%) NEB.SOLN INH PRN (23:31)
[2023-05-23 00:08] LABS: Phosphorus 2.5 mg/dL (2.5-5.0); Potassium Redraw 3.8 mmol/L (3.5-5.0)
[2023-05-23] MEDS: oxyCODONE/Acetamin 5/325 mg TAB PO PRN ×3 (03:22→17:47)
[2023-05-23 05:54] LABS: ABS Basophils 0.1 10^3/uL (0.0-0.1); ABS Eosinophils 0.1 10^3/uL (0.0-0.5); ABS Lymphocytes 0.6 10^3/uL (1.0-4.8); ABS Monocytes 0.7 10^3/uL (0.0-0.9); ABS Neutrophils 9.8 10^3/uL (1.5-7.6); Hematocrit 28.3 % (35-45); Hemoglobin 9.4 g/dL (11.5-14.3); Mean Corpuscular Hgb Conc 33.3 g/dL (31-36); Mean Corpuscular Volume 90.1 fL (80-97); Mean Platelet Volume 8.2 fL (7.5-11.2); Platelet Count 245 10^3/uL (150-450); Red Blood Count 3.14 10^6/uL (3.63-4.92); Red Cell Distribution Width 14.5 % (12-17); White Blood Count 11.2 10^3/uL (3.8-11.8)
[2023-05-23 06:12] LABS: Albumin 3.7 g/dL (3.2-5.2); Albumin/Globulin Ratio 1.5 (1-3); Calcium 9.1 mg/dL (8.6-10.3); Creatinine, Serum 1.1 mg/dL (0.51-0.95); Globulin 2.5 g/dL (2-4); Magnesium 1.9 mg/dL (1.9-2.7); Potassium 3.8 mmol/L (3.5-5.0); Total Protein 6.2 g/dL (6.4-8.9); eGFR CKD-EPI 52.7 (>60)
[2023-05-23] MEDS: SPIRIVA Respimat (tiotropium) 2.5 mcg/inh Inhaler INH SCH (07:50)
[2023-05-23] MEDS ORDERED: Digoxin IV 0.5 MG/2 ML AMP (0.25 MG/ML) IV SLOW PU ONE (09:00)
[2023-05-23] MEDS: DULoxetine DR 60 mg CAP PO SCH (09:54)
[2023-05-23] MEDS: Albuterol 2.5mg/3 ml (0.083%) NEB.SOLN INH PRN ×2 (17:50→22:51)
[2023-05-23] MEDS: Insulin GLARGINE 100 un/ml 10 ml VIAL SUBCUT SCH (22:04)
[2023-05-24] MEDS: oxyCODONE/Acetamin 5/325 mg TAB PO PRN ×3 (00:15→20:30)
[2023-05-24] MEDS ORDERED: NS 0.9% 1000 ml BAG 1,000 ML IV ONE (07:00)
[2023-05-24] MEDS: SPIRIVA Respimat (tiotropium) 2.5 mcg/inh Inhaler INH SCH (07:41)
[2023-05-24] MEDS ORDERED: Midazolam 5 mg/5 ml VIAL 1 mg/ml 5 ml VIAL (5 mg) ONE (08:18)
[2023-05-24] MEDS ORDERED: fentaNYL 100 mcg/2 ml 50 MCG/ML VIAL ONE (08:18)
[2023-05-24] MEDS ORDERED: Flumazenil 0.5 mg/5 ml 0.1 MG/ML 5 ml VIAL ONE (08:19)
[2023-05-24] MEDS ORDERED: Naloxone 0.4 mg VIAL 0.4 mg/ml 1 ml VIAL ONE (08:19)
[2023-05-24] MEDS ORDERED: fentaNYL 100 mcg/2 ml 50 MCG/ML VIAL IV SLOW PU ONE (13:03)
[2023-05-24] MEDS ORDERED: Midazolam 10 mg/10 ml VIAL 1 mg/ml 10 ml VIAL (10 mg) IV SLOW PU ONE (13:03)
[2023-05-24] MEDS: DULoxetine DR 60 mg CAP PO SCH (15:01)
[2023-05-24] MEDS ORDERED: Furosemide 40 mg/4 ml IV VIAL IV ONE (16:45)
[2023-05-24 17:15] LABS: Hematocrit 28.6 % (35-45); Hemoglobin 9.3 g/dL (11.5-14.3); Mean Corpuscular Hemoglobin 29.1 pg (27-33); Mean Corpuscular Hgb Conc 32.4 g/dL (31-36); Mean Corpuscular Volume 89.9 fL (80-97); Mean Platelet Volume 7.4 fL (7.5-11.2); Platelet Count 264 10^3/uL (150-450); Red Blood Count 3.19 10^6/uL (3.63-4.92); Red Cell Distribution Width 14.8 % (12-17); White Blood Count 17.4 10^3/uL (3.8-11.8)
[2023-05-24 17:34] LABS: Calcium 9.2 mg/dL (8.6-10.3); Creatinine, Serum 1.07 mg/dL (0.51-0.95); Potassium 3.9 mmol/L (3.5-5.0); eGFR CKD-EPI 54.5 (>60)
[2023-05-24] MEDS: Insulin GLARGINE 100 un/ml 10 ml VIAL SUBCUT SCH (20:34)
[2023-05-25] MEDS: Albuterol 2.5mg/3 ml (0.083%) NEB.SOLN INH PRN ×2 (00:12→12:45)
[2023-05-25] MEDS: oxyCODONE/Acetamin 5/325 mg TAB PO PRN ×4 (00:20→22:05)
[2023-05-25 05:45] LABS: Hematocrit 29.5 % (35-45); Hemoglobin 9.3 g/dL (11.5-14.3); Mean Corpuscular Hemoglobin 28.9 pg (27-33); Mean Corpuscular Hgb Conc 31.6 g/dL (31-36); Mean Corpuscular Volume 91.5 fL (80-97); Mean Platelet Volume 7.4 fL (7.5-11.2); Platelet Count 275 10^3/uL (150-450); Red Blood Count 3.23 10^6/uL (3.63-4.92); Red Cell Distribution Width 14.4 % (12-17)
[2023-05-25 06:00] LABS: Calcium 9.3 mg/dL (8.6-10.3); Creatinine, Serum 1.15 mg/dL (0.51-0.95); Potassium 3.6 mmol/L (3.5-5.0)
[2023-05-25] MEDS: SPIRIVA Respimat (tiotropium) 2.5 mcg/inh Inhaler INH SCH (07:56)
[2023-05-25] MEDS: DULoxetine DR 60 mg CAP PO SCH (08:59)
[2023-05-25] MEDS ORDERED: Influenza vaccine *QUAD* *2023-24* 0.5 ML SYRINGE IM ONE (09:00)
[2023-05-25] MEDS ORDERED: Furosemide 40 mg/4 ml IV VIAL IV SCH (09:00)
[2023-05-25 12:24] LABS: C Reactive Protein 212.63 mg/L (<8.01); HDL Cholesterol 29.7 mg/dL
[2023-05-25 12:45] LABS: Ferritin 102.8 ng/mL (11-307)
[2023-05-25 15:35] LABS: TSH Ultra Thyroid Stim Horm 1.47 mcIU/mL (0.34-5.60)
[2023-05-25 15:38] LABS: Free T4 1.14 ng/dL (0.61-1.12)
[2023-05-25] MEDS: Ferric Gluconate IV 250 MG in NS 0.9% 250 ml 200 ML IVPB SCH (16:08)
[2023-05-25] MEDS: Insulin GLARGINE 100 un/ml 10 ml VIAL SUBCUT SCH (22:04)
[2023-05-26] MEDS: Albuterol 2.5mg/3 ml (0.083%) NEB.SOLN INH PRN (01:33)
[2023-05-26 03:03] LABS: Urine Appearance Cloudy; Urine Bilirubin Negative (Negative); Urine Blood Negative (Negative); Urine Color Yellow; Urine Glucose 3+(>=500 mg/dL) (Negative); Urine Ketones Negative (Negative); Urine Nitrite Positive (Negative); Urine Protein Negative (Negative); Urine Specific Gravity 1.013 (1.002-1.030); Urine Urobilinogen Negative (Negative)
[2023-05-26 03:38] LABS: Urine Bacteria 2+ (Absent); Urine Red Blood Cell Trace(0-2/hpf) (Absent); Urine Squamous Epithelial Cell Present (Absent); Urine White Blood Cell 3+(>20/hpf) (Absent)
[2023-05-26 06:30] LABS: ABS Lymphocytes 0.6 10^3/uL (1.0-4.8); ABS Monocytes 1.2 10^3/uL (0.0-0.9); Eosinophil % 0.1 %; Hematocrit 28.2 % (35-45); Hemoglobin 9.4 g/dL (11.5-14.3); Mean Corpuscular Hemoglobin 29.7 pg (27-33); Mean Corpuscular Hgb Conc 33.2 g/dL (31-36); Mean Corpuscular Volume 89.6 fL (80-97); Mean Platelet Volume 7.6 fL (7.5-11.2); Platelet Count 303 10^3/uL (150-450); Red Blood Count 3.15 10^6/uL (3.63-4.92); Red Cell Distribution Width 14.3 % (12-17); White Blood Count 19.9 10^3/uL (3.8-11.8)
[2023-05-26 06:58] LABS: Calcium 9.1 mg/dL (8.6-10.3); Creatinine, Serum 1.28 mg/dL (0.51-0.95); Magnesium 1.3 mg/dL (1.9-2.7); Potassium 3.4 mmol/L (3.5-5.0)
[2023-05-26] MEDS: SPIRIVA Respimat (tiotropium) 2.5 mcg/inh Inhaler INH SCH (09:05)
[2023-05-26] MEDS: DULoxetine DR 60 mg CAP PO SCH (09:22)
[2023-05-26] MEDS: Ferric Gluconate IV 250 MG in NS 0.9% 250 ml 200 ML IVPB SCH (09:48)
[2023-05-26] MEDS: KCL 20 MEQ/100 ML IVPREMIX 20 MEQ/100 ML BAG IV SCH ×2 (09:49→11:55)
[2023-05-26] MEDS ORDERED: Magnesium Sulf 4 GM/100 ML IV 4,000 MG/100 ML BAG IVPB ONE (10:00)
[2023-05-26] MEDS ORDERED: Furosemide 40 mg/4 ml IV VIAL IV ONE (12:31)
[2023-05-26] MEDS ORDERED: cefTRIAXone 1 gm/50 mL D5W 1 GM/50 ML BAG IV SCH (15:00)
[2023-05-26] MEDS: oxyCODONE/Acetamin 5/325 mg TAB PO PRN (21:28)
[2023-05-26] MEDS: Insulin GLARGINE 100 un/ml 10 ml VIAL SUBCUT SCH (21:29)
[2023-05-27 05:53] LABS: Hematocrit 27.6 % (35-45); Hemoglobin 8.8 g/dL (11.5-14.3); Mean Corpuscular Hemoglobin 28.7 pg (27-33); Mean Corpuscular Hgb Conc 31.7 g/dL (31-36); Mean Corpuscular Volume 90.4 fL (80-97); Mean Platelet Volume 7.5 fL (7.5-11.2); Platelet Count 320 10^3/uL (150-450); Red Blood Count 3.06 10^6/uL (3.63-4.92); Red Cell Distribution Width 14.9 % (12-17); White Blood Count 18.9 10^3/uL (3.8-11.8)
[2023-05-27 06:29] LABS: Calcium 9.1 mg/dL (8.6-10.3); Creatinine, Serum 1.68 mg/dL (0.51-0.95); Magnesium 2.4 mg/dL (1.9-2.7); Potassium 3.8 mmol/L (3.5-5.0); eGFR CKD-EPI 31.7 (>60)
[2023-05-27] MEDS: SPIRIVA Respimat (tiotropium) 2.5 mcg/inh Inhaler INH SCH (07:31)
[2023-05-27] MEDS: Ferric Gluconate IV 250 MG in NS 0.9% 250 ml 200 ML IVPB SCH (08:19)
[2023-05-27] MEDS: DULoxetine DR 60 mg CAP PO SCH (08:19)
[2023-05-27] MEDS ORDERED: Vancomycin per Pharmacy 1 EA NOTE FOLLOW UP SCH (11:00)
[2023-05-27] MEDS ORDERED: Zosyn per Pharmacy NOTE FOLLOW UP SCH (11:00)
[2023-05-27] MEDS ORDERED: ZOSYN 3.375 GM x ONE DOSE over 30 miuntes IV (13:00)
[2023-05-27] MEDS ORDERED: Vancomycin 1,500 MG in NS 0.9% 250 ml 250 ML IVPB ONE (13:00)
[2023-05-27] MEDS: ZOSYN 3.375 GM Q12H per EXTENDED INFUSION IV SCH (20:05)
[2023-05-27] MEDS: oxyCODONE/Acetamin 5/325 mg TAB PO PRN (20:53)
[2023-05-27] MEDS: Insulin GLARGINE 100 un/ml 10 ml VIAL SUBCUT SCH (20:53)
[2023-05-28] MEDS: Vancomycin 750 MG in NS 0.9% 250 ML IVPB SCH (05:31)
[2023-05-28 06:45] LABS: Calcium 8.6 mg/dL (8.6-10.3); Creatinine, Serum 1.96 mg/dL (0.51-0.95); Magnesium 2.1 mg/dL (1.9-2.7); Potassium 3.9 mmol/L (3.5-5.0); eGFR CKD-EPI 26.4 (>60)
[2023-05-28 07:26] LABS: ABS Basophils 0.1 10^3/uL (0.0-0.1); ABS Eosinophils 0.3 10^3/uL (0.0-0.5); ABS Lymphocytes 0.8 10^3/uL (1.0-4.8); ABS Monocytes 0.8 10^3/uL (0.0-0.9); ABS Neutrophils 12.8 10^3/uL (1.5-7.6); Eosinophil % 1.7 %; Hematocrit 26.4 % (35-45); Hemoglobin 8.4 g/dL (11.5-14.3); Lymphocyte % 5.3 %; Mean Corpuscular Volume 90.6 fL (80-97); Mean Platelet Volume 7.6 fL (7.5-11.2); Platelet Count 331 10^3/uL (150-450); Red Blood Count 2.91 10^6/uL (3.63-4.92); Red Cell Distribution Width 14.9 % (12-17); White Blood Count 14.7 10^3/uL (3.8-11.8)
[2023-05-28] MEDS: ZOSYN 3.375 GM Q12H per EXTENDED INFUSION IV SCH ×3 (08:00→21:11)
[2023-05-28] MEDS: DULoxetine DR 60 mg CAP PO SCH (10:34)
[2023-05-28] MEDS: SPIRIVA Respimat (tiotropium) 2.5 mcg/inh Inhaler INH SCH (10:38)
[2023-05-28] MEDS: Ferric Gluconate IV 250 MG in NS 0.9% 250 ml 200 ML IVPB SCH (13:43)
[2023-05-28] MEDS: Albuterol 2.5mg/3 ml (0.083%) NEB.SOLN INH PRN (15:44)
[2023-05-28] MEDS: Insulin GLARGINE 100 un/ml 10 ml VIAL SUBCUT SCH (21:10)
[2023-05-29] MEDS: Vancomycin 750 MG in NS 0.9% 250 ML IVPB SCH (06:02)
[2023-05-29] MEDS: SPIRIVA Respimat (tiotropium) 2.5 mcg/inh Inhaler INH SCH (07:03)
[2023-05-29 07:58] LABS: Hematocrit 27.3 % (35-45); Mean Corpuscular Hemoglobin 29.4 pg (27-33); Mean Corpuscular Volume 89.1 fL (80-97); Mean Platelet Volume 7.1 fL (7.5-11.2); Platelet Count 379 10^3/uL (150-450); Red Blood Count 3.06 10^6/uL (3.63-4.92); Red Cell Distribution Width 14.6 % (12-17); White Blood Count 10.6 10^3/uL (3.8-11.8)
[2023-05-29] MEDS: ZOSYN 3.375 GM Q12H per EXTENDED INFUSION IV SCH ×2 (08:14→20:39)
[2023-05-29] MEDS: DULoxetine DR 60 mg CAP PO SCH (08:22)
[2023-05-29 10:46] LABS: Calcium 8.9 mg/dL (8.6-10.3); Creatinine, Serum 1.62 mg/dL (0.51-0.95); Potassium 4.1 mmol/L (3.5-5.0); eGFR CKD-EPI 33.1 (>60)
[2023-05-29] MEDS: Insulin GLARGINE 100 un/ml 10 ml VIAL SUBCUT SCH (20:38)
[2023-05-30] MEDS: oxyCODONE/Acetamin 5/325 mg TAB PO PRN ×3 (00:54→22:26)
[2023-05-30] MEDS ORDERED: Vancomycin Trough Check NOTE FOLLOW UP ONE ×2 (05:30→07:00)
[2023-05-30 05:55] LABS: Hematocrit 28.1 % (35-45); Hemoglobin 9.2 g/dL (11.5-14.3); Mean Corpuscular Hemoglobin 29.6 pg (27-33); Mean Corpuscular Hgb Conc 32.7 g/dL (31-36); Mean Corpuscular Volume 90.4 fL (80-97); Mean Platelet Volume 6.9 fL (7.5-11.2); Platelet Count 420 10^3/uL (150-450); Red Blood Count 3.11 10^6/uL (3.63-4.92); Red Cell Distribution Width 14.7 % (12-17); White Blood Count 10.5 10^3/uL (3.8-11.8)
[2023-05-30 06:14] LABS: Calcium 9.1 mg/dL (8.6-10.3); Creatinine, Serum 1.28 mg/dL (0.51-0.95); Creatinine, Serum 1.31 mg/dL (0.51-0.95); Potassium 4.2 mmol/L (3.5-5.0); eGFR CKD-EPI 42.8 (>60)
[2023-05-30 06:36] LABS: Vancomycin Trough 15.2 mcg/mL
[2023-05-30] MEDS: ZOSYN 3.375 GM Q12H per EXTENDED INFUSION IV SCH ×2 (08:05→22:16)
[2023-05-30] MEDS: SPIRIVA Respimat (tiotropium) 2.5 mcg/inh Inhaler INH SCH (08:50)
[2023-05-30] MEDS: DULoxetine DR 60 mg CAP PO SCH (10:21)
[2023-05-30] MEDS: Insulin GLARGINE 100 un/ml 10 ml VIAL SUBCUT SCH (22:16)
[2023-05-31 06:24] LABS: ABS Basophils 0.1 10^3/uL (0.0-0.1); ABS Eosinophils 0.3 10^3/uL (0.0-0.5); ABS Monocytes 0.9 10^3/uL (0.0-0.9); ABS Neutrophils 8.1 10^3/uL (1.5-7.6); Hematocrit 27.1 % (35-45); Hemoglobin 8.8 g/dL (11.5-14.3); Lymphocyte % 9.7 %; Mean Corpuscular Hemoglobin 29.6 pg (27-33); Mean Corpuscular Hgb Conc 32.6 g/dL (31-36); Mean Corpuscular Volume 90.7 fL (80-97); Mean Platelet Volume 6.9 fL (7.5-11.2); Platelet Count 401 10^3/uL (150-450); Red Blood Count 2.99 10^6/uL (3.63-4.92); Red Cell Distribution Width 14.7 % (12-17); White Blood Count 10.4 10^3/uL (3.8-11.8)
[2023-05-31 06:39] LABS: Calcium 8.8 mg/dL (8.6-10.3); Creatinine, Serum 1.23 mg/dL (0.51-0.95); Potassium 4.4 mmol/L (3.5-5.0); eGFR CKD-EPI 46.1 (>60)
[2023-05-31] MEDS: SPIRIVA Respimat (tiotropium) 2.5 mcg/inh Inhaler INH SCH (07:13)
[2023-05-31] MEDS: ZOSYN 3.375 GM Q12H per EXTENDED INFUSION IV SCH (07:53)
[2023-05-31] MEDS: DULoxetine DR 60 mg CAP PO SCH (08:54)
[2023-05-31] MEDS: Amoxicillin/Clavul 875/125 TAB (Augmentin 875 tab) PO SCH (21:16)
[2023-05-31] MEDS: Insulin GLARGINE 100 un/ml 10 ml VIAL SUBCUT SCH (21:35)
[2023-05-31] MEDS: oxyCODONE/Acetamin 5/325 mg TAB PO PRN (21:36)
[2023-06-01 07:14] LABS: Hematocrit 30.3 % (35-45); Hemoglobin 9.7 g/dL (11.5-14.3); Mean Corpuscular Hemoglobin 29.4 pg (27-33); Mean Corpuscular Hgb Conc 31.9 g/dL (31-36); Mean Corpuscular Volume 92.2 fL (80-97); Mean Platelet Volume 6.8 fL (7.5-11.2); Platelet Count 393 10^3/uL (150-450); Red Blood Count 3.29 10^6/uL (3.63-4.92); Red Cell Distribution Width 14.9 % (12-17); White Blood Count 10.5 10^3/uL (3.8-11.8)
[2023-06-01 07:23] LABS: Anion Gap 7 mmol/L (2-16); Blood Urea Nitrogen 37 mg/dL (6-24); CO2 Carbon Dioxide 29 mmol/L (22-32); Calcium 9.5 mg/dL (8.6-10.3); Chloride 100 mmol/L (101-111); Creatinine, Serum 1.02 mg/dL (0.51-0.95); Glucose 202 mg/dL (70-100); Sodium 136 mmol/L (135-145); eGFR CKD-EPI 57.7 (>60)
[2023-06-01] MEDS: oxyCODONE/Acetamin 5/325 mg TAB PO PRN ×2 (08:43→20:22)
[2023-06-01] MEDS: DULoxetine DR 60 mg CAP PO SCH (08:44)
[2023-06-01] MEDS: Amoxicillin/Clavul 875/125 TAB (Augmentin 875 tab) PO SCH ×2 (08:44→20:21)
[2023-06-01] MEDS: SPIRIVA Respimat (tiotropium) 2.5 mcg/inh Inhaler INH SCH (09:24)
[2023-06-01] MEDS: Insulin GLARGINE 100 un/ml 10 ml VIAL SUBCUT SCH (20:24)
[2023-06-02] MEDS: SPIRIVA Respimat (tiotropium) 2.5 mcg/inh Inhaler INH SCH (07:43)
[2023-06-02] MEDS: Amoxicillin/Clavul 875/125 TAB (Augmentin 875 tab) PO SCH ×2 (08:43→21:14)
[2023-06-02] MEDS: DULoxetine DR 60 mg CAP PO SCH (08:43)
[2023-06-02] MEDS: oxyCODONE/Acetamin 5/325 mg TAB PO PRN ×2 (08:48→21:15)
[2023-06-02 12:56] LABS: ABS Basophils 0.1 10^3/uL (0.0-0.1); ABS Eosinophils 0.2 10^3/uL (0.0-0.5); ABS Lymphocytes 0.8 10^3/uL (1.0-4.8); ABS Monocytes 0.6 10^3/uL (0.0-0.9); ABS Neutrophils 9.6 10^3/uL (1.5-7.6); Eosinophil % 1.5 %; Hematocrit 29.2 % (35-45); Hemoglobin 9.3 g/dL (11.5-14.3); Lymphocyte % 7.4 %; Mean Corpuscular Hgb Conc 31.8 g/dL (31-36); Mean Corpuscular Volume 91.2 fL (80-97); Mean Platelet Volume 6.9 fL (7.5-11.2); Platelet Count 363 10^3/uL (150-450); Red Cell Distribution Width 14.7 % (12-17); White Blood Count 11.3 10^3/uL (3.8-11.8)
[2023-06-02 13:13] LABS: Calcium 9.5 mg/dL (8.6-10.3); Creatinine, Serum 1.03 mg/dL (0.51-0.95); Potassium 5.7 mmol/L (3.5-5.0); eGFR CKD-EPI 57.1 (>60)
[2023-06-02] MEDS: Insulin GLARGINE 100 un/ml 10 ml VIAL SUBCUT SCH (21:14)
[2023-06-02] MEDS: Nystatin TOP POWDER 15 GM BTL TOPICAL SCH (22:01)
[2023-06-03] MEDS: SPIRIVA Respimat (tiotropium) 2.5 mcg/inh Inhaler INH SCH (08:14)
[2023-06-03] MEDS: Amoxicillin/Clavul 875/125 TAB (Augmentin 875 tab) PO SCH ×2 (08:28→21:34)
[2023-06-03] MEDS: DULoxetine DR 60 mg CAP PO SCH (08:28)
[2023-06-03] MEDS: Nystatin TOP POWDER 15 GM BTL TOPICAL SCH ×3 (08:29→21:35)
[2023-06-03] MEDS: oxyCODONE/Acetamin 5/325 mg TAB PO PRN ×2 (08:34→21:35)
[2023-06-03 09:53] LABS: Hematocrit 30.6 % (35-45); Hemoglobin 9.9 g/dL (11.5-14.3); Mean Corpuscular Hemoglobin 29.7 pg (27-33); Mean Corpuscular Hgb Conc 32.4 g/dL (31-36); Mean Corpuscular Volume 91.8 fL (80-97); Mean Platelet Volume 6.7 fL (7.5-11.2); Platelet Count 335 10^3/uL (150-450); Red Blood Count 3.33 10^6/uL (3.63-4.92); Red Cell Distribution Width 15.4 % (12-17); White Blood Count 9.8 10^3/uL (3.8-11.8)
[2023-06-03] MEDS ORDERED: Furosemide 20 mg/2 ml IV VIAL IV ONE (10:36)
[2023-06-03 10:45] LABS: Albumin 3.6 g/dL (3.2-5.2); Albumin/Globulin Ratio 1.3 (1-3); Calcium 9.3 mg/dL (8.6-10.3); Creatinine, Serum 1.13 mg/dL (0.51-0.95); Globulin 2.7 g/dL (2-4); Magnesium 1.6 mg/dL (1.9-2.7); Total Bilirubin 0.4 mg/dL (0.2-1.0); Total Protein 6.3 g/dL (6.4-8.9); eGFR CKD-EPI 51.1 (>60)
[2023-06-03] MEDS: SODIUM ZIRCONIUM CYCLOSILICATE 10 GM PACKET PO SCH ×2 (11:46→21:37)
[2023-06-03] MEDS ORDERED: Magnesium Sulfate 2 gm BAG 2 GM/50 ML BAG IVPB ONE (15:00)
[2023-06-03 16:31] LABS: Calcium 9.4 mg/dL (8.6-10.3); Creatinine, Serum 1.33 mg/dL (0.51-0.95); Potassium 5.6 mmol/L (3.5-5.0)
[2023-06-03] MEDS: Insulin GLARGINE 100 un/ml 10 ml VIAL SUBCUT SCH (21:35)
[2023-06-04 06:33] LABS: Creatinine, Serum 1.2 mg/dL (0.51-0.95); Potassium 4.5 mmol/L (3.5-5.0); eGFR CKD-EPI 47.5 (>60)
[2023-06-04] MEDS: SPIRIVA Respimat (tiotropium) 2.5 mcg/inh Inhaler INH SCH (07:35)
[2023-06-04] MEDS: DULoxetine DR 60 mg CAP PO SCH (07:53)
[2023-06-04] MEDS: Amoxicillin/Clavul 875/125 TAB (Augmentin 875 tab) PO SCH ×2 (07:53→20:30)
[2023-06-04] MEDS: Nystatin TOP POWDER 15 GM BTL TOPICAL SCH ×3 (07:54→21:00)
[2023-06-04] MEDS: SODIUM ZIRCONIUM CYCLOSILICATE 10 GM PACKET PO SCH (07:57)
[2023-06-04] MEDS ORDERED: Sulfur Hexaflouride MICROSPHR 25 MG VIAL ONE (09:35)
[2023-06-04] MEDS: oxyCODONE/Acetamin 5/325 mg TAB PO PRN ×2 (10:12→20:29)
[2023-06-04 10:38] LABS: Magnesium 2.1 mg/dL (1.9-2.7)
[2023-06-04] MEDS ORDERED: Furosemide 40 mg/4 ml IV VIAL IV ONE (11:02)
[2023-06-04] MEDS ORDERED: Enoxaparin 40 MG/0.4 ML SYR SUBCUT SCH (12:00)
[2023-06-04] MEDS: Enoxaparin 100 MG/ML SYR SUBCUT SCH (20:28)
[2023-06-04] MEDS: Insulin GLARGINE 100 un/ml 10 ml VIAL SUBCUT SCH (20:55)
[2023-06-05] MEDS: oxyCODONE/Acetamin 5/325 mg TAB PO PRN ×2 (01:43→14:10)
[2023-06-05 05:52] LABS: ABS Basophils 0.1 10^3/uL (0.0-0.1); ABS Eosinophils 0.1 10^3/uL (0.0-0.5); ABS Lymphocytes 1.2 10^3/uL (1.0-4.8); ABS Monocytes 0.4 10^3/uL (0.0-0.9); ABS Neutrophils 7.1 10^3/uL (1.5-7.6); Eosinophil % 1.5 %; Hematocrit 30.4 % (35-45); Hemoglobin 9.8 g/dL (11.5-14.3); Lymphocyte % 13.2 %; Mean Corpuscular Hemoglobin 29.4 pg (27-33); Mean Corpuscular Hgb Conc 32.3 g/dL (31-36); Mean Platelet Volume 7.5 fL (7.5-11.2); Platelet Count 318 10^3/uL (150-450); Red Blood Count 3.34 10^6/uL (3.63-4.92); Red Cell Distribution Width 15.2 % (12-17); White Blood Count 8.9 10^3/uL (3.8-11.8)
[2023-06-05 06:56] LABS: Calcium 9.2 mg/dL (8.6-10.3); Creatinine, Serum 1.66 mg/dL (0.51-0.95); Potassium 4.3 mmol/L (3.5-5.0); eGFR CKD-EPI 32.2 (>60)
[2023-06-05] MEDS: SPIRIVA Respimat (tiotropium) 2.5 mcg/inh Inhaler INH SCH (08:01)
[2023-06-05] MEDS: Enoxaparin 100 MG/ML SYR SUBCUT SCH (09:06)
[2023-06-05] MEDS: Nystatin TOP POWDER 15 GM BTL TOPICAL SCH (09:55)
[2023-06-05 10:18] VITALS: BP 155/71
[2023-06-05] MEDS: DULoxetine DR 60 mg CAP PO SCH (11:27)
[2023-06-05 11:29] LABS: Rapid COVID-19 Molecular Undetected (Undetected)
[2023-06-05] MEDS ORDERED: DULoxetine DR 30 mg CAP PO SCH (12:00)
[2023-06-05] MEDS ORDERED: COVID VAC 23-24(12+)(Moderna) SYR 0.5 ML IM ONE (12:00)
== END 2023-06-05 14:15 | DRG 308 ==
LOC: ED 11:58 → EDHOLD 11:58 → SUATTDRO 18:57 → MEDTELE 21:58 → SUATTDRO 05-24 10:21
PROVIDERS: ADMIT Internal Medicine; ATTEND Internal Medicine

== ENCOUNTER 2023-07-17 17:26 | Inpatient (IN) ==
[2023-07-17] MEDS: Lactated Ringers 1000 ml BAG 1,000 ML IV SCH ×2 (18:45→22:56)
[2023-07-17] MEDS: Lactated Ringers 1000 ml BAG 1,000 ML IV ONE (18:46)
[2023-07-17 18:51] LABS: ABS Basophils 0.1 10^3/uL (0.0-0.1); ABS Eosinophils 0.1 10^3/uL (0.0-0.5); ABS Lymphocytes 0.7 10^3/uL (1.0-4.8); ABS Monocytes 0.4 10^3/uL (0.0-0.9); ABS Neutrophils 7.6 10^3/uL (1.5-7.6); ABS Nucleated RBC 0.01 10^3/ul; Eosinophil % 1.1 %; Hematocrit 39.2 % (35-45); Hemoglobin 13.2 g/dL (11.5-14.3); Mean Corpuscular Hemoglobin 29.8 pg (27-33); Mean Corpuscular Hgb Conc 33.5 g/dL (31-36); Mean Corpuscular Volume 88.9 fL (80-97); Mean Platelet Volume 9.3 fL (7.5-11.2); Nucleated Red Blood Cells % 0.1 %/100WBC (0.0-0.8); Platelet Count 222 10^3/uL (150-450); Red Blood Count 4.41 10^6/uL (3.63-4.92); Red Cell Distribution Width 14.6 % (12-17); White Blood Count 8.9 10^3/uL (3.8-11.8)
[2023-07-17 19:37] LABS: Urine Appearance Extra Turbid; Urine Bilirubin Negative (Negative); Urine Blood 1+ (Negative); Urine Glucose 3+ (>=300 mg/dL) (Negative); Urine Ketones Negative (Negative); Urine Nitrite 1+ (Negative); Urine Protein Trace (Negative); Urine Urobilinogen Negative (Negative)
[2023-07-17 19:43] LABS: ALT 50 U/L (7-52); Albumin 4.1 g/dL (3.2-5.2); Albumin/Globulin Ratio 1.1 (1-3); Alkaline Phosphatase 156 U/L (35-149); Blood Urea Nitrogen 112 mg/dL (6-24); CO2 Carbon Dioxide 24 mmol/L (22-32); Calcium 9.4 mg/dL (8.6-10.3); Chloride 78 mmol/L (101-111); Creatinine, Serum 2.77 mg/dL (0.51-0.95); Globulin 3.6 g/dL (2-4); Glucose 488 mg/dL (70-100); Sodium 123 mmol/L (135-145); Total Bilirubin 0.8 mg/dL (0.2-1.0); Total Protein 7.7 g/dL (6.4-8.9); eGFR CKD-EPI 17.3 (>60)
[2023-07-17 19:43] LABS: Budding Yeast Present /HPF (Absent); Urine Bacteria Absent /HPF (Absent); Urine Red Blood Cell 3+(>10/hpf) /HPF (0-Trace); Urine Squamous Epithelial Cell Present /HPF (Absent); Urine White Blood Cell 3+(>20/hpf) /HPF (0-Trace)
[2023-07-17 19:45] LABS: Urine Color Yellow
[2023-07-17 19:46] LABS: Anion Gap 21 mmol/L (2-16)
[2023-07-17] MEDS: Piperacillin/Tazobac 3.375 BAG 3.375 GM/100 ML BAG IV ONE (20:23)
[2023-07-17 20:31] LABS: Activated Partial Thrombo Time 35.5 seconds (26.0-38.0); INR 2.21 (0.83-1.13)
[2023-07-17 20:49] LABS: High Sensitivity Troponin 1 Hr 12 pg/mL (<15)
[2023-07-17 22:03] LABS: ALT 48 U/L (7-52); Albumin 3.6 g/dL (3.2-5.2); Albumin/Globulin Ratio 1.2 (1-3); Alkaline Phosphatase 139 U/L (35-149); Anion Gap 12 mmol/L (2-16); Blood Urea Nitrogen 110 mg/dL (6-24); CO2 Carbon Dioxide 34 mmol/L (22-32); Calcium 9.4 mg/dL (8.6-10.3); Chloride 83 mmol/L (101-111); Creatinine, Serum 2.55 mg/dL (0.51-0.95); Glucose 390 mg/dL (70-100); Magnesium 1.8 mg/dL (1.9-2.7); Sodium 129 mmol/L (135-145); Total Bilirubin 0.7 mg/dL (0.2-1.0); Total Protein 6.6 g/dL (6.4-8.9); eGFR CKD-EPI 19.1 (>60)
[2023-07-18] MEDS: KCL 10 MEQ/50 ML IVPREMIX 10 MEQ/50 ML BAG IV ONE (00:33)
[2023-07-18] MEDS: Potassium Chlor 20 meq TAB.ER PO ONE ×2 (00:33→09:30)
[2023-07-18] MEDS: Magnesium Sulfate 2 gm BAG 2 GM/50 ML BAG IVPB ONE (01:01)
[2023-07-18] MEDS ORDERED: Dextrose 50% Syringe 50 ml 25 GM/50 ML SYRINGE IV PUSH PRN ×2 (01:59→06:01)
[2023-07-18] MEDS ORDERED: Senna TAB 8.6 mg TAB PO PRN (02:16)
[2023-07-18] MEDS ORDERED: Polyethylene Glycol 3350 17 GM PACKET PO PRN (02:16)
[2023-07-18] MEDS: cefTRIAXone 1 gm/50 mL D5W 1 GM/50 ML BAG IV SCH (02:32)
[2023-07-18] MEDS ORDERED: Levalbuterol 1.25MG/0.5ML NEB.SOL INH PRN (02:34)
[2023-07-18 03:11] LABS: Osmolality Serum 322 mOsm/kg (275-295)
[2023-07-18 03:12] LABS: Urine Osmo 366 mOsm/kg (150-1150)
[2023-07-18 03:31] LABS: Calcium 10.1 mg/dL (8.6-10.3); Creatinine, Serum 2.64 mg/dL (0.51-0.95); Magnesium 2.5 mg/dL (1.9-2.7); eGFR CKD-EPI 18.3 (>60)
[2023-07-18] MEDS: oxyCODONE/Acetamin 5/325 mg TAB PO PRN (04:09)
[2023-07-18] MEDS: D5W 1000 ml BAG 1,000 ML IV SCH (04:37)
[2023-07-18] MEDS: Desmopressin Acetate 4 MCG/ML 1 ML SDV IV ONE (05:21)
[2023-07-18 07:06] LABS: Creatinine, Serum 2.49 mg/dL (0.51-0.95); Potassium 3.4 mmol/L (3.5-5.0); eGFR CKD-EPI 19.7 (>60)
[2023-07-18 07:07] LABS: Calcium 9.6 mg/dL (8.6-10.3)
[2023-07-18 07:10] LABS: ABS Eosinophils 0.1 10^3/uL (0.0-0.5); ABS Lymphocytes 0.8 10^3/uL (1.0-4.8); ABS Monocytes 0.5 10^3/uL (0.0-0.9); ABS Neutrophils 7.3 10^3/uL (1.5-7.6); ABS Nucleated RBC 0.01 10^3/ul; Eosinophil % 1.3 %; Hemoglobin 12.4 g/dL (11.5-14.3); Lymphocyte % 9.5 %; Mean Corpuscular Hemoglobin 29.7 pg (27-33); Mean Corpuscular Hgb Conc 33.4 g/dL (31-36); Mean Corpuscular Volume 88.9 fL (80-97); Mean Platelet Volume 8.9 fL (7.5-11.2); Nucleated Red Blood Cells % 0.2 %/100WBC (0.0-0.8); Platelet Count 227 10^3/uL (150-450); Red Blood Count 4.16 10^6/uL (3.63-4.92); Red Cell Distribution Width 14.6 % (12-17); White Blood Count 8.8 10^3/uL (3.8-11.8)
[2023-07-18] MEDS: SPIRIVA Respimat (tiotropium) 2.5 mcg/inh Inhaler INH SCH (07:45)
[2023-07-18] MEDS: DULoxetine DR 60 mg CAP PO SCH (09:30)
[2023-07-18] MEDS: Polyethylene Glycol 3350 17 GM PACKET PO SCH (09:31)
[2023-07-18] MEDS: Magnesium Hydroxide LIQ 30 ML UDC PO SCH (09:31)
[2023-07-18] MEDS: Senna TAB 8.6 mg TAB PO SCH (20:58)
[2023-07-18] MEDS ORDERED: Insulin GLARGINE 100 un/ml 10 ml VIAL SUBCUT SCH (21:00)
[2023-07-18] MEDS: Insulin GLARGINE 100 un/ml 10 ml VIAL SUBCUT SCH (21:02)
[2023-07-19 06:26] LABS: ABS Basophils 0.1 10^3/uL (0.0-0.1); ABS Eosinophils 0.1 10^3/uL (0.0-0.5); ABS Lymphocytes 1.5 10^3/uL (1.0-4.8); ABS Monocytes 0.6 10^3/uL (0.0-0.9); ABS Neutrophils 4.5 10^3/uL (1.5-7.6); Eosinophil % 2.2 %; Hematocrit 33.1 % (35-45); Hemoglobin 11.1 g/dL (11.5-14.3); Lymphocyte % 21.5 %; Mean Corpuscular Hemoglobin 29.6 pg (27-33); Mean Corpuscular Hgb Conc 33.4 g/dL (31-36); Mean Corpuscular Volume 88.8 fL (80-97); Mean Platelet Volume 8.8 fL (7.5-11.2); Nucleated Red Blood Cells % 0.1 %/100WBC (0.0-0.8); Platelet Count 204 10^3/uL (150-450); Red Blood Count 3.73 10^6/uL (3.63-4.92); Red Cell Distribution Width 14.5 % (12-17); White Blood Count 6.8 10^3/uL (3.8-11.8)
[2023-07-19 06:43] LABS: Calcium 9.7 mg/dL (8.6-10.3); Creatinine, Serum 2.23 mg/dL (0.51-0.95); Magnesium 2.3 mg/dL (1.9-2.7); eGFR CKD-EPI 22.4 (>60)
[2023-07-19] MEDS: Lactulose 30 ml UDC PO SCH (10:30)
[2023-07-20 07:23] LABS: Calcium 9.5 mg/dL (8.6-10.3); Creatinine, Serum 1.72 mg/dL (0.51-0.95); Magnesium 2.2 mg/dL (1.9-2.7); Potassium 3.4 mmol/L (3.5-5.0); eGFR CKD-EPI 30.6 (>60)
[2023-07-20] MEDS: Potassium Chlor 20 meq TAB.ER PO ONE (09:26)
[2023-07-20] MEDS: Lactulose 30 ml UDC PO SCH (13:23)
[2023-07-21 06:34] LABS: Calcium 9.3 mg/dL (8.6-10.3); Creatinine, Serum 1.68 mg/dL (0.51-0.95); eGFR CKD-EPI 31.5 (>60)
[2023-07-22 06:54] LABS: ABS Basophils 0.1 10^3/uL (0.0-0.1); ABS Eosinophils 0.1 10^3/uL (0.0-0.5); ABS Lymphocytes 1.2 10^3/uL (1.0-4.8); ABS Monocytes 0.6 10^3/uL (0.0-0.9); ABS Neutrophils 6.6 10^3/uL (1.5-7.6); Eosinophil % 1.6 %; Hematocrit 31.8 % (35-45); Hemoglobin 10.6 g/dL (11.5-14.3); Lymphocyte % 14.3 %; Mean Corpuscular Hemoglobin 30.1 pg (27-33); Mean Corpuscular Hgb Conc 33.2 g/dL (31-36); Mean Corpuscular Volume 90.6 fL (80-97); Mean Platelet Volume 8.8 fL (7.5-11.2); Platelet Count 208 10^3/uL (150-450); Red Blood Count 3.51 10^6/uL (3.63-4.92); Red Cell Distribution Width 14.7 % (12-17); White Blood Count 8.6 10^3/uL (3.8-11.8)
[2023-07-22 07:07] LABS: Calcium 9.3 mg/dL (8.6-10.3); Creatinine, Serum 1.78 mg/dL (0.51-0.95); eGFR CKD-EPI 29.4 (>60)
[2023-07-22 07:35] LABS: Potassium 4.3 mmol/L (3.5-5.0)
[2023-07-23 06:47] LABS: Albumin 3.3 g/dL (3.2-5.2); Albumin/Globulin Ratio 1.4 (1-3); Creatinine, Serum 1.87 mg/dL (0.51-0.95); Globulin 2.4 g/dL (2-4); Potassium 4.5 mmol/L (3.5-5.0); Total Bilirubin 0.3 mg/dL (0.2-1.0); Total Protein 5.7 g/dL (6.4-8.9); eGFR CKD-EPI 27.7 (>60)
[2023-07-23] MEDS: cefTRIAXone 1 gm/50 mL D5W 1 GM/50 ML BAG IV SCH (12:07)
[2023-07-23 13:49] VITALS: BP 94/59
== END 2023-07-23 16:20 | disposition home or self-care (01) | DRG 872 ==
LOC: EDHOLD 17:26 → ED 17:26 → SUATTDRO 07-18 00:30 → MED 07-18 02:37 → SUATTDRO 07-20 11:18
PROVIDERS: ADMIT Internal Medicine; ATTEND Internal Medicine

== ENCOUNTER 2023-08-27 13:53 | Inpatient (IN) ==
[2023-08-27 15:31] LABS: ABS Lymphocytes 0.6 10^3/uL (1.0-4.8); ABS Monocytes 0.4 10^3/uL (0.0-0.9); ABS Neutrophils 6.1 10^3/uL (1.5-7.6); ABS Nucleated RBC 0.01 10^3/ul; Eosinophil % 0.4 %; Hematocrit 29.3 % (35-45); Hemoglobin 9.4 g/dL (11.5-14.3); Lymphocyte % 8.1 %; Mean Corpuscular Hemoglobin 29.6 pg (27-33); Mean Corpuscular Hgb Conc 32.1 g/dL (31-36); Mean Corpuscular Volume 92.2 fL (80-97); Mean Platelet Volume 7.7 fL (7.5-11.2); Nucleated Red Blood Cells % 0.1 %/100WBC (0.0-0.8); Platelet Count 165 10^3/uL (150-450); Red Blood Count 3.17 10^6/uL (3.63-4.92); Red Cell Distribution Width 15.6 % (12-17); White Blood Count 7.1 10^3/uL (3.8-11.8)
[2023-08-27 15:56] LABS: Albumin 3.7 g/dL (3.2-5.2); Albumin/Globulin Ratio 1.7 (1-3); Calcium 8.8 mg/dL (8.6-10.3); Creatinine, Serum 1.51 mg/dL (0.51-0.95); Globulin 2.2 g/dL (2-4); Magnesium 1.8 mg/dL (1.9-2.7); Potassium 4.3 mmol/L (3.5-5.0); Total Bilirubin 1.5 mg/dL (0.2-1.0); Total Protein 5.9 g/dL (6.4-8.9); eGFR CKD-EPI 35.8 (>60)
[2023-08-27 15:59] LABS: Urine Appearance Extra Turbid; Urine Bilirubin Negative (Negative); Urine Blood 1+ (Negative); Urine Glucose 4+ (>=1000 mg/dL) (Negative); Urine Ketones Negative (Negative); Urine Nitrite 1+ (Negative); Urine Protein Negative (Negative); Urine Specific Gravity 1.016 (1.002-1.030); Urine Urobilinogen Negative (Negative); Urine pH 5.5 (5.0-8.0)
[2023-08-27 16:44] LABS: Budding Yeast Present /HPF (Absent); Urine Bacteria 3+ /HPF (Absent); Urine Red Blood Cell 3+(>10/hpf) /HPF (0-Trace); Urine Squamous Epithelial Cell Present /HPF (Absent); Urine White Blood Cell 3+(>20/hpf) /HPF (0-Trace)
[2023-08-27 17:06] LABS: Urine Color Light-Yellow
[2023-08-27 17:11] LABS: High Sensitivity Troponin 1 Hr 25 pg/mL (<15)
[2023-08-27] MEDS: Albuterol 2.5mg/3 ml (0.083%) NEB.SOLN INH ONE (18:23)
[2023-08-27] MEDS: Piperacillin/Tazobac 3.375 BAG 3.375 GM/100 ML BAG IV ONE (18:28)
[2023-08-27] MEDS ORDERED: Dextrose 50% Syringe 50 ml 25 GM/50 ML SYRINGE IV PUSH PRN (21:07)
[2023-08-27] MEDS ORDERED: oxyCODONE/Acetamin 5/325 mg TAB PO PRN (21:13)
[2023-08-27] MEDS: Magnesium Sulfate 2 gm BAG 2 GM/50 ML BAG IVPB ONE (21:13)
[2023-08-27] MEDS: NS 0.9% 1000 ml BAG 1,000 ML IV ONE (21:14)
[2023-08-27] MEDS ORDERED: Naloxone Nasal Spray 4 MG/0.1 ML NASAL.SPR INTRANASAL PRN (21:32)
[2023-08-27] MEDS ORDERED: Levalbuterol 1.25MG/0.5ML NEB.SOL INH PRN (21:34)
[2023-08-28] MEDS: Metoprolol Tartrate 5 mg VIAL 5 ml VIAL (1 mg/ml) IV ONE (01:57)
[2023-08-28 05:28] LABS: ABS Basophils 0.1 10^3/uL (0.0-0.1); ABS Eosinophils 0.1 10^3/uL (0.0-0.5); ABS Lymphocytes 0.9 10^3/uL (1.0-4.8); ABS Monocytes 0.6 10^3/uL (0.0-0.9); ABS Neutrophils 5.8 10^3/uL (1.5-7.6); Eosinophil % 1.2 %; Hematocrit 30.2 % (35-45); Hemoglobin 9.9 g/dL (11.5-14.3); Lymphocyte % 11.8 %; Mean Corpuscular Hemoglobin 29.8 pg (27-33); Mean Corpuscular Hgb Conc 32.6 g/dL (31-36); Mean Corpuscular Volume 91.4 fL (80-97); Mean Platelet Volume 7.9 fL (7.5-11.2); Platelet Count 212 10^3/uL (150-450); Red Blood Count 3.31 10^6/uL (3.63-4.92); Red Cell Distribution Width 15.7 % (12-17); White Blood Count 7.3 10^3/uL (3.8-11.8)
[2023-08-28] MEDS: oxyCODONE/Acetamin 5/325 mg TAB PO PRN (05:37)
[2023-08-28 05:45] LABS: Albumin 3.8 g/dL (3.2-5.2); Albumin/Globulin Ratio 1.5 (1-3); Calcium 8.7 mg/dL (8.6-10.3); Creatinine, Serum 1.74 mg/dL (0.51-0.95); Globulin 2.5 g/dL (2-4); Magnesium 2.2 mg/dL (1.9-2.7); Total Protein 6.3 g/dL (6.4-8.9); eGFR CKD-EPI 30.2 (>60)
[2023-08-28 07:00] LABS: TSH Ultra Thyroid Stim Horm 10.45 mcIU/mL (0.34-5.60)
[2023-08-28 07:11] LABS: Folate 5.43 ng/mL (5.90-24.80)
[2023-08-28 07:15] LABS: Vitamin D Total 25(OH) 73.5 ng/mL (20-50)
[2023-08-28 07:58] LABS: T4, Total 8.71 mcg/dL (6.09-12.23)
[2023-08-28] MEDS: DULoxetine DR 60 mg CAP PO SCH (08:21)
[2023-08-28] MEDS: SPIRIVA Respimat (tiotropium) 2.5 mcg/inh Inhaler INH SCH (09:35)
[2023-08-28] MEDS: cefTRIAXone 1 gm/50 mL D5W 1 GM/50 ML BAG IV SCH (12:43)
[2023-08-28] MEDS: Insulin GLARGINE 100 un/ml 10 ml VIAL SUBCUT SCH (21:10)
[2023-08-28] MEDS ORDERED: cefTRIAXone 1 gm/50 mL D5W 1 GM/50 ML BAG IV SCH (21:45)
[2023-08-28] MEDS ORDERED: Vancomycin per Pharmacy 1 EA NOTE FOLLOW UP PRN (21:59)
[2023-08-28] MEDS: Vancomycin 1500 MG IV - x ONCE IVPB ONE (22:55)
[2023-08-29 06:05] LABS: ABS Eosinophils 0.1 10^3/uL (0.0-0.5); ABS Lymphocytes 0.7 10^3/uL (1.0-4.8); ABS Monocytes 0.5 10^3/uL (0.0-0.9); ABS Neutrophils 4.3 10^3/uL (1.5-7.6); ABS Nucleated RBC 0.01 10^3/ul; Eosinophil % 2.6 %; Hematocrit 26.7 % (35-45); Hemoglobin 8.7 g/dL (11.5-14.3); Lymphocyte % 12.1 %; Mean Corpuscular Hemoglobin 29.7 pg (27-33); Mean Corpuscular Hgb Conc 32.4 g/dL (31-36); Mean Corpuscular Volume 91.8 fL (80-97); Mean Platelet Volume 7.6 fL (7.5-11.2); Nucleated Red Blood Cells % 0.1 %/100WBC (0.0-0.8); Platelet Count 176 10^3/uL (150-450); Red Blood Count 2.91 10^6/uL (3.63-4.92); Red Cell Distribution Width 15.1 % (12-17); White Blood Count 5.6 10^3/uL (3.8-11.8)
[2023-08-29 07:35] LABS: Calcium 8.3 mg/dL (8.6-10.3); Creatinine, Serum 1.87 mg/dL (0.51-0.95); Potassium 4.1 mmol/L (3.5-5.0); Vancomycin Random 15.5 mcg/mL; eGFR CKD-EPI 27.7 (>60)
[2023-08-29] MEDS: Vancomycin Random Level NOTE FOLLOW UP ONE (08:36)
[2023-08-29] MEDS ORDERED: Insulin GLARGINE 100 un/ml 10 ml VIAL SUBCUT SCH (21:00)
[2023-08-29] MEDS: Insulin GLARGINE 100 un/ml 10 ml VIAL SUBCUT SCH (21:06)
[2023-08-30 06:21] LABS: Calcium 8.3 mg/dL (8.6-10.3); Creatinine, Serum 1.74 mg/dL (0.51-0.95); Potassium 4.5 mmol/L (3.5-5.0); eGFR CKD-EPI 30.2 (>60)
[2023-08-30] MEDS: Cefepime 1 GM in Dextrose 1 GM/50 ML BAG IV SCH (11:36)
[2023-08-30] MEDS: Sulfamethox/Trimethoprim DS TAB 800/160 mg PO SCH (12:10)
[2023-08-30] MEDS ORDERED: Polyethylene Glycol 3350 17 GM PACKET PO PRN (20:05)
[2023-08-30] MEDS ORDERED: Senna TAB 8.6 mg TAB PO PRN (21:51)
[2023-08-30] MEDS: Senna TAB 8.6 mg TAB PO ONE (22:06)
[2023-08-31 06:41] LABS: Anion Gap 12 mmol/L (2-16); Blood Urea Nitrogen 39 mg/dL (6-24); CO2 Carbon Dioxide 22 mmol/L (22-32); Calcium 8.5 mg/dL (8.6-10.3); Chloride 98 mmol/L (101-111); Creatinine, Serum 1.66 mg/dL (0.51-0.95); Glucose 134 mg/dL (70-100); Sodium 132 mmol/L (135-145)
[2023-08-31] MEDS: Furosemide 20 mg/2 ml IV VIAL IV ONE (12:01)
[2023-09-02 11:17] LABS: Rapid COVID-19 Molecular Undetected (Undetected)
[2023-09-03 06:06] VITALS: BP 143/113
== END 2023-09-03 09:15 | DRG 872 ==
LOC: ED 13:53 → EDHOLD 13:53 → SUATTDRO 18:54 → MED 22:31 → SUATTDRO 08-28 15:37
PROVIDERS: ADMIT Internal Medicine; ATTEND Student in an Organized Health Care Education/Training Program

== ENCOUNTER 2023-11-01 11:15 | Inpatient (IN) ==
[2023-11-01 12:57] LABS: ABS Eosinophils 0.1 10^3/uL (0.0-0.5); ABS Lymphocytes 0.5 10^3/uL (1.0-4.8); ABS Monocytes 0.4 10^3/uL (0.0-0.9); ABS Neutrophils 3.6 10^3/uL (1.5-7.6); ABS Nucleated RBC 0.02 10^3/ul; Eosinophil % 2.5 %; Hematocrit 26.4 % (35-45); Hemoglobin 8.4 g/dL (11.5-14.3); Mean Corpuscular Hemoglobin 28.5 pg (27-33); Mean Corpuscular Volume 89.1 fL (80-97); Mean Platelet Volume 7.9 fL (7.5-11.2); Nucleated Red Blood Cells % 0.5 %/100WBC (0.0-0.8); Platelet Count 180 10^3/uL (150-450); Red Blood Count 2.96 10^6/uL (3.63-4.92); Red Cell Distribution Width 15.6 % (12-17); White Blood Count 4.7 10^3/uL (3.8-11.8)
[2023-11-01 13:03] LABS: INR 1.58 (0.83-1.13)
[2023-11-01 13:16] LABS: High Sens Troponin Baseline 14 pg/mL (<15)
[2023-11-01 14:08] LABS: ALT 9 U/L (7-52); AST 13 U/L (13-39); Albumin 3.6 g/dL (3.2-5.2); Albumin/Globulin Ratio 1.4 (1-3); Alkaline Phosphatase 105 U/L (35-149); Anion Gap 9 mmol/L (2-16); Blood Urea Nitrogen 57 mg/dL (6-24); CO2 Carbon Dioxide 35 mmol/L (22-32); Calcium 9.2 mg/dL (8.6-10.3); Chloride 95 mmol/L (101-111); Creatinine, Serum 1.43 mg/dL (0.51-0.95); Globulin 2.5 g/dL (2-4); Glucose 190 mg/dL (70-100); Lipase < 10 U/L (11.0-82.0); Magnesium 2.1 mg/dL (1.9-2.7); Potassium 4.8 mmol/L (3.5-5.0); Sodium 139 mmol/L (135-145); Total Bilirubin 0.6 mg/dL (0.2-1.0); Total Protein 6.1 g/dL (6.4-8.9); eGFR CKD-EPI 38.2 (>60)
[2023-11-01 14:24] LABS: High Sensitivity Troponin 1 Hr 14 pg/mL (<15)
[2023-11-01 15:47] LABS: .Transferrin 239 mg/dL (203-362); Ferritin 81.1 ng/mL (11-307); Total Iron Binding Capacity 335 mcg/dL (250-450)
[2023-11-01 16:01] LABS: % Iron Saturation 9 % (15-55); Iron 29 ug/dL (50-212); Unsaturated Iron Binding 306 ug/dL
[2023-11-01] MEDS ORDERED: Albuterol HFA INHALER 8 gm MDI INH PRN (17:15)
[2023-11-01] MEDS ORDERED: Levalbuterol 1.25MG/0.5ML NEB.SOL INH PRN (18:46)
[2023-11-01] MEDS ORDERED: Dextrose 50% Syringe 50 ml 25 GM/50 ML SYRINGE IV PUSH PRN (18:49)
[2023-11-01 20:01] LABS: TSH Ultra Thyroid Stim Horm 22.17 mcIU/mL (0.34-5.60)
[2023-11-01] MEDS: Senna TAB 8.6 mg TAB PO SCH (21:28)
[2023-11-01] MEDS: Bumetanide IV 0.25 MG/ML 4 ml VIAL (1 mg) IV SLOW PU SCH (21:28)
[2023-11-01] MEDS: Insulin GLARGINE 100 un/ml 10 ml VIAL SUBCUT SCH (21:32)
[2023-11-01] MEDS: Ferric Gluconate IV 250 MG in NS 0.9% 250 ml 200 ML IVPB SCH (22:34)
[2023-11-02 06:42] LABS: Calcium 8.9 mg/dL (8.6-10.3); Creatinine, Serum 1.48 mg/dL (0.51-0.95); Magnesium 1.9 mg/dL (1.9-2.7); Potassium 4.4 mmol/L (3.5-5.0); eGFR CKD-EPI 36.7 (>60)
[2023-11-02] MEDS: DULoxetine DR 60 mg CAP PO SCH (08:00)
[2023-11-02] MEDS: SPIRIVA Respimat (tiotropium) 2.5 mcg/inh Inhaler INH SCH (08:03)
[2023-11-02 08:32] LABS: ABS Eosinophils 0.1 10^3/uL (0.0-0.5); ABS Lymphocytes 0.6 10^3/uL (1.0-4.8); ABS Monocytes 0.4 10^3/uL (0.0-0.9); ABS Neutrophils 2.7 10^3/uL (1.5-7.6); ABS Nucleated RBC 0.01 10^3/ul; Eosinophil % 2.2 %; Hematocrit 25.3 % (35-45); Mean Corpuscular Hemoglobin 28.1 pg (27-33); Mean Corpuscular Hgb Conc 31.6 g/dL (31-36); Mean Corpuscular Volume 88.9 fL (80-97); Mean Platelet Volume 7.6 fL (7.5-11.2); Nucleated Red Blood Cells % 0.1 %/100WBC (0.0-0.8); Platelet Count 147 10^3/uL (150-450); Red Blood Count 2.84 10^6/uL (3.63-4.92); Red Cell Distribution Width 15.1 % (12-17); White Blood Count 3.8 10^3/uL (3.8-11.8)
[2023-11-02 11:46] LABS: PCO2 Arterial 50 mmHg (35-45); PO2 Arterial 102 mmHg (80-100)
[2023-11-02] MEDS: Sulfur Hexaflouride MICROSPHR 25 MG VIAL IV ONE (11:55)
[2023-11-02] MEDS: Oxymetazoline 0.05% NASAL SPR 15 ML BTL BOTH NARES ONE (12:37)
[2023-11-02] MEDS: Bumetanide IV 0.25 MG/ML 4 ml VIAL (1 mg) IV SLOW PU ONE ×2 (12:38→17:04)
[2023-11-02] MEDS: Magnesium Sulfate IV 1GM/100ML 1 GM/100 ML BAG IV ONE (12:41)
[2023-11-02] MEDS: Magnesium Sulfate 2 gm BAG 2 GM/50 ML BAG ONE (12:43)
[2023-11-02 13:47] LABS: ABS Eosinophils 0.1 10^3/uL (0.0-0.5); ABS Lymphocytes 0.5 10^3/uL (1.0-4.8); ABS Monocytes 0.2 10^3/uL (0.0-0.9); ABS Neutrophils 2.3 10^3/uL (1.5-7.6); ABS Nucleated RBC 0.01 10^3/ul; Eosinophil % 2.3 %; Hematocrit 22.1 % (35-45); Hemoglobin 7.1 g/dL (11.5-14.3); Lymphocyte % 16.6 %; Mean Corpuscular Hgb Conc 31.9 g/dL (31-36); Mean Corpuscular Volume 87.8 fL (80-97); Mean Platelet Volume 7.2 fL (7.5-11.2); Nucleated Red Blood Cells % 0.2 %/100WBC (0.0-0.8); Platelet Count 137 10^3/uL (150-450); Red Blood Count 2.52 10^6/uL (3.63-4.92); Red Cell Distribution Width 15.3 % (12-17); White Blood Count 3.1 10^3/uL (3.8-11.8)
[2023-11-02] MEDS: Norepinephrine 16 MG/250mL NS 16,000 MCG/250 ML BAG IV SCH (13:47)
[2023-11-02 14:05] LABS: Albumin/Globulin Ratio 1.5 (1-3); Calcium 8.7 mg/dL (8.6-10.3); Creatinine, Serum 1.4 mg/dL (0.51-0.95); Total Bilirubin 0.6 mg/dL (0.2-1.0); eGFR CKD-EPI 39.2 (>60)
[2023-11-02 14:43] LABS: Hematocrit 23.5 % (35-45); Hemoglobin 7.7 g/dL (11.5-14.3)
[2023-11-02 15:08] LABS: High Sensitivity Troponin 1 Hr 16 pg/mL (<15)
[2023-11-02] MEDS ORDERED: .Amiodarone 24HR ONLY IV Protocol Order Note IV ONE (18:49)
[2023-11-02] MEDS: oxyCODONE/Acetamin 5/325 mg TAB PO PRN (19:13)
[2023-11-02] MEDS: Amiodarone 150 mg IVPREMIX 150 MG/100 ML BAG IV ONE (19:35)
[2023-11-02] MEDS: Amiodarone 360 MG IVPREMIX 360 MG/200 ML BAG IV SCH (19:50)
[2023-11-03] MEDS: Amiodarone 360 MG IVPREMIX 360 MG/200 ML BAG IV SCH (01:14)
[2023-11-03 04:00] LABS: ABS Basophils 0.1 10^3/uL (0.0-0.1); ABS Eosinophils 0.2 10^3/uL (0.0-0.5); ABS Lymphocytes 0.7 10^3/uL (1.0-4.8); ABS Monocytes 0.6 10^3/uL (0.0-0.9); ABS Neutrophils 4.9 10^3/uL (1.5-7.6); ABS Nucleated RBC 0.01 10^3/ul; Eosinophil % 3.2 %; Hematocrit 25.4 % (35-45); Hemoglobin 8.2 g/dL (11.5-14.3); Lymphocyte % 10.4 %; Mean Corpuscular Hemoglobin 28.6 pg (27-33); Mean Corpuscular Hgb Conc 32.2 g/dL (31-36); Mean Corpuscular Volume 88.8 fL (80-97); Mean Platelet Volume 7.6 fL (7.5-11.2); Nucleated Red Blood Cells % 0.1 %/100WBC (0.0-0.8); Platelet Count 167 10^3/uL (150-450); Red Blood Count 2.86 10^6/uL (3.63-4.92); Red Cell Distribution Width 15.2 % (12-17); White Blood Count 6.4 10^3/uL (3.8-11.8)
[2023-11-03 04:31] LABS: Calcium 8.8 mg/dL (8.6-10.3); Creatinine, Serum 1.67 mg/dL (0.51-0.95); Magnesium 2.3 mg/dL (1.9-2.7); Potassium 4.3 mmol/L (3.5-5.0); eGFR CKD-EPI 31.8 (>60)
[2023-11-03 04:43] LABS: Urine Appearance Clear; Urine Bilirubin Negative (Negative); Urine Blood Negative (Negative); Urine Color Yellow; Urine Glucose Negative (Negative); Urine Ketones Negative (Negative); Urine Nitrite Negative (Negative); Urine Protein Negative (Negative); Urine Specific Gravity 1.017 (1.002-1.030); Urine Urobilinogen Negative (Negative)
[2023-11-03 04:52] LABS: Urine Bacteria 1+ /HPF (Absent); Urine Red Blood Cell Absent /HPF (0-Trace); Urine Squamous Epithelial Cell Present /HPF (Absent); Urine White Blood Cell 1+(6-10/hpf) /HPF (0-Trace)
[2023-11-03] MEDS: Amiodarone 400 mg TAB PO SCH (21:11)
[2023-11-03] MEDS: Nystatin TOP POWDER 15 GM BTL TOPICAL SCH (21:13)
[2023-11-04 05:53] LABS: Albumin 3.4 g/dL (3.2-5.2); Albumin/Globulin Ratio 1.5 (1-3); Creatinine, Serum 1.86 mg/dL (0.51-0.95); Globulin 2.2 g/dL (2-4); Potassium 4.2 mmol/L (3.5-5.0); Total Bilirubin 0.7 mg/dL (0.2-1.0); Total Protein 5.6 g/dL (6.4-8.9); eGFR CKD-EPI 27.9 (>60)
[2023-11-04 07:56] LABS: Magnesium 2.2 mg/dL (1.9-2.7)
[2023-11-04 11:18] LABS: PCO2 Arterial 52 mmHg (35-45); PO2 Arterial 108 mmHg (80-100)
[2023-11-04] MEDS ORDERED: Midazolam 5 mg/5 ml VIAL 1 mg/ml 5 ml VIAL (5 mg) ONE (11:31)
[2023-11-04] MEDS ORDERED: Naloxone 0.4 mg VIAL 0.4 mg/ml 1 ml VIAL ONE (11:31)
[2023-11-04] MEDS ORDERED: Flumazenil 0.5 mg/5 ml 0.1 MG/ML 5 ml VIAL ONE (11:31)
[2023-11-04] MEDS ORDERED: fentaNYL 100 mcg/2 ml 50 MCG/ML VIAL ONE (11:31)
[2023-11-04] MEDS: Midazolam 10 mg/10 ml VIAL 1 mg/ml 10 ml VIAL (10 mg) IV SLOW PU ONE (12:49)
[2023-11-04] MEDS: fentaNYL 100 mcg/2 ml 50 MCG/ML VIAL IV SLOW PU ONE (12:49)
[2023-11-04 22:40] LABS: PCO2 Arterial 49 mmHg (35-45); PO2 Arterial 158 mmHg (80-100)
[2023-11-04] MEDS: Furosemide 20 mg/2 ml IV VIAL IV ONE (22:59)
[2023-11-05 04:33] LABS: ABS Eosinophils 0.1 10^3/uL (0.0-0.5); ABS Lymphocytes 0.5 10^3/uL (1.0-4.8); ABS Monocytes 0.6 10^3/uL (0.0-0.9); ABS Neutrophils 4.5 10^3/uL (1.5-7.6); ABS Nucleated RBC 0.01 10^3/ul; Hemoglobin 7.7 g/dL (11.5-14.3); Lymphocyte % 9.3 %; Mean Corpuscular Hemoglobin 28.3 pg (27-33); Mean Corpuscular Hgb Conc 31.9 g/dL (31-36); Mean Corpuscular Volume 88.9 fL (80-97); Mean Platelet Volume 7.7 fL (7.5-11.2); Nucleated Red Blood Cells % 0.2 %/100WBC (0.0-0.8); Platelet Count 168 10^3/uL (150-450); Red Cell Distribution Width 15.3 % (12-17); White Blood Count 5.8 10^3/uL (3.8-11.8)
[2023-11-05 05:53] LABS: Calcium 8.9 mg/dL (8.6-10.3); Creatinine, Serum 2.04 mg/dL (0.51-0.95); Magnesium 2.2 mg/dL (1.9-2.7); Potassium 4.5 mmol/L (3.5-5.0)
[2023-11-05] MEDS: Furosemide 20 mg/2 ml IV VIAL IV ONE (10:10)
[2023-11-05] MEDS: cefTRIAXone 1 gm/50 mL D5W 1 GM/50 ML BAG IV SCH (13:59)
[2023-11-05] MEDS: Furosemide 40 mg/4 ml IV VIAL IV ONE (15:27)
[2023-11-05] MEDS: Bumetanide IV 0.25 MG/ML 4 ml VIAL (1 mg) IV SLOW PU ONE (19:50)
[2023-11-05 20:56] LABS: Magnesium 2.2 mg/dL (1.9-2.7); Potassium 4.9 mmol/L (3.5-5.0)
[2023-11-06 04:43] LABS: ABS Eosinophils 0.2 10^3/uL (0.0-0.5); ABS Lymphocytes 0.5 10^3/uL (1.0-4.8); ABS Monocytes 0.5 10^3/uL (0.0-0.9); ABS Neutrophils 3.4 10^3/uL (1.5-7.6); ABS Nucleated RBC 0.01 10^3/ul; Hematocrit 22.5 % (35-45); Hemoglobin 7.2 g/dL (11.5-14.3); Lymphocyte % 10.7 %; Mean Corpuscular Hemoglobin 28.8 pg (27-33); Mean Corpuscular Hgb Conc 32.2 g/dL (31-36); Mean Corpuscular Volume 89.3 fL (80-97); Nucleated Red Blood Cells % 0.1 %/100WBC (0.0-0.8); Platelet Count 156 10^3/uL (150-450); Red Blood Count 2.52 10^6/uL (3.63-4.92); Red Cell Distribution Width 15.5 % (12-17); White Blood Count 4.6 10^3/uL (3.8-11.8)
[2023-11-06 06:14] LABS: Calcium 8.8 mg/dL (8.6-10.3); Creatinine, Serum 2.39 mg/dL (0.51-0.95); Magnesium 2.2 mg/dL (1.9-2.7); Potassium 4.6 mmol/L (3.5-5.0); eGFR CKD-EPI 20.7 (>60)
[2023-11-06] MEDS: Bumetanide IV 0.25 MG/ML 4 ml VIAL (1 mg) IV SLOW PU SCH ×2 (09:53→17:16)
[2023-11-06 10:27] LABS: Urine Appearance Clear; Urine Bilirubin Negative (Negative); Urine Blood Negative (Negative); Urine Color Light-Yellow; Urine Glucose Negative (Negative); Urine Ketones Negative (Negative); Urine Nitrite Negative (Negative); Urine Protein Negative (Negative); Urine Specific Gravity 1.014 (1.002-1.030); Urine Urobilinogen Negative (Negative)
[2023-11-06 10:35] LABS: Urine Bacteria 1+ /HPF (Absent); Urine Red Blood Cell Trace(0-2/hpf) /HPF (0-Trace); Urine Squamous Epithelial Cell Present /HPF (Absent); Urine White Blood Cell Trace(0-5/hpf) /HPF (0-Trace)
[2023-11-06] MEDS: Bumetanide IV 0.25 MG/ML 4 ml VIAL (1 mg) IV SLOW PU ONE (11:54)
[2023-11-06 18:30] LABS: Magnesium 2.2 mg/dL (1.9-2.7); Potassium 4.9 mmol/L (3.5-5.0)
[2023-11-06] MEDS: Lidocaine 1% MPF 5 ML VIAL INJ ONE (19:22)
[2023-11-06] MEDS: Insulin GLARGINE 100 un/ml 10 ml VIAL SUBCUT SCH (20:19)
[2023-11-07 04:29] LABS: ABS Eosinophils 0.2 10^3/uL (0.0-0.5); ABS Lymphocytes 0.4 10^3/uL (1.0-4.8); ABS Monocytes 0.5 10^3/uL (0.0-0.9); ABS Neutrophils 3.9 10^3/uL (1.5-7.6); ABS Nucleated RBC 0.01 10^3/ul; Eosinophil % 4.3 %; Hematocrit 22.3 % (35-45); Hemoglobin 7.1 g/dL (11.5-14.3); Lymphocyte % 8.6 %; Mean Corpuscular Hemoglobin 28.5 pg (27-33); Mean Corpuscular Hgb Conc 31.7 g/dL (31-36); Mean Corpuscular Volume 89.8 fL (80-97); Mean Platelet Volume 7.3 fL (7.5-11.2); Nucleated Red Blood Cells % 0.2 %/100WBC (0.0-0.8); Platelet Count 169 10^3/uL (150-450); Red Blood Count 2.49 10^6/uL (3.63-4.92); Red Cell Distribution Width 15.8 % (12-17); White Blood Count 5.1 10^3/uL (3.8-11.8)
[2023-11-07] MEDS: Senna TAB 8.6 mg TAB PO PRN (06:02)
[2023-11-07 06:17] LABS: Creatinine, Serum 2.45 mg/dL (0.51-0.95); Magnesium 2.2 mg/dL (1.9-2.7); Potassium 4.6 mmol/L (3.5-5.0)
[2023-11-07 13:02] VITALS: BP 129/56
== END 2023-11-07 13:01 | disposition short-term general hospital (02) | DRG 291 ==
LOC: ED 11:15 → EDHOLD 11:15 → MEDTELE 19:56 → ICU 11-02 11:50
PROVIDERS: ADMIT Internal Medicine; ATTEND Student in an Organized Health Care Education/Training Program

== ENCOUNTER 2023-12-10 14:55 | Observation (INO) ==
[2023-12-10] MEDS: Albuterol/Ipratropium NEB.SOL (2.5/0.5 MG) 3 ML NEB.SOLN INH ONE ×2 (15:23→18:26)
[2023-12-10] MEDS: Furosemide 40 mg/4 ml IV VIAL IV SLOW PU ONE (15:51)
[2023-12-10 16:00] LABS: ABS Lymphocytes 0.4 10^3/uL (1.0-4.8); ABS Monocytes 0.3 10^3/uL (0.0-0.9); ABS Neutrophils 3.4 10^3/uL (1.5-7.6); Eosinophil % 0.7 %; Hematocrit 30.5 % (35-45); Lymphocyte % 9.7 %; Mean Corpuscular Hemoglobin 30.7 pg (27-33); Mean Corpuscular Hgb Conc 32.9 g/dL (31-36); Mean Corpuscular Volume 93.4 fL (80-97); Mean Platelet Volume 7.6 fL (7.5-11.2); Platelet Count 157 10^3/uL (150-450); Red Blood Count 3.27 10^6/uL (3.63-4.92); Red Cell Distribution Width 18.4 % (12-17); White Blood Count 4.1 10^3/uL (3.8-11.8)
[2023-12-10 16:26] LABS: High Sens Troponin Baseline 23 pg/mL (<15)
[2023-12-10 16:53] LABS: ALT 10 U/L (7-52); Albumin 3.9 g/dL (3.2-5.2); Albumin/Globulin Ratio 1.6 (1-3); Alkaline Phosphatase 111 U/L (35-149); Blood Urea Nitrogen 46 mg/dL (6-24); CO2 Carbon Dioxide 29 mmol/L (22-32); Chloride 94 mmol/L (101-111); Creatinine, Serum 1.23 mg/dL (0.51-0.95); Globulin 2.4 g/dL (2-4); Glucose 176 mg/dL (70-100); Sodium 132 mmol/L (135-145); Total Bilirubin 0.6 mg/dL (0.2-1.0); Total Protein 6.3 g/dL (6.4-8.9); eGFR CKD-EPI 45.8 (>60)
[2023-12-10] MEDS: Dexamethasone IV 4 MG/ML VIAL 1 ml VIAL IV SLOW PU ONE (16:56)
[2023-12-10 16:57] LABS: Anion Gap 9 mmol/L (2-16)
[2023-12-10 16:57] LABS: PCO2 Arterial 46 mmHg (35-45); PO2 Arterial 79 mmHg (80-100)
[2023-12-10 18:54] LABS: Potassium Redraw 4.3 mmol/L (3.5-5.0)
[2023-12-10] MEDS ORDERED: Albuterol HFA INHALER 8 gm MDI INH PRN (18:54)
[2023-12-10] MEDS ORDERED: Albuterol/Ipratropium NEB.SOL (2.5/0.5 MG) 3 ML NEB.SOLN INH PRN (19:17)
[2023-12-10] MEDS ORDERED: Dextrose 50% Syringe 50 ml 25 GM/50 ML SYRINGE IV PUSH PRN (19:38)
[2023-12-10] MEDS: Furosemide 20 mg/2 ml IV VIAL IV ONE (21:51)
[2023-12-10] MEDS: Insulin GLARGINE 100 un/ml 10 ml VIAL SUBCUT SCH (21:52)
[2023-12-10] MEDS ORDERED: Bumetanide IV 0.25 MG/ML 4 ml VIAL (1 mg) IV SLOW PU ONE (22:03)
[2023-12-10] MEDS: Bumetanide IV 0.25 MG/ML 4 ml VIAL (1 mg) IV SLOW PU ONE (22:12)
[2023-12-10] MEDS: Azithromycin 500 mg/250 ml NS 500 MG/250 ML BAG IVPB SCH (22:20)
[2023-12-11 03:44] LABS: C Reactive Protein 33.55 mg/L (<8.01)
[2023-12-11 05:25] LABS: Hematocrit 34.9 % (35-45); Hemoglobin 11.6 g/dL (11.5-14.3); Mean Corpuscular Hemoglobin 30.9 pg (27-33); Mean Corpuscular Hgb Conc 33.3 g/dL (31-36); Mean Corpuscular Volume 92.9 fL (80-97); Mean Platelet Volume 7.5 fL (7.5-11.2); Platelet Count 162 10^3/uL (150-450); Red Blood Count 3.76 10^6/uL (3.63-4.92); Red Cell Distribution Width 17.9 % (12-17); White Blood Count 2.6 10^3/uL (3.8-11.8)
[2023-12-11 05:44] LABS: Calcium 9.7 mg/dL (8.6-10.3); Creatinine, Serum 1.25 mg/dL (0.51-0.95); Magnesium 1.8 mg/dL (1.9-2.7); Potassium 4.1 mmol/L (3.5-5.0); eGFR CKD-EPI 44.9 (>60)
[2023-12-11] MEDS: Albuterol/Ipratropium NEB.SOL (2.5/0.5 MG) 3 ML NEB.SOLN INH PRN (06:02)
[2023-12-11] MEDS: Azithromycin 500 mg/250 ml NS 500 MG/250 ML BAG IVPB SCH (07:16)
[2023-12-11] MEDS: SPIRIVA Respimat (tiotropium) 2.5 mcg/inh Inhaler INH SCH (07:54)
[2023-12-11] MEDS: DULoxetine DR 60 mg CAP PO SCH (08:16)
[2023-12-11] MEDS: oxyCODONE/Acetamin 5/325 mg TAB PO PRN (16:23)
[2023-12-11] MEDS: Magnesium Sulfate 2 gm BAG 2 GM/50 ML BAG IVPB ONE (20:35)
[2023-12-12] MEDS ORDERED: Albuterol/Ipratropium NEB.SOL (2.5/0.5 MG) 3 ML NEB.SOLN INH PRN (07:54)
[2023-12-12] MEDS ORDERED: Polyethylene Glycol 3350 17 GM PACKET PO PRN (09:30)
[2023-12-12] MEDS ORDERED: Magnesium Hydroxide LIQ 30 ML UDC PO PRN (09:30)
[2023-12-12] MEDS: Azithromycin 500 mg/250 ml NS 500 MG/250 ML BAG IVPB SCH (13:23)
[2023-12-13 09:18] LABS: Rapid COVID-19 Molecular Undetected (Undetected)
[2023-12-13 09:57] VITALS: BP 113/67
== END 2023-12-13 11:20 ==
LOC: EDHOLD 14:55 → ED 14:55 → MEDTELE 18:42 → SUATTDRO 18:42 → MEDTELE 20:14
PROVIDERS: ADMIT Internal Medicine; ATTEND Student in an Organized Health Care Education/Training Program

== ENCOUNTER 2023-12-29 20:22 | Observation (INO) ==
[2023-12-29 23:18] LABS: ABS Basophils 0.1 10^3/uL (0.0-0.1); ABS Eosinophils 0.2 10^3/uL (0.0-0.5); ABS Lymphocytes 0.9 10^3/uL (1.0-4.8); ABS Monocytes 0.4 10^3/uL (0.0-0.9); ABS Neutrophils 7.1 10^3/uL (1.5-7.6); ABS Nucleated RBC 0.01 10^3/ul; Eosinophil % 2.6 %; Hematocrit 30.9 % (35-45); Hemoglobin 10.1 g/dL (11.5-14.3); Lymphocyte % 9.8 %; Mean Corpuscular Hemoglobin 30.5 pg (27-33); Mean Corpuscular Hgb Conc 32.8 g/dL (31-36); Mean Corpuscular Volume 93.1 fL (80-97); Mean Platelet Volume 7.6 fL (7.5-11.2); Nucleated Red Blood Cells % 0.1 %/100WBC (0.0-0.8); Platelet Count 233 10^3/uL (150-450); Red Blood Count 3.32 10^6/uL (3.63-4.92); Red Cell Distribution Width 17.3 % (12-17); White Blood Count 8.7 10^3/uL (3.8-11.8)
[2023-12-29 23:34] LABS: Anion Gap 12 mmol/L (2-16); Blood Urea Nitrogen 58 mg/dL (6-24); CO2 Carbon Dioxide 24 mmol/L (22-32); Calcium 8.1 mg/dL (8.6-10.3); Chloride 102 mmol/L (101-111); Creatinine, Serum 1.47 mg/dL (0.51-0.95); Glucose 87 mg/dL (70-100); Sodium 138 mmol/L (135-145)
[2023-12-30 01:50] LABS: Potassium, Whole Blood 2.4 mmol/L (3.4-4.5)
[2023-12-30] MEDS: KCL 10 MEQ/50 ML IVPREMIX 10 MEQ/50 ML BAG IV ONE (03:03)
[2023-12-30] MEDS: Potassium Chlor 20 meq TAB.ER PO ONE (03:04)
[2023-12-30] MEDS ORDERED: Dextrose 50% Syringe 50 ml 25 GM/50 ML SYRINGE IV PUSH PRN (03:48)
[2023-12-30] MEDS ORDERED: Albuterol HFA INHALER 8 gm MDI INH PRN (03:53)
[2023-12-30] MEDS ORDERED: oxyCODONE/Acetamin 10/325(NF) TAB PO PRN (03:53)
[2023-12-30 07:02] LABS: ABS Basophils 0.1 10^3/uL (0.0-0.1); ABS Eosinophils 0.3 10^3/uL (0.0-0.5); ABS Lymphocytes 1.1 10^3/uL (1.0-4.8); ABS Monocytes 0.4 10^3/uL (0.0-0.9); ABS Neutrophils 5.4 10^3/uL (1.5-7.6); ABS Nucleated RBC 0.01 10^3/ul; Hematocrit 29.3 % (35-45); Hemoglobin 9.8 g/dL (11.5-14.3); Lymphocyte % 15.2 %; Mean Corpuscular Hemoglobin 30.9 pg (27-33); Mean Corpuscular Hgb Conc 33.4 g/dL (31-36); Mean Corpuscular Volume 92.5 fL (80-97); Mean Platelet Volume 7.4 fL (7.5-11.2); Nucleated Red Blood Cells % 0.1 %/100WBC (0.0-0.8); Platelet Count 248 10^3/uL (150-450); Red Blood Count 3.17 10^6/uL (3.63-4.92); Red Cell Distribution Width 17.1 % (12-17); White Blood Count 7.4 10^3/uL (3.8-11.8)
[2023-12-30 07:37] LABS: Calcium 9.3 mg/dL (8.6-10.3); Creatinine, Serum 1.45 mg/dL (0.51-0.95); Magnesium 1.9 mg/dL (1.9-2.7); Potassium 5.3 mmol/L (3.5-5.0); eGFR CKD-EPI 37.6 (>60)
[2023-12-30] MEDS: guaiFENesin 100 mg/5 ml LIQ unit dose cup PO SCH (08:18)
[2023-12-30] MEDS: SPIRIVA Respimat (tiotropium) 2.5 mcg/inh Inhaler INH SCH (08:39)
[2023-12-31 08:17] LABS: Calcium 9.3 mg/dL (8.6-10.3); Creatinine, Serum 1.22 mg/dL (0.51-0.95); Potassium 5.6 mmol/L (3.5-5.0); eGFR CKD-EPI 46.3 (>60)
[2023-12-31] MEDS: Sodium Polystyrene ORAL.SUSP 15 GM/60 ML BTL PO ONE (09:33)
[2023-12-31 12:59] LABS: Anion Gap 7 mmol/L (2-16); Blood Urea Nitrogen 49 mg/dL (6-24); CO2 Carbon Dioxide 24 mmol/L (22-32); Calcium 9.4 mg/dL (8.6-10.3); Chloride 104 mmol/L (101-111); Creatinine, Serum 1.21 mg/dL (0.51-0.95); Glucose 221 mg/dL (70-100); Sodium 135 mmol/L (135-145); eGFR CKD-EPI 46.7 (>60)
[2023-12-31] MEDS: SODIUM ZIRCONIUM CYCLOSILICATE 10 GM PACKET PO ONE (16:52)
[2023-12-31 19:49] LABS: Blood Urea Nitrogen 44 mg/dL (6-24); CO2 Carbon Dioxide 24 mmol/L (22-32); Calcium 8.5 mg/dL (8.6-10.3); Chloride 107 mmol/L (101-111); Creatinine, Serum 0.98 mg/dL (0.51-0.95); Glucose 249 mg/dL (70-100); Sodium 137 mmol/L (135-145); eGFR CKD-EPI 60.2 (>60)
[2023-12-31 20:04] LABS: Potassium, Whole Blood 5.7 mmol/L (3.4-4.5)
[2023-12-31 20:05] LABS: Anion Gap 6 mmol/L (2-16)
[2024-01-01] MEDS: SODIUM ZIRCONIUM CYCLOSILICATE 10 GM PACKET PO ONE (01:50)
[2024-01-01 06:46] LABS: Calcium 9.2 mg/dL (8.6-10.3); Creatinine, Serum 1.03 mg/dL (0.51-0.95); Potassium 4.6 mmol/L (3.5-5.0); eGFR CKD-EPI 56.7 (>60)
[2024-01-01 09:44] LABS: Rapid COVID-19 Molecular Undetected (Undetected)
[2024-01-01 10:48] VITALS: BP 110/40
== END 2024-01-01 12:20 ==
LOC: EDHOLD 20:22 → ED 20:22 → MEDTELE 12-31 15:46
PROVIDERS: ADMIT Hospitalist; ATTEND Internal Medicine